=== PATIENT | female | born 1995 | race Caucasian/White ===

== ENCOUNTER → 2020-10-03 | Outpatient (CLI) | payer OTHER, SELFPAY ==
[2020-10-03 14:13] VITALS: BMI 22.8
[2020-10-07 07:06] LABS: Chlamydia By Nucleic Acid AMP Negative (Negative)
[2020-10-07 12:34] LABS: Gonococcus By Nucleic Acid AMP Negative (Negative)
== END | disposition home or self-care (01) ==
LOC: LABSPEC 16:17
PROVIDERS: Referring Provider Nurse Practitioner Women's Health; Visit Provider Nurse Practitioner Women's Health
DX: Z11.3 Encounter for screening for infections with a predominantly sexual mode of transmission (principal)
CPT/HCPCS: 87491; 87591

== ENCOUNTER → 2021-02-21 14:24 | Outpatient (CLI) | payer OTHER, SELFPAY ==
[2021-02-17 13:47] VITALS: BMI 22.8
--- NOTE | 2021-02-21 14:27 | US_ITS ---
STUDY: ULTRASOUND OF THE FEMALE PELVIS - COMPLETE REASON FOR EXAM: Female, 25 years old. Pain LMP: TECHNIQUE: Transabdominal and Transvaginal TECHNICAL QUALITY: Adequate. COMPARISON: None. FINDINGS: The uterus is anteverted and is in a midline position. The uterus measures 8.4 x 5.6 x 2.9 cm. Normal uterine cervix. The endometrium measures 3.9 mm in thickness, and is hyperechoic. There is no demonstrated endometrial mass. There is no demonstrated myometrial mass. I.U.D. - The patient does have an I.U.D. within the fundus. The right ovary is visualized. The right ovary measures 2.7 x 1.4 x 1.8 cm. There is no right ovarian cyst or ovarian mass. There is no visualized right adnexal mass or complex lesion. There is normal arterial and normal venous vascularity. The left ovary is visualized. The left ovary measures 2.7 x 2.8 x 2.7 cm. There are 2 small left ovarian follicles one measuring 1.1 x 0.9 cm and the other measuring 1.3 x 0.8 cm.. There is no visualized left adnexal mass or complex lesion. There is normal arterial and normal venous vascularity. There is no fluid in the cul-de-sac. The pre void volume of the bladder was 116.48 ml. The post void volume of the bladder was ml. Polycystic ovary disease: No. US/Pelvic (Non ) IMPRESSION: Normal female pelvis. IUD within the pelvis. Small left ovarian follicles. No visualized torsion. Electronically Signed: Laine Martin MD at 3:29 EDT Tel , Service support ,
--- NOTE | 2021-02-21 14:27 | US_ITS ---
STUDY: ULTRASOUND OF THE FEMALE PELVIS - COMPLETE REASON FOR EXAM: Female, 25 years old. Pain LMP: TECHNIQUE: Transabdominal and Transvaginal TECHNICAL QUALITY: Adequate. COMPARISON: None. FINDINGS: The uterus is anteverted and is in a midline position. The uterus measures 8.4 x 5.6 x 2.9 cm. Normal uterine cervix. The endometrium measures 3.9 mm in thickness, and is hyperechoic. There is no demonstrated endometrial mass. There is no demonstrated myometrial mass. I.U.D. - The patient does have an I.U.D. within the fundus. The right ovary is visualized. The right ovary measures 2.7 x 1.4 x 1.8 cm. There is no right ovarian cyst or ovarian mass. There is no visualized right adnexal mass or complex lesion. There is normal arterial and normal venous vascularity. The left ovary is visualized. The left ovary measures 2.7 x 2.8 x 2.7 cm. There are 2 small left ovarian follicles one measuring 1.1 x 0.9 cm and the other measuring 1.3 x 0.8 cm.. There is no visualized left adnexal mass or complex lesion. There is normal arterial and normal venous vascularity. There is no fluid in the cul-de-sac. The pre void volume of the bladder was 116.48 ml. The post void volume of the bladder was ml. Polycystic ovary disease: No. US/Transvaginal Non- IMPRESSION: Normal female pelvis. IUD within the pelvis. Small left ovarian follicles. No visualized torsion. Electronically Signed: Laine Martin MD at 3:29 EDT Tel , Service support ,
== END ==
PROVIDERS: Referring Provider Nurse Practitioner Women's Health; Visit Provider Nurse Practitioner Women's Health
DX: R10.2 Pelvic and perineal pain (principal)
CPT/HCPCS: 76830; 76856; 93976

== ENCOUNTER 2021-04-03 13:45 | Emergency (ER) | payer OTHER, SELFPAY ==
[2021-04-03 13:46] VITALS: BP 123/75; PULSE 89; RESP 14; TEMP 36.2; O2SAT 100; BMI 22.8
--- NOTE | 2021-04-03 14:00 | EDS_ITS ---
HPI History of Present Illness Chief Complaint: Flank Pain Informant: patient Onset/Context/Timing Onset: - (Please read HPI) Context: Sudden Onset Timing: Intermittent Quality: Varies depending on intensity Location: Anterior over right kidney Current Severity: Mild Maximum Severity: Severe Worsened by: Nothing Relieved by: Nothing Associated Symptoms Associated Symptoms: Please read HPI Narrative Narrative: Patient is a 25-year-old female who presents with right anterior abdominal pain located over the right kidney. 2 to 3 weeks ago she experienced back pain. She thought this was due to muscle skeletal pain. Several days ago she had dysuria and cloudy urine. She no longer has cloudy urine or dysuria. She states her menses is a couple daily. She does use an IUD. She states her last menses was a couple days late. She has no signs or symptoms of . She denies fever, chills night sweats. She denies history of renal or ureterolithiasis. She denies history of pyelonephritis. She has a remote history of urinary tract infection. She denies vaginal bleeding or vaginal discharge. She denies intolerance to greasy or fried foods. There is no family history of cholelithiasis. She denies respiratory symptoms. Prior similar symptoms: No Recent Illness/Hospitalization: No PFSH PFSH Medical History no medical history no medical history Home Medications citalopram [Celexa] 20 mg PO DAILY 04/03/21 [History Last Taken Unknown] Allergy/AdvReac Type Severity Reaction Status Date / Time amoxicillin Allergy Rash Verified 04/03/21 13:46 Surgical History History of appendectomy Social History (Updated 04/03/21 @ 14:[address] Fernando Watkins MD) household members: significant other Smoking Status: Never smoker alcohol intake: current alcohol intake frequency: other substance use type: does not use ROS ROS ED Constitutional Constitutional ED: Denies chills, fever(s), subjective or sweats Eyes Eyes: Denies blurry vision, change in vision or diplopia ENT ENT ED: Denies ear pain, rhinorrhea or sore throat Cardiovascular Cardiovascular: Denies chest pain, orthopnea, palpitations or paroxysmal nocturnal dyspnea Respiratory/Chest Respiratory/Chest: Denies cough, dyspnea, dyspnea on exertion, orthopnea or paroxysmal nocturnal dyspnea Gastrointestinal Gastrointestinal: Reports abdominal pain; Denies diarrhea, nausea or vomiting Genitourinary Genitourinary ED: Denies dysuria, hematuria or urinary frequency Musculoskeletal Musculoskeletal: Reports back pain; Denies arthralgias, myalgias or neck pain Integumentary Denies Abrasions or rash Neurologic Neurologic: Denies headache(s), paresthesias or weakness Allergic/Immunologic Allergic/Immunologic ED: Denies mouth swelling or urticaria EXAM Physical Exam Const Vital Signs: 04/03/21 13:46 Temperature 97.2 F L Temperature Source Temporal Pulse Rate 89 Respiratory Rate 14 Blood Pressure 123/75 H Blood Pressure Mean 91 Pulse Ox 100 Oxygen Delivery Method Room Air Positive well nourished and well developed; Negative for obese, cachectic, contractures or unkempt General Appearance ED: well developed and NAD; Negative for unkempt, cachectic, contractures or cyanotic Nutritional Appearance: Negative for cachectic or obese HEENT Reports moist mucous membranes HEENT Narrative: Head is atraumatic normocephalic. Pupils are equal round reactive. Nares patent. Eyes PERRL and EOMs intact bilaterally General Eye ED: Negative for pale conjunctiva or scleral icterus Neck no lymphadenopathy, supple and no JVD Resp normal respiratory effort and clear to auscultation bilaterally Cardio regular rate, regular rhythm, S1 normal heart sound, S2 normal heart sound and no murmurs GI normal to inspection, nondistended, normoactive bowel sounds Palpation: soft and tender other (Over the right kidney) Back/Spine no CVA tenderness Cervical Spine: Negative for cervical spine tenderness Thoracic Spine / Upper Back: Negative for thoracic spinal tenderness or paraspinal muscle tenderness Neuro oriented x3 and CN's II-XII intact bilaterally Sensorium / Orientation: alert Psych mental status grossly normal Appearance: Negative for unkempt Skin no rashes or lesions noted and no wounds MDM MDM MDM Narrative Medical decision making narrative: Differential diagnoses be abdominal pain unknown etiology, pyelonephritis, obstructing ureteral stone, atypical presentation for biliary disease. Lab Data Attestation: I reviewed the patient's lab results. Lab results narrative: Laboratory work-up is unremarkable. CAT scan reveals a right ovarian cyst. This may be the cause of her pain since everything else is normal. Labs: Laboratory Results - last 24 hr 04/03/21 04/03/21 04/03/21 14:00 14:00 14:00 WBC 5.8 RBC 4.54 Hgb 12.9 Hct 39.4 MCV 86.8 MCH 28.4 MCHC 32.7 RDW Std Deviation 38.5 RDW Coeff of [place]sh[place] 12.0 Plt Count 192 MPV 10.7 Immature Gran % (Auto) 0.200 Neut % (Auto) 69.8 Lymph % (Auto) 21.1 [place] % (Auto) 6.5 Eos % (Auto) 1.9 Baso % (Auto) 0.5 Absolute Neuts (auto) 4.1 Absolute Lymphs (auto) 1.23 Nucleated RBC % 0 Sodium 138 Potassium 4.0 Chloride 107 Carbon Dioxide 28.0 Anion Gap 3 L BUN 11 Creatinine 0.71 Estim Creat Clear Calc 124.31 Est GFR (MDRD) Af Amer 131 Est GFR (MDRD) Non-Af 109 BUN/Creatinine Ratio 15.6 Glucose 80 Calcium 8.8 Serum , Qual NEGATIVE Urine Color Urine Clarity Urine pH Ur Specific [place] Urine Protein Urine Glucose (UA) Urine Ketones Urine Occult Blood Urine Nitrite Urine Bilirubin Urine Urobilinogen Ur Leukocyte Esterase Urine RBC Urine WBC Ur Squamous Epith Cells Urine Bacteria Urine Mucus 04/03/21 14:15 WBC RBC Hgb Hct MCV MCH MCHC RDW Std Deviation RDW Coeff of [place] Plt Count MPV Immature Gran % (Auto) Neut % (Auto) Lymph % (Auto) [place] % (Auto) Eos % (Auto) Baso % (Auto) Absolute Neuts (auto) Absolute Lymphs (auto) Nucleated RBC % Sodium Potassium Chloride Carbon Dioxide Anion Gap BUN Creatinine Estim Creat Clear Calc Est GFR (MDRD) Af Amer Est GFR (MDRD) Non-Af BUN/Creatinine Ratio Glucose Calcium Serum , Qual Urine Color Yellow Urine Clarity Sl. Cloudy Urine pH 8.0 Ur Specific [place] 1.015 Urine Protein Negative Urine Glucose (UA) Normal Urine Ketones Negative Urine Occult Blood Negative Urine Nitrite Negative Urine Bilirubin Negative Urine Urobilinogen Normal Ur Leukocyte Esterase Negative Urine RBC 0 SEEN Urine WBC 0 SEEN Ur Squamous Epith Cells 0-5 SEEN Urine Bacteria 0 SEEN Urine Mucus 0 SEEN Radiography Diagnostic Testing: Radiology Impression Abdomen/Pelvis CT 04/03/21 15:05 IMPRESSION: 1.7 cm x 2.6 cm right ovarian cyst. Neither the is seen within the uterus. Electronically Signed: Boom Oneill MD at 15:34 EDT , Service support , Discharge Plan Triage Chief Complaint: Flank Pain ED Provider: Fernando Watkins Dx/Rx/DC Orders Clinical Impression: Cyst of right ovary Instructions: ED Ovarian Cyst Prescriptions: No Action citalopram [Celexa] 20 mg Tablet 20 mg PO DAILY RF: 0 Primary Care Provider: Care Physician,No Primary Referrals: Care Physician,No Primary [Primary Care Provider] - Doctor,Your [STAFF PHYSICIAN] - 1 Week if not improving Disposition Disposition: Home, Self Care
[2021-04-03 14:12] LABS: Absolute Lymphocyte Count 1.23 X10^3/uL (0.83-4.51); Absolute Neutrophil Count 4.1 X10^3/uL (2.0-7.7); Basophil# 0.03 X10^3/uL; Basophil% 0.5 % (0-1); Eosinophil# 0.11 X10^3/uL; Eosinophils% 1.9 % (0-5); Hematocrit 39.4 % (37-47); Hemoglobin 12.9 g/dL (12.0-15.0); Lymphocyte # 1.23 X10^3/ul (0.83-4.51); Lymphocyte % 21.1 % (19-41); Mean Corp Hgb Conc 32.7 g/dL (32-36); Mean Corpuscular Hgb 28.4 pg (27.0-32.0); Mean Corpuscular Volume 86.8 fL (81-99); Mean Platelet Vol. 10.7 fl (6.2-12.0); Monocyte# 0.38 X10^3/uL; Monocyte% 6.5 % (0-10); NRBC Flagged by Analyzer 0 % (0-5); Neutrophil # 4.07 X10^3/uL (2.7-7.7); Neutrophil % 69.8 % (47-70); Platelet Count 192 K/mm3 (150-450); RBC Distribution Width SD 38.5 fl (35.1-43.9); Red Blood Count 4.54 M/mm3 (4.2-5.4); White Blood Count 5.8 K/mm3 (4.4-11.0)
[2021-04-03] MEDS: 0.9% Normal Saline 1,000 ML 250 ML IV (14:17)
[2021-04-03] MEDS: Ketorolac 15 MG/ML Vial IV (14:17)
[2021-04-03 14:21] LABS: Bacteria 0 SEEN /hpf (None Seen); Color, Urine Yellow (Yellow); Glucose, Dipstick Normal (Normal); Ketone-Dipstick Negative (Negative); Leukocyte Esterase-Dipstick Negative /ul (Negative); Mucous, Urine 0 SEEN /hpf (<or=2+); Nitrite-Dipstick Negative (Negative); Occult Blood-Urine Negative /ul (Negative); Protein-Dipstick Negative (Negative); Red Blood Cells-Urine 0 SEEN /hpf (0-5); Specific Gravity, Urine 1.015 (1.002-1.030); Urine Bilirubin Dipstick Negative (Negative); Urine Clarity Sl. Cloudy (Clear); Urine Urobilinogen Normal (Normal); White Blood Cells 0 SEEN /hpf (0-5)
[2021-04-03 14:24] LABS: Anion Gap 3 (5-15); BUN 11 mg/dL (7-18); BUN/Creat Ratio 15.6 RATIO (10-20); Calcium,Total 8.8 mg/dL (8.5-10.1); Chloride 107 mmol/L (98-107); Creatinine, Serum 0.71 mg/dL (0.55-1.02); EST Glomerular Filtration Rate 109 mL/min (>60); Est Glom Filt Rate - Afr Amer 131 mL/min (>60); Estimated Creatinine Clearance 124.31 ml/min; Glucose 80 mg/dL (74-106); Sodium Level 138 mmol/L (136-145)
[2021-04-03 14:27] LABS: Internal QC Validated? YES +Cl - CLEAR BKGD; Pregnancy, Serum, hCG Quali. NEGATIVE Negative
--- NOTE | 2021-04-03 14:27 | CM.ED ---
SW Note Referral Source: Case Find Referral Reason: No Primary Care Physician (PCP) SW reviewed chart and noted that patient has no PCP. SW provided patient with list of [facility] and [facility] Physician List for reference. No other issues or concerns voiced at this time. SW remains available for any additional needs. Plan: Provided patient with PCP information Arlen QUIJANO
[2021-04-03 14:30] LABS: Squamous Epithelial Cells - UA 0-5 SEEN /hpf (5-10)
--- NOTE | 2021-04-03 15:05 | CT_ITS ---
STUDY: CT ABDOMEN AND PELVIS WITHOUT CONTRAST REASON FOR EXAM: Female, 25 years old. Right flank pain with radiation. RADIATION DOSAGE (If Supplied By Facility): CTDIvol = ( 6.61 ) mGy, DLP = ( 333.98 ) mGycm TECHNIQUE: Transaxial images were obtained from the dome of the diaphragm to the symphysis pubis without oral contrast, and without intravenous contrast. Sagittal and coronal images were reconstructed. Individualized dose optimization techniques were used for this CT. COMPARISON: None. FINDINGS: The visualized lung bases are unremarkable. The visualized portions of the heart are within normal limits. Normal liver. Normal gallbladder and extrahepatic biliary system. Normal spleen. Normal pancreas. Normal bilateral adrenal glands. Normal right kidney. Normal left kidney. Normal visualized stomach. Normal small intestine. There are scattered colonic diverticula consistent with diverticulosis. The patient is status post appendectomy. Normal abdominal aorta. Normal inferior vena cava. Normal retroperitoneum. Normal urinary bladder. There is a 1.7 cm x 2.6 cm right ovarian cyst. An IUD is seen within the uterus. Normal abdominal wall. Normal osseous structures. CT/Abdomen/Pelvis without Cont IMPRESSION: 1.7 cm x 2.6 cm right ovarian cyst. Neither the is seen within the uterus. Electronically Signed: Boom Oneill MD at 15:34 EDT , Service support ,
[2021-04-03 16:51] VITALS: BP 118/77; PULSE 64; RESP 16; O2SAT 99
== END 2021-04-03 16:58 | disposition home or self-care (01) ==
PROVIDERS: Emergency Provider Emergency Medicine
DX: N83.201 Unspecified ovarian cyst, right side (principal); Z87.440 Personal history of urinary (tract) infections
CPT/HCPCS: 74176; 80048; 81001; 84703; 85025; 96361; 96374; 99283; A4216

== ENCOUNTER 2021-04-29 11:06 | Day surgery (SDC) | payer OTHER, SELFPAY ==
[2021-04-28 09:32] LABS: Absolute Lymphocyte Count 1.28 X10^3/uL (0.83-4.51); Absolute Neutrophil Count 3.5 X10^3/uL (2.0-7.7); Basophil# 0.03 X10^3/uL; Basophil% 0.6 % (0-1); Eosinophil# 0.21 X10^3/uL; Eosinophils% 3.9 % (0-5); Hematocrit 37.2 % (37-47); Lymphocyte # 1.28 X10^3/ul (0.83-4.51); Lymphocyte % 23.9 % (19-41); Mean Corp Hgb Conc 32.3 g/dL (32-36); Mean Corpuscular Hgb 28.4 pg (27.0-32.0); Mean Corpuscular Volume 87.9 fL (81-99); Mean Platelet Vol. 11.2 fl (6.2-12.0); Monocyte# 0.36 X10^3/uL; Monocyte% 6.7 % (0-10); NRBC Flagged by Analyzer 0 % (0-5); Neutrophil # 3.45 X10^3/uL (2.7-7.7); Neutrophil % 64.5 % (47-70); Platelet Count 190 K/mm3 (150-450); RBC Distribution Width CV 12.1 % (11.6-14.6); Red Blood Count 4.23 M/mm3 (4.2-5.4); White Blood Count 5.4 K/mm3 (4.4-11.0)
[2021-04-29] VITALS (9 sets, daily range): BP systolic 83–114; BP diastolic 53–74; PULSE 69–96; RESP 16–18; TEMP 36.7–37.5; O2SAT 94–100; BMI 22.3
[2021-04-29 11:43] LABS: Internal QC Validated? YES +Cl - CLEAR BKGD; Pregnancy, Urine Negative Negative
[2021-04-29] MEDS: Lactated Ringers 1,000 ML 100 ML IV (11:56)
--- NOTE | 2021-04-29 13:27 | PCM.HP.BLA ---
History and Physical Date of Admission: 04/29/21 Intake Visit Reasons: diag. lap cystoscopy chromotubation Chief Complaint: pre op [employer] Install[employer] Supervisor Required: No Is patient in pain?: No Allergies amoxicillin Allergy (Intermediate, Verified 04/22/21 12:52) Rash Medications ascorbate calcium (vitamin C) 500 mg tablet 500 mg PO DAILY 10/03/20 [History Confirmed 04/22/21] levonorgestrel 20 mcg/24 hours (6 yrs) 52 mg intrauterine device 1 device INTRA-UTER ONCE 10/03/20 [History Confirmed 04/22/21] cetirizine 10 mg capsule 10 mg PO DAILY PRN 01/18/21 [History Confirmed 04/22/21] melatonin 3 mg capsule 3 mg PO HS PRN 01/18/21 [History Confirmed 04/22/21] triamcinolone acetonide 0.1 % topical ointment 1 applic TOPICAL BID #30 g 03/07/21 [Rx Confirmed 04/22/21] citalopram [Celexa] 20 mg PO DAILY 04/03/21 [History Confirmed 04/22/21] Is last menstrual period known: No Post menopausal: No Patient : No : No [facility] Medical History (Updated 04/22/21 @ 12:53 by Rain Landaverde) Anxiety and depression Asthma Surgical History History of appendectomy History of appendectomy Family History Mother Endometriosis Uterine cyst Social History household members: significant other current occupational status: employed current occupation: [employer] - [employer] history of recent travel: No sexually active: Yes Smoking Status: Never smoker alcohol intake: current alcohol intake frequency: other substance use type: does not use diet: gluten free what type of physical activity do you participate in: none seatbelt use: always do you feel safe at home: Yes additional social history: Lesly Rodríguez [facility] diag. lap cystoscopy chromotubation Details: DANIEL MIRANDA is a 25 year old who presents for preop visit still having pelvic pain despite medical treatment with depo provera and iud. Pregancy History 0 Elective abortions Hx Para Spontaneous abortions Hx # Term Pregnancies Ectopic pregnancies Hx # Pregnancies Multiple births # of living children ROS Const Constitutional: Denies fatigue, weight gain or weight loss ENT ENT: Reports system reviewed and no additional complaints, except as documented Cardio Card: Denies chest pain Resp Resp: Denies cough or dyspnea GI GI: Reports as per HPI, abdominal pain and constipation; Denies nausea or vomiting : Denies nipple discharge, urinary frequency, urinary incontinence, urinary hesitancy, urinary urgency, vaginal discharge, vaginal dryness, vaginal odor or vaginal pruritus Musc Musc: Denies arthralgias, back pain or muscle weakness Skin Skin/Breast: Denies alopecia, change in hair, dry skin, breast mass, breast pain, breast skin changes or nipple discharge Neuro Neuro: Reports system reviewed and no additional complaints, except as documented Psych Psych: Reports system reviewed and no additional complaints, except as documented Endo Endo: Denies cold intolerance, excessive sweating, heat intolerance or polydipsia Navin/Lymph Hematologic/Lymphatic: Denies easy bleeding, Denies easy bruising and Denies lymphadenopathy Exam Const General: cooperative, healthy appearing, comfortable, no acute distress and well developed Orientation: alert [facility] Head: normal to inspection and normocephalic Ears: hearing grossly normal bilaterally and external ears normal Nose: external nose normal and nares normal Face and sinus: normal facial exam Neck Neck: normal visual inspection and no lymphadenopathy Thyroid: thyroid normal Chest Chest palpation & inspection: normal inspection of the chest Resp Effort & Inspection: normal respiratory effort Auscultation: clear to auscultation bilaterally Cardio Rate: regular rate Rhythm: regular rhythm Heart Sounds: S1 normal and S2 normal GI Inspection: normal to inspection and non-distended Palpation: soft and no hepatosplenomegaly Musc Other: gross motor intact no deficits, full bilateral strength Skin General: no rashes or lesions noted Neuro General: patient alert, patient awake, moves all extremities and no focal motor deficits Motor: muscle tone normal throughout Extrem General: normal to inspection and no pedal edema Psych Appearance: grossly normal Mental Status: mental status grossly normal Affect: normal affect Speech and Movement: speech and movement normal Coding Level of Care Code No Charge Diagnoses IUD (intrauterine device) in place Z97.5 Pelvic pain R10.2 Assessment and Plan Assessment and Plan (1) IUD (intrauterine device) in place: Status: Acute Comment: have US available at surgery to confirm positioning after surgery (2) Pelvic pain: Status: Chronic Comment: suspect endometriosis. failed ocp, depo provera, and peristent with IUD. plan diagnostic laparoscopy and cystoscopy and chromotubation. Plan - Dr. Yojana Preston MD: After discussing the patient's diagnosis and treatment plan options, patient wishes to proceed with surgical management. I have discussed with the patient the risks, benefits, and alternatives of the procedure which include but are not limited to risks of anesthesia, bleeding, infection, possible damage to bowel, bladder, or surrounding vasculature which could lead to additional surgery to evaluate any complications. Patient agrees to procedure and wishes to proceed. ACOG/uptodate references given for additional information regarding procedure. UPDATE- I have seen the patient and performed any clinically relevant updates to the history and physical exam. Yojana Preston MD
--- NOTE | 2021-04-29 13:28 | DCINST_ITS ---
Discharge Instructions Diet Discharge Diet: No restrictions Activity Discharge Activity: Return to Normal Activity, May Not Drive (for 2 weeks or while taking narcotic pain meds.), May Shower and May Take a Tub Bath (in 7 days) May resume sexual activity in: 1 week Weight Bearing Status: Full weight bearing Dressing / Incision Call your doctor if your incision/area has: Continuous Slow Oozing, Sudden Increased Bleeding, Increased Pain/ Swelling, Increased Redness and Foul Smelling Discharge Call your doctor if you observe: Fever of 101 or Higher, Using more than 1 pad per hour, Shortness of breath, Chest pain and Uncontrolled pain Suture Line Care: Avoid Pulling/Pushing and Avoid Pinching/Bending Remove Dressing in: 1 week (if present) Cleanse incision/area with: Soap & Water and Keep Dressing Clean & Dry Follow Up Care When: Call to make an appointment with your doctor for a fu/incision check in 1- 2 weeks. Test Results: Test results from this visit will be discussed in further detail at your follow-up appointment, if applicable. Discharge Plan Admission Primary Reason for Your Visit: laparoscopy Attending Provider: Yojana Preston Primary Care Provider: Care Physician,Wen Primary Discharge Orders/Prescriptions Prescriptions: New naproxen 250 MG tablet 250 - 500 mg PO Q8H PRN PRN (Reason: MILD PAIN) Qty: 30 RF: 1 Continued ascorbate calcium (vitamin C) 500 mg tablet 500 mg PO DAILY RF: 0 levonorgestrel 20 mcg/24 hours (6 yrs) 52 mg intrauterine device 20 mcg/24 hours (6 yrs) 52 mg intrauterine device 1 device INTRA-UTER ONCE RF: 0 melatonin 3 mg capsule 5 mg PO HS PRN (Reason: Sleep) RF: 0 Zyrtec 10 mg capsule 10 mg PO DAILY RF: 0 triamcinolone acetonide 0.1 % ointment 1 applic topical BID Qty: 30 RF: 2 albuterol 90 mcg/actuation Aerosol 90 mcg INHALATION PRN PRN (Reason: ASTHMA) RF: 0 cranberry 1,000 mg Capsule 1,000 mg PO DAILY RF: 0 citalopram [Celexa] 20 mg Tablet 20 mg PO DAILY RF: 0 Referrals / Follow Up: Care Physician,No Primary [Primary Care Provider] - Disposition Disposition (needs filled in before D/C Order can be placed): Home, Self Care
--- NOTE | 2021-04-29 13:28 | PCM.OPRPT ---
Problems Associated Problem List Diagnoses (1) Pelvic pain: (2) IUD (intrauterine device) in place: (3) Endometriosis determined by laparoscopy: Report of Operation Pre-Operative Diagnosis: see problem list Post-Operative Diagnosis: same Surgery/Procedure Performed:: Diagnostic laparoscopy ablation endometriosis cystoscopy chromotubation, adhesiolysis Description of Surgical Findings:: nl uterus tubes ovaries, patent tubes, endometriosis implants vesical peritoneum, bilateral ovarian fossa, cul de sac, posterior uterine corpus, bilateral bowel to pelvic side wall adhesions Type of Anesthesia: General and Local Specimen's removed: none Drains: none Estimated Blood Loss (mL): 50 Fluids Replaced: crystalloid Description of Procedure: Patient was taken in the operating room and was placed under general anesthesia was prepped and draped in normal sterile fashion in the dorsal lithotomy position. Bladder was drained of clear urine and SCDs were on preoperatively. Uterus was sounded and a uterine manipulator was placed after dilating. Attention was then paid to the abdominal portion of the procedure and the umbilicus was elevated with towel clamps and injected with Marcaine and after a 5 mm incision was made and the Veress needle was entered into the abdomen confirmed to be intra-abdominal with a low opening pressure of less than 5 mmHg. Abdomen was insufflated with CO2 gas and a 5 mm optical trocar was placed under direct visualization. Left lower quadrant ports were placed under direct visualization. See surgical findings for the details of endometriosis implants. Using the LigaSure device bilateral bowel to pelvic sidewall adhesions were taken down bluntly and with the device. Using monopolar energy all endometriosis implants were superficially ablated. Chromotubation was performed and bilateral tubal patency was confirmed without any complication. Cystoscopy was also performed and particulate was seen throughout the fluid that was filling the bladder cavity. The middle right upper part of the bladder below the dome revealed a white fungating lesion that appeared adherent but not particularly vascular. Unclear whether this was a stone regrowth. Will recommend follow-up with urogynecology as an outpatient for evaluation and management. Liver and upper abdomen were visualized notably within normal limits and no other gross abnormalities were seen in the abdomen. All instruments removed from the abdomen after gas was desufflated. Port sites were closed with 3-0 Monocryl Steri's and op sites were applied. All instruments removed from the vagina, IUD was confirmed via ultrasound to be correctly positioned in the fundus of the uterus and the right orientation, and patient was awoken and taken recovery in stable condition. Grafts/Implants Used: none Complications none Admit VTE Documentation VTE Present on Admission: No VTE Mechan Device Prophylaxis: SCD's Multi Select Codes Urinary/Genital Urinary/Genital CPT Codes: 80649 Cystoscopy, 60916 Chromotubation, 29846 Laproscopic ablation endometriosis and Other Procedure See Report ([id number])
[2021-04-29] MEDS: Bupivacaine 0.25% 30 ML Vial (14:15)
[2021-04-29] MEDS: fentaNYL 100 MCG/2 ML Ampul 50 MCG IV (16:47)
== END 2021-04-29 18:57 | disposition home or self-care (01) ==
LOC: SDC 11:07 → AC 11:08
PROVIDERS: Referring Provider Obstetrics & Gynecology; Visit Provider Obstetrics & Gynecology
PROC: (CPT 49320; principal; 2021-04-29 13:50)
DX: N80.9 Endometriosis, unspecified (principal); Z97.5 Presence of (intrauterine) contraceptive device; N73.6 Female pelvic peritoneal adhesions (postinfective)
CPT/HCPCS: 58350; 58662; 36415; 81025; 85025; 86850; 86900; 86901; 87426; C9803; J7120; J2405; Q9968

== ENCOUNTER 2021-09-12 14:56 | Outpatient (CLI) | payer OTHER, SELFPAY ==
[2021-09-12 16:47] LABS: Absolute Lymphocyte Count 1.81 X10^3/uL (0.83-4.51); Absolute Neutrophil Count 5.2 X10^3/uL (2.0-7.7); Basophil# 0.03 X10^3/uL; Basophil% 0.4 % (0-1); Eosinophil# 0.11 X10^3/uL; Eosinophils% 1.5 % (0-5); Hematocrit 40.1 % (37-47); Hemoglobin 13.3 g/dL (12.0-15.0); Lymphocyte # 1.81 X10^3/ul (0.83-4.51); Lymphocyte % 23.9 % (19-41); Mean Corp Hgb Conc 33.2 g/dL (32-36); Mean Corpuscular Hgb 28.7 pg (27.0-32.0); Mean Corpuscular Volume 86.6 fL (81-99); Mean Platelet Vol. 11.2 fl (6.2-12.0); Monocyte# 0.44 X10^3/uL; Monocyte% 5.8 % (0-10); NRBC Flagged by Analyzer 0 % (0-5); Neutrophil # 5.17 X10^3/uL (2.7-7.7); Neutrophil % 68.1 % (47-70); Platelet Count 219 K/mm3 (150-450); RBC Distribution Width CV 12.4 % (11.6-14.6); RBC Distribution Width SD 39.2 fl (35.1-43.9); Red Blood Count 4.63 M/mm3 (4.2-5.4); White Blood Count 7.6 K/mm3 (4.4-11.0)
[2021-09-12 17:39] LABS: Vitamin B12 336 pg/mL (211-911)
[2021-09-12 17:47] LABS: ALB/GLOB Ratio 1.2 RATIO (0.9-2.4); AST(SGOT) 16 U/L (15-37); Alanine Aminotransfer ALT/SGPT 26 U/L (13-56); Albumin, Serum 4.2 g/dL (3.2-5.0); Alkaline Phosphatase 60 U/L (45-117); Anion Gap 5 (5-15); BUN 12 mg/dL (7-18); BUN/Creat Ratio 15.1 RATIO (10-20); Calcium,Total 8.9 mg/dL (8.5-10.1); Chloride 107 mmol/L (98-107); EST Glomerular Filtration Rate 94 mL/min (>60); Est Glom Filt Rate - Afr Amer 114 mL/min (>60); Globulin 3.6 g/dL (2.2-4.2); Glucose 79 mg/dL (74-106); Protein, Total 7.8 g/dL (6.4-8.2); Sodium Level 138 mmol/L (136-145); T4 Free Direct 0.92 ng/dL (0.76-1.46); Thyroid Stim Hormone (TSH) 1.18 uIU/mL (0.358-3.74)
== END 2021-09-12 23:59 | disposition home or self-care (01) ==
PROVIDERS: PCP Internal Medicine; Referring Provider Internal Medicine; Visit Provider Internal Medicine
DX: F41.9 Anxiety disorder, unspecified (principal); F32.A Depression, unspecified
CPT/HCPCS: 36415; 80053; 82607; 84439; 84443; 85025

== ENCOUNTER → 2021-11-10 | Outpatient (CLI) | payer OTHER, SELFPAY ==
[2021-11-10 17:05] LABS: Absolute Lymphocyte Count 1.61 X10^3/uL (0.83-4.51); Absolute Neutrophil Count 4.6 X10^3/uL (2.0-7.7); Basophil# 0.06 X10^3/uL; Basophil% 0.9 % (0-1); Eosinophil# 0.11 X10^3/uL; Eosinophils% 1.6 % (0-5); Hematocrit 37.5 % (37-47); Hemoglobin 12.3 g/dL (12.0-15.0); Lymphocyte # 1.61 X10^3/ul (0.83-4.51); Lymphocyte % 23.9 % (19-41); Mean Corp Hgb Conc 32.8 g/dL (32-36); Mean Corpuscular Hgb 28.3 pg (27.0-32.0); Mean Corpuscular Volume 86.4 fL (81-99); Mean Platelet Vol. 11.2 fl (6.2-12.0); Monocyte# 0.38 X10^3/uL; Monocyte% 5.6 % (0-10); NRBC Flagged by Analyzer 0 % (0-5); Neutrophil # 4.55 X10^3/uL (2.7-7.7); Neutrophil % 67.6 % (47-70); Platelet Count 208 K/mm3 (150-450); RBC Distribution Width SD 38.2 fl (35.1-43.9); Red Blood Count 4.34 M/mm3 (4.2-5.4); White Blood Count 6.7 K/mm3 (4.4-11.0)
== END | disposition home or self-care (01) ==
LOC: BIMLAB 16:10
PROVIDERS: PCP Internal Medicine; Referring Provider Internal Medicine; Visit Provider Internal Medicine
DX: N93.9 Abnormal uterine and vaginal bleeding, unspecified (principal)
CPT/HCPCS: 36415; 85025

== ENCOUNTER → 2022-09-25 | Outpatient (CLI) | payer OTHER, SELFPAY ==
[2022-09-25 10:16] LABS: Mucous, Urine 0 SEEN /hpf (<or=2+); Red Blood Cells-Urine 0 SEEN /hpf (0-5)
[2022-09-25 10:27] LABS: Color, Urine Yellow (Yellow); Glucose, Dipstick Normal (Normal); Ketone-Dipstick 5 mg/dl (Negative); Leukocyte Esterase-Dipstick 500 /ul (Negative); Nitrite-Dipstick Negative (Negative); Occult Blood-Urine 25 /ul (Negative); Protein-Dipstick 30 mg/dl (Negative); Urine Bilirubin Dipstick Negative (Negative); Urine Clarity Sl. Cloudy (Clear); Urine Urobilinogen Normal (Normal)
[2022-09-25 10:33] LABS: White Blood Cells >100 SEEN /hpf (0-5)
[2022-09-25 10:34] LABS: Bacteria 2+ /hpf (None Seen); Squamous Epithelial Cells - UA 10-25 SEEN /hpf (5-10)
== END | disposition home or self-care (01) ==
LOC: LABSPEC 10:00
PROVIDERS: PCP Internal Medicine; Referring Provider Physician Assistant Surgical; Visit Provider Physician Assistant Surgical
DX: R39.9 Unspecified symptoms and signs involving the genitourinary system (principal)
CPT/HCPCS: 81001; 87086; 87088; 87186

== ENCOUNTER → 2022-10-16 | Outpatient (CLI) | payer OTHER, SELFPAY ==
--- NOTE | 2022-10-16 13:52 | US_ITS ---
INDICATION: AUB EXAMINATION: Ultrasound US Pelvis Non OB Complete With Transvaginal Imaging TECHNIQUE: Transabdominal and transvaginal pelvic ultrasound was performed. Grayscale, spectral waveform, and color flow Doppler evaluation of the adnexa. COMPARISON: 02/21/2021 FINDINGS: UTERUS: Anteverted. The uterus measures 7.2 x 4.7 x 3.5 cm. Possible incomplete septate morphology. The endometrial stripe measures 7 mm in AP diameter which is within normal limits. RIGHT OVARY: 4.0 x 3.3 x 2.1 cm. Non-enlarged, normal echogenicity. There is normal arterial inflow and venous outflow present in the right ovary. LEFT OVARY: 2.1 x 2.1 x 2.0 cm. Non-enlarged, normal echogenicity. There is normal arterial inflow and venous outflow present in the left ovary. FREE FLUID: None. US/Pelvic (Non ) IMPRESSION: No acute findings in the pelvis. Possible incomplete septate morphology. Electronically Signed: Jose Luis Kenney MD at 0:42 EDT ,
== END | disposition home or self-care (01) ==
LOC: US 13:50
PROVIDERS: PCP Internal Medicine; Referring Provider Obstetrics & Gynecology; Visit Provider Obstetrics & Gynecology
DX: N93.9 Abnormal uterine and vaginal bleeding, unspecified (principal)
CPT/HCPCS: 76830; 76856

== ENCOUNTER → 2022-12-25 | Outpatient (CLI) | payer OTHER, SELFPAY ==
[2022-12-25 15:35] LABS: Absolute Lymphocyte Count 1.56 X10^3/uL (0.83-4.51); Absolute Neutrophil Count 3.5 X10^3/uL (2.0-7.7); Basophil# 0.05 X10^3/uL; Basophil% 0.8 % (0-1); Eosinophil# 0.32 X10^3/uL; Eosinophils% 5.4 % (0-5); Hematocrit 37.2 % (37-47); Hemoglobin 11.8 g/dL (12.0-15.0); Lymphocyte # 1.56 X10^3/ul (0.83-4.51); Lymphocyte % 26.5 % (19-41); Mean Corp Hgb Conc 31.7 g/dL (32-36); Mean Corpuscular Hgb 27.6 pg (27.0-32.0); Mean Corpuscular Volume 87.1 fL (81-99); Mean Platelet Vol. 11.4 fl (6.2-12.0); Monocyte# 0.49 X10^3/uL; Monocyte% 8.3 % (0-10); NRBC Flagged by Analyzer 0 % (0-5); Neutrophil # 3.45 X10^3/uL (2.7-7.7); Neutrophil % 58.7 % (47-70); Platelet Count 218 K/mm3 (150-450); RBC Distribution Width CV 12.6 % (11.6-14.6); Red Blood Count 4.27 M/mm3 (4.2-5.4); White Blood Count 5.9 K/mm3 (4.4-11.0)
[2022-12-25 16:04] LABS: ALB/GLOB Ratio 1.2 RATIO (0.9-2.4); AST(SGOT) 22 U/L (15-37); Alanine Aminotransfer ALT/SGPT 26 U/L (13-56); Albumin, Serum 3.8 g/dL (3.2-5.0); Alkaline Phosphatase 65 U/L (45-117); Anion Gap 5 (5-15); BUN 11 mg/dL (7-18); BUN/Creat Ratio 13.7 RATIO (10-20); Calcium,Total 9.2 mg/dL (8.5-10.1); Chloride 108 mmol/L (98-107); EST Glomerular Filtration Rate 92 mL/min (>60); Est Glom Filt Rate - Afr Amer 112 mL/min (>60); Globulin 3.3 g/dL (2.2-4.2); Glucose 73 mg/dL (74-106); Protein, Total 7.1 g/dL (6.4-8.2); Sodium Level 139 mmol/L (136-145)
[2022-12-28 13:07] LABS: ANTINUCLEAR ANTIBODIES DIRECT Negative (Negative)
== END | disposition home or self-care (01) ==
LOC: BIMLAB 13:54
PROVIDERS: PCP Internal Medicine; Referring Provider Internal Medicine; Visit Provider Internal Medicine
DX: L30.9 Dermatitis, unspecified (principal)
CPT/HCPCS: 36415; 80053; 85025; 86038; 86225; 86235

== ENCOUNTER → 2023-01-26 | Outpatient (CLI) | payer OTHER, SELFPAY | END | disposition home or self-care (01) | LOC: LABSPEC 10:15 | PROVIDERS: PCP Internal Medicine; Referring Provider Physician Assistant Surgical; Visit Provider Physician Assistant Surgical | DX: R30.0 Dysuria (principal) | CPT/HCPCS: 87077; 87086; 87088; 87186 ==

== ENCOUNTER 2023-06-04 19:14 | Emergency (ER) | payer OTHER, SELFPAY ==
[2023-06-04 19:15] VITALS: BP 132/90; PULSE 98; RESP 18; TEMP 36.7; O2SAT 98; BMI 25.0
--- NOTE | 2023-06-04 19:49 | US_ITS ---
STUDY: FIRST TRIMESTER OBSTETRICAL ULTRASOUND REASON FOR EXAM: Female, 27 years old bleeding LMP: TECHNIQUE: Transvaginal TECHNICAL QUALITY: Adequate. PRIOR ULTRASOUND: None. FINDINGS: There is visualization of a single gestational sac in a normal intrauterine position. The mean sac diameter (MSD) measures 2.19 cm,. The gestational sac shape is within normal limits. There is a visualized yolk sac. Sac measures 3.2 mm The placenta is non-visualized. There is visualization of a live embryo. The crown-rump length (CRL) measures 1.01 cm, indicating an estimated gestational age (EGA) of 7 weeks, 1 days. There is demonstrated cardiac activity with a heart rate of 137 bpm. Small fluid collection adjacent to the gestational sac measuring 4.1 x 2 x .9 cm consistent with subchorionic hemorrhage The estimated gestation age (EGA) by LMP is 7 weeks, 0 days. The estimated date of delivery (CONNOR) by LMP is January 21, 2024. The estimated gestation age (EGA) by US is 7 weeks, 1 days. The estimated date of delivery (CONNOR) by US is January 20, 2024. The uterus measures 9.7 x 6.2 x 5.4 cm. There is no demonstrated uterine fibroid. The cervix is closed. The right ovary measures 2.9 x 1.2 x 1.5 cm. There is no right ovarian cyst. There is no visualized right adnexal mass or complex lesion. The left ovary measures 2.6 x 2 x 1.1 cm. There is no left ovarian cyst. There is no visualized left adnexal mass or complex lesion. There is no fluid in the cul de sac. US/Transvaginal w/Preg US IMPRESSION: Viable intrauterine gestation approximately 7 weeks gestational age with small subchorionic bleed Electronically Signed: Kwaku Ward MD at 20:57 EST ,
[2023-06-04 20:18] LABS: Hemoglobin 12.5 g/dL (12.0-15.0)
--- NOTE | 2023-06-04 20:48 | ED.VIS.FEGU ---
HPI HPI - Female History of Present Illness Chief Complaint: Vag Bld, Preg Informant: patient Narrative Narrative: 27-year-old female undergoing IVF is approximately 7 weeks . She states that she was at dinner tonight when she felt bleeding and noticed that she had passed to pieces of tissue. She denies any significant cramping. She states she was diagnosed with a subchorionic bleed. She believes that she is O+. PFSH PFS Medical History Abnormal bleeding in menstrual cycle Alcohol use Anxiety Anxiety and depression Asthma Attention deficit disorder (ADD) in adult Chronic back pain Depression Dermatitis Gluten intolerance Heavy menstrual bleeding History of cardiac murmur Neck pain Seasonal allergies Shoulder pain Upper back pain on left side Home Medications cetirizine 10 mg capsule (Zyrtec) 10 mg PO DAILY 01/18/21 [History Last Taken 04/28/21] albuterol sulfate 90 mcg/actuation aerosol inhaler (ProAir HFA) 1 - 2 puff inhalation Q6H PRN shortness of breath or wheezing #8.5 grams 09/12/21 [Rx Last Taken Unknown] triamcinolone acetonide 0.1 % topical ointment 1 applic topical BID #454 grams 09/02/22 [Rx Last Taken Unknown] citalopram 40 mg tablet 40 mg PO DAILY #90 tabs 12/28/22 [Rx Last Taken Unknown] Allergy/AdvReac Type Severity Reaction Status Date / Time amoxicillin Allergy Intermediate Rash Verified 06/04/23 19:19 wheat Allergy Mild eczema, Verified 06/04/23 19:19 constipation Family History Mother Endometriosis Uterine cyst Grandfather Alcoholism Colon cancer Father Anxiety Thyroid disorder Brother Anxiety Grandmother Arthritis Bowel disease Aunt Cervical cancer Other Depression Heart disease Hypertension Melanoma Mental disorder Myocardial infarction Surgical History History of appendectomy Hx of wisdom tooth extraction Social History household members: significant other current occupational status: employed history of recent travel: No sexually active: Yes Smoking Status: Former smoker alcohol intake: current alcohol intake frequency: holidays/special occasions only substance use type: does not use diet: gluten free what type of physical activity do you participate in: walking frequency: 3-4 times per week seatbelt use: always do you feel safe at home: Yes additional social history: - Carlos Rodríguez ROS ROS ED Constitutional Constitutional ED: Denies chills or weight loss Eyes Eyes: Denies change in vision or diplopia ENT ENT ED: Denies ear pain, rhinorrhea or sore throat Cardiovascular Cardiovascular: Denies chest pain, orthopnea, palpitations or racing heartbeat Respiratory/Chest Respiratory/Chest: Denies cough, dyspnea or orthopnea Gastrointestinal Gastrointestinal: Denies abdominal pain, diarrhea, nausea or vomiting Genitourinary Genitourinary ED: Reports other Details: Vaginal bleeding mild cramping ; Denies dysuria, hematuria or urinary frequency Musculoskeletal Musculoskeletal: Denies arthralgias or myalgias Integumentary Denies abscess or rash Neurologic Neurologic: Denies headache(s) or weakness Psychiatric Psychiatric: Denies anxiety, depression, suicidal ideation or suicidal thoughts Endocrine Endocrinology: Denies polydipsia, polyphagia or polyuria Allergic/Immunologic Allergic/Immunologic ED: Denies mouth swelling, tongue swelling or urticaria EXAM Physical Exam Const Vital Signs: 06/04/23 19:15 Temperature 98.0 F Temperature Source Temporal Pulse Rate 98 Respiratory Rate 18 Blood Pressure 132/90 H Blood Pressure Mean 104 Pulse Ox 98 Positive well nourished and well developed General Appearance ED: well developed HEENT Reports normocephalic, head/scalp atraumatic and moist mucous membranes Eyes PERRL and EOMs intact bilaterally Neck no lymphadenopathy, supple and no JVD Resp normal respiratory effort and clear to auscultation bilaterally Cardio regular rate, regular rhythm and no murmurs GI normal to inspection, nondistended, normoactive bowel sounds and non-tender Palpation: soft Back/Spine no CVA tenderness and normal ROM Extremity normal to inspection General Extremety ED: Negative for edema General Extremity: Negative for edema Neuro oriented x3 and CN's II-XII intact bilaterally Sensorium / Orientation: alert Motor Exam: strength 5/5 throughout Psych Mood & Affect: anxious; Negative for depressed or tearful Skin no rashes or lesions noted and no wounds MDM MDM MDM Narrative Medical decision making narrative: Patient is O+. Hemoglobin 12.5 quantitative hCG 67,379. Formal obstetric ultrasound demonstrates a viable intrauterine gestation approximately 7 weeks. There is a small subchorionic bleed. At this point there is still a viable . Bleeding most likely due to the subchorionic bleed however miscarriage is still a possibility. She was advised on pelvic rest and avoidance of lifting. She is scheduled to see obstetrics in 1 week. She notes understanding of plan is comfortable with History & Record Review Discussion w/independent historian: Patient, Family and Significant other Lab Data Labs: Laboratory Results - last 24 hr 06/04/23 19:58 Hgb 12.5 Hct 38.0 HCG, Quant [id number] H Blood Type O POSITIVE Radiography Diagnostic Testing: Clinical Impression(s) from Imaging Studies Obstetrics Ultrasound 06/04/23 19:49 IMPRESSION: Viable intrauterine gestation approximately 7 weeks gestational age with small subchorionic bleed Electronically Signed: Kwaku Ward MD at 20:57 EST Reading Location ID and State: [address] [place] [address] Tel , Service support , Discharge Plan Triage Chief Complaint: Vag Bld, Preg ED Provider: Josh Harris Dx/Rx/DC Orders Clinical Impression: Subchorionic bleed, First trimester , First trimester bleeding Instructions: 1st Trimester, Bleeding During Early Prescriptions: No Action Zyrtec 10 mg capsule 10 mg PO DAILY albuterol sulfate [ProAir HFA] 90 mcg/actuation HFA aerosol inhaler 1 - 2 puff inhalation Q6H PRN (Reason: shortness of breath or wheezing) Qty: 8.5 1RF triamcinolone acetonide 0.1 % ointment 1 applic topical BID Qty: 454 2RF citalopram 40 mg tablet 40 mg PO DAILY Qty: 90 2RF Primary Care Provider: Ivory German Referrals: Ivory German MD [Primary Care Provider] - Yojana Preston MD [Med Staff - Active Staff] - [facility] appointment Disposition Disposition: Home, Self Care Discharge Date/Time: 06/04/23 21:26
== END 2023-06-04 21:26 | disposition home or self-care (01) ==
PROVIDERS: Emergency Provider Emergency Medicine; PCP Internal Medicine; Visit Provider Emergency Medicine
DX: O20.8 Other hemorrhage in early pregnancy (principal); Z87.891 Personal history of nicotine dependence; Z3A.01 Less than 8 weeks gestation of pregnancy
CPT/HCPCS: 76817; 84702; 85014; 85018; 86900; 86901; 99282; A4216

== ENCOUNTER → 2023-06-10 | Outpatient (CLI) | payer OTHER, SELFPAY ==
--- NOTE | 2023-06-10 16:31 | US_ITS ---
STUDY: FIRST TRIMESTER OBSTETRICAL ULTRASOUND REASON FOR EXAM: Female, 27 years old wellbeing LMP: 10/29/2022. TECHNIQUE: Transvaginal TECHNICAL QUALITY: Adequate. PRIOR ULTRASOUND: None. FINDINGS: There is visualization of a single gestational sac in a normal intrauterine position. The mean sac diameter (MSD) measures 3 cm, indicating an estimated gestational age (EGA) of 8 weeks, 1 days. The gestational sac shape is within normal limits. There is a visualized yolk sac. The yolk sac measures 3.5 mm. The placenta is non-visualized. There is visualization of a live embryo. The crown-rump length (CRL) measures 1.54 cm, indicating an estimated gestational age (EGA) of 7 weeks, 6 days. There is demonstrated cardiac activity with a heart rate of 177 bpm. The estimated gestation age (EGA) by LMP is 7 weeks, 6 days. The estimated date of delivery (CONNOR) by LMP is January 21, 2024. The estimated gestation age (EGA) by US is 8 weeks, 0 days. The estimated date of delivery (CONNOR) by US is January 20, 2024. The uterus measures 9.7 cm x 6.4 cm x 6.2 cm. There is no demonstrated uterine fibroid. The cervix is closed. 2.1 cm x 0.9 cm x 0.7 cm subchorionic bleed. The right ovary measures 1.7 cm x 2.2 cm x 2.2 cm. There is no right ovarian cyst. There is no visualized right adnexal mass or complex lesion. The left ovary measures 2.5 cm x 1.6 x 2 x 1.2 cm. There is no left ovarian cyst. There is no visualized left adnexal mass or complex lesion. There is no fluid in the cul de sac. US/Transvaginal w/Preg US IMPRESSION: Single live intrauterine gestation with mean gestational age of 8 weeks. Small subchorionic bleed. Electronically Signed: Boom Oneill MD at 14:01 EST ,
== END | disposition home or self-care (01) ==
LOC: US 16:30
PROVIDERS: PCP Internal Medicine; Referring Provider Obstetrics & Gynecology; Visit Provider Obstetrics & Gynecology
DX: O20.9 Hemorrhage in early pregnancy, unspecified (principal); Z3A.00 Weeks of gestation of pregnancy not specified
CPT/HCPCS: 76817

== ENCOUNTER → 2023-06-14 | Outpatient (CLI) | payer OTHER, SELFPAY ==
[2023-06-17 06:08] LABS: Chlamydia By Nucleic Acid AMP Negative (Negative); Gonococcus By Nucleic Acid AMP Negative (Negative)
== END | disposition home or self-care (01) ==
PROVIDERS: PCP Internal Medicine; Referring Provider Obstetrics & Gynecology; Visit Provider Obstetrics & Gynecology
DX: Z34.90 Encounter for supervision of normal pregnancy, unspecified, unspecified trimester (principal); Z3A.00 Weeks of gestation of pregnancy not specified
CPT/HCPCS: 87086; 87491; 87591

== ENCOUNTER → 2023-08-24 | Outpatient (CLI) | payer OTHER, SELFPAY ==
[2023-08-24 16:53] LABS: Absolute Lymphocyte Count 1.54 X10^3/uL (0.83-4.51); Absolute Neutrophil Count 7.7 X10^3/uL (2.0-7.7); Basophil# 0.03 X10^3/uL; Basophil% 0.3 % (0-1); Eosinophil# 0.28 X10^3/uL; Eosinophils% 2.7 % (0-5); Hematocrit 35.5 % (37-47); Hemoglobin 11.7 g/dL (12.0-15.0); Lymphocyte # 1.54 X10^3/ul (0.83-4.51); Lymphocyte % 15.1 % (19-41); Mean Corpuscular Hgb 27.9 pg (27.0-32.0); Mean Corpuscular Volume 84.5 fL (81-99); Mean Platelet Vol. 11.1 fl (6.2-12.0); Monocyte# 0.57 X10^3/uL; Monocyte% 5.6 % (0-10); NRBC Flagged by Analyzer 0 % (0-5); Neutrophil # 7.69 X10^3/uL (2.7-7.7); Neutrophil % 75.2 % (47-70); Platelet Count 200 K/mm3 (150-450); RBC Distribution Width CV 13.5 % (11.6-14.6); RBC Distribution Width SD 41.3 fl (35.1-43.9); White Blood Count 10.2 K/mm3 (4.4-11.0)
[2023-08-24 18:07] LABS: HIV - WCH Non-Reactive (Nonreactive); Hepatitis B Surface Antigen Non-Reactive (Nonreactive); Hepatitis C Antibody Non-Reactive (Nonreactive); Rubella IgG Reactive (Nonreactive); Syphilis Antibodies Non-reactive
== END | disposition home or self-care (01) ==
PROVIDERS: PCP Internal Medicine; Referring Provider Obstetrics & Gynecology; Visit Provider Obstetrics & Gynecology
DX: Z34.90 Encounter for supervision of normal pregnancy, unspecified, unspecified trimester (principal); Z3A.00 Weeks of gestation of pregnancy not specified
CPT/HCPCS: 36415; 85025; 86703; 86762; 86780; 86803; 86850; 86900; 86901; 87340

== ENCOUNTER 2023-10-07 13:20 | Outpatient (CLI) | payer OTHER, SELFPAY ==
[2023-10-07 13:37] VITALS: BP 118/73; PULSE 83
[2023-10-07 13:51] VITALS: BMI 27.6
[2023-10-07 14:25] LABS: Hematocrit 34.8 % (37-47); Mean Corp Hgb Conc 31.6 g/dL (32-36); Mean Corpuscular Hgb 27.6 pg (27.0-32.0); Mean Corpuscular Volume 87.2 fL (81-99); Mean Platelet Vol. 11.1 fl (6.2-12.0); Platelet Count 196 K/mm3 (150-450); RBC Distribution Width CV 13.9 % (11.6-14.6); RBC Distribution Width SD 44.2 fl (35.1-43.9); Red Blood Count 3.99 M/mm3 (4.2-5.4); White Blood Count 11.7 K/mm3 (4.4-11.0)
[2023-10-07 14:29] LABS: Protein, Urine (Random) 15.4 mg/dL (<11.9); Protein:Creat Ratio 101 mg/g CRE (0-200)
[2023-10-07 14:34] LABS: AST(SGOT) 17 U/L (15-37); Alanine Aminotransfer ALT/SGPT 21 U/L (13-56); Creatinine, Serum 0.58 mg/dL (0.55-1.02); EST Glomerular Filtration Rate 135 mL/min (>60); Est Glom Filt Rate - Afr Amer 163 mL/min (>60); Estimated Creatinine Clearance 166.83 ml/min; LDH 160 U/L (84-246); Uric Acid 3.8 mg/dL (2.6-6.0)
--- NOTE | 2023-10-07 14:53 | OB.TRI.PN ---
Progress Notes Date of Service: 10/07/23 Progress Note: labs done for TRINH and rule out labor negative workup dc home Laboratory Studies: Laboratory Tests 10/07/23 10/07/23 Range/Units 14:05 14:05 WBC 11.7 H (4.4-11.0) K/mm3 RBC 3.99 L (4.2-5.4) M/mm3 Hgb 11.0 L (12.0-15.0) g/dL Hct 34.8 L (37-47) % MCV 87.2 (81-99) fL MCH 27.6 (27.0-32.0) pg MCHC 31.6 L (32-36) g/dL RDW Std Deviation 44.2 H (35.1-43.9) fl RDW Coeff of Gulshan 13.9 (11.6-14.6) % Plt Count 196 (150-450) K/mm3 MPV 11.1 (6.2-12.0) fl Creatinine 0.58 (0.55-1.02) mg/dL Estim Creat Clear Calc 166.83 ml/min Est GFR (MDRD) Af Amer 163 (>60) mL/min Est GFR (MDRD) Non-Af 135 (>60) mL/min Uric Acid 3.8 (2.6-6.0) mg/dL AST 17 (15-37) U/L ALT 21 (13-56) U/L Lactate Dehydrogenase Cancelled 160 (84-246) U/L U Random Total Protein 15.4 H (<11.9) mg/dL Urine Creatinine 153.00 (NO RANGE EST.) mg/dL Protein/Creatinin Ratio 101 (0-200) mg/g CRE
[2023-10-07 14:59] VITALS: RESP 16; TEMP 37.4
[2023-10-07 15:00] VITALS: BP 113/66; PULSE 79
== END 2023-10-07 15:05 | disposition home or self-care (01) ==
LOC: WPOUT 13:22 → WP 13:23
PROVIDERS: PCP Internal Medicine; Referring Provider Obstetrics & Gynecology; Visit Provider Obstetrics & Gynecology
DX: O47.9 False labor, unspecified (principal); Z3A.00 Weeks of gestation of pregnancy not specified
CPT/HCPCS: 82565; 82570; 83615; 84156; 84450; 84460; 84550; 85027; 99221; G0378

== ENCOUNTER → 2023-10-19 | Outpatient (CLI) | payer OTHER, SELFPAY ==
[2023-10-19 14:12] LABS: Absolute Lymphocyte Count 1.56 X10^3/uL (0.83-4.51); Basophil# 0.07 X10^3/uL; Basophil% 0.5 % (0-1); Eosinophil# 0.17 X10^3/uL; Eosinophils% 1.3 % (0-5); Hematocrit 34.7 % (37-47); Hemoglobin 11.3 g/dL (12.0-15.0); Lymphocyte # 1.56 X10^3/ul (0.83-4.51); Lymphocyte % 12.2 % (19-41); Mean Corp Hgb Conc 32.6 g/dL (32-36); Mean Corpuscular Hgb 28.2 pg (27.0-32.0); Mean Corpuscular Volume 86.5 fL (81-99); Mean Platelet Vol. 11.2 fl (6.2-12.0); Monocyte# 0.72 X10^3/uL; Monocyte% 5.6 % (0-10); NRBC Flagged by Analyzer 0 % (0-5); Neutrophil % 78.4 % (47-70); Platelet Count 196 K/mm3 (150-450); RBC Distribution Width CV 13.6 % (11.6-14.6); RBC Distribution Width SD 42.6 fl (35.1-43.9); Red Blood Count 4.01 M/mm3 (4.2-5.4); White Blood Count 12.8 K/mm3 (4.4-11.0)
[2023-10-19 15:02] LABS: HIV - WCH Non-Reactive (Nonreactive); Syphilis Antibodies Non-reactive
[2023-10-19 15:41] LABS: Glucose Challenge Gest 1H 50g 99 mg/dL (70-140)
== END | disposition home or self-care (01) ==
LOC: LAB 13:39
PROVIDERS: PCP Internal Medicine; Referring Provider Nurse Practitioner Women's Health; Visit Provider Nurse Practitioner Women's Health
DX: Z34.90 Encounter for supervision of normal pregnancy, unspecified, unspecified trimester (principal); Z3A.00 Weeks of gestation of pregnancy not specified
CPT/HCPCS: 36415; 82950; 85025; 86703; 86780

== ENCOUNTER → 2023-12-27 | Outpatient (CLI) | payer OTHER, SELFPAY ==
[2023-12-27 15:20] LABS: Absolute Lymphocyte Count 1.33 X10^3/uL (0.83-4.51); Absolute Neutrophil Count 8.4 X10^3/uL (2.0-7.7); Basophil# 0.05 X10^3/uL; Basophil% 0.5 % (0-1); Eosinophil# 0.17 X10^3/uL; Eosinophils% 1.6 % (0-5); Hematocrit 36.9 % (37-47); Hemoglobin 11.8 g/dL (12.0-15.0); Lymphocyte # 1.33 X10^3/ul (0.83-4.51); Lymphocyte % 12.5 % (19-41); Mean Corpuscular Hgb 27.6 pg (27.0-32.0); Mean Corpuscular Volume 86.2 fL (81-99); Mean Platelet Vol. 11.9 fl (6.2-12.0); Monocyte# 0.57 X10^3/uL; Monocyte% 5.4 % (0-10); NRBC Flagged by Analyzer 0 % (0-5); Neutrophil # 8.39 X10^3/uL (2.7-7.7); Neutrophil % 78.7 % (47-70); Platelet Count 159 K/mm3 (150-450); RBC Distribution Width CV 13.2 % (11.6-14.6); RBC Distribution Width SD 40.8 fl (35.1-43.9); Red Blood Count 4.28 M/mm3 (4.2-5.4); White Blood Count 10.7 K/mm3 (4.4-11.0)
[2023-12-27 20:30] LABS: ALB/GLOB Ratio 0.7 RATIO (0.9-2.4); AST(SGOT) 22 U/L (15-37); Alanine Aminotransfer ALT/SGPT 22 U/L (13-56); Albumin, Serum 2.8 g/dL (3.2-5.0); Alkaline Phosphatase 117 U/L (45-117); Anion Gap 9 (5-15); BUN 8 mg/dL (7-18); BUN/Creat Ratio 13.8 RATIO (10-20); Calcium,Total 8.9 mg/dL (8.5-10.1); Chloride 107 mmol/L (98-107); Cholesterol 209 mg/dL (200); Creatinine, Serum 0.58 mg/dL (0.55-1.02); EST Glomerular Filtration Rate 134 mL/min (>60); Est Glom Filt Rate - Afr Amer 162 mL/min (>60); Globulin 3.8 g/dL (2.2-4.2); Glucose 108 mg/dL (74-106); High Density Lipoprotein 68 mg/dL; Potassium 3.8 mmol/L (3.5-5.1); Protein, Total 6.6 g/dL (6.4-8.2); Sodium Level 136 mmol/L (136-145); Triglycerides 205 mg/dL; Very Low Density Lipoprotein 41 mg/dL (5-40)
== END | disposition home or self-care (01) ==
LOC: BIMLAB 13:41
PROVIDERS: PCP Internal Medicine; Visit Provider Internal Medicine
DX: Z00.00 Encounter for general adult medical examination without abnormal findings (principal)
CPT/HCPCS: 36415; 80053; 80061; 85025

== ENCOUNTER → 2023-12-31 | Outpatient (CLI) | payer OTHER, SELFPAY ==
[2023-12-31 16:25] LABS: ROM Internal Control Test YES-OK TO RESULT pt. (Internal QC); ROM Patient Test Negative (Negative); Record Kit Lot#, ROM+ K1866
== END | disposition home or self-care (01) ==
PROVIDERS: PCP Internal Medicine; Referring Provider Obstetrics & Gynecology; Visit Provider Obstetrics & Gynecology
DX: O42.90 Premature rupture of membranes, unspecified as to length of time between rupture and onset of labor, unspecified weeks of gestation (principal); Z3A.37 37 weeks gestation of pregnancy
CPT/HCPCS: 84112; 87081

== ENCOUNTER 2024-01-16 18:48 | Inpatient (IN) | payer OTHER, SELFPAY ==
[2024-01-16 19:27] VITALS: PULSE 103; O2SAT 97
[2024-01-16 19:29] VITALS: BP 125/78; PULSE 100; RESP 18; TEMP 37.2
[2024-01-16 19:59] LABS: Absolute Neutrophil Count 7.8 X10^3/uL (2.0-7.7); Basophil# 0.02 X10^3/uL; Basophil% 0.2 % (0-1); Eosinophil# 0.15 X10^3/uL; Eosinophils% 1.5 % (0-5); Hematocrit 36.9 % (37-47); Hemoglobin 12.4 g/dL (12.0-15.0); Lymphocyte % 13.9 % (19-41); Mean Corp Hgb Conc 33.6 g/dL (32-36); Mean Corpuscular Hgb 28.5 pg (27.0-32.0); Mean Corpuscular Volume 84.8 fL (81-99); Mean Platelet Vol. 11.7 fl (6.2-12.0); Monocyte# 0.62 X10^3/uL; Monocyte% 6.2 % (0-10); NRBC Flagged by Analyzer 0 % (0-5); Neutrophil % 77.3 % (47-70); Platelet Count 157 K/mm3 (150-450); RBC Distribution Width CV 13.3 % (11.6-14.6); RBC Distribution Width SD 41.1 fl (35.1-43.9); Red Blood Count 4.35 M/mm3 (4.2-5.4); White Blood Count 10.1 K/mm3 (4.4-11.0)
[2024-01-16] MEDS: miSOPROStol 25 MCG TABLET VAGINAL (20:03)
[2024-01-16 20:11] VITALS: BMI 30.4
[2024-01-16 21:22] LABS: Syphilis Antibodies Non-reactive
[2024-01-16] MEDS: Loratadine 10 MG Tablet PO (22:09)
[2024-01-16] MEDS: Citalopram 40 MG TABLET PO (22:09)
[2024-01-16] MEDS: Magnesium Chloride 64 MG Delay Rel.Tablet PO (22:09)
[2024-01-17] VITALS (67 sets, daily range): BP systolic 95–144; BP diastolic 50–105; PULSE 71–230; RESP 16–18; TEMP 36.2–37; O2SAT 87–100
[2024-01-17] MEDS: miSOPROStol 25 MCG TABLET VAGINAL ×2 (00:07→04:12)
[2024-01-17] MEDS: Mag Hydrox/Al Hydrox/Simeth 30 ML UDC PO (00:16)
[2024-01-17] MEDS: Acetaminophen 500 MG Tablet PO (01:38)
--- NOTE | 2024-01-17 07:44 | HP.PCM.OB_ITS ---
HPI - General General Date of Admission: 01/16/24 Date of Service: 01/17/24 HPI Narrative DANIEL SPAIN, is a 28 F 39.3 weeks who presents to unit last evening for cytotec IOL for IVF Maternal Data Information CONNOR Calculator Estimated Delivery Date Method Current WG Current Estimate 01/21/24 Conception 39w 3d Final CONNOR: 01/21/24 Final CONNOR Source: US >20 weeks Gestational age: 39.3 weeks PFS PFS Medical History (Updated 01/17/24 @ 07:47 by Malika Denise CNM) Endometriosis Dermatitis Upper back pain on left side Neck pain Shoulder pain Heavy menstrual bleeding Abnormal bleeding in menstrual cycle Attention deficit disorder (ADD) in adult Chronic back pain History of cardiac murmur Gluten intolerance Seasonal allergies Depression Anxiety Alcohol use Anxiety and depression Asthma Home Medications ?Medication ?Instructions ?Recorded ?Last Taken ?Type cetirizine 10 mg capsule (Zyrtec) 10 mg PO DAILY allergies 01/18/21 01/15/24 H istory albuterol sulfate 90 mcg/actuation 1 - 2 puff inhalation Q6H PRN 09/12/21 Unknown Rx aerosol inhaler (ProAir HFA) shortness of breath or wheezing #8.5 grams triamcinolone acetonide 0.1 % 1 applic topical BID ezcema #454 09/02/22 01/16/24 Rx topical ointment grams docosahexaenoic acid 200 mg 200 mg PO DAILY 06/08/23 01/15/24 History capsule ( DHA) magnesium 200 mg tablet 200 mg PO DAILY supplement 12/27/23 01/15/24 History citalopram 40 mg tablet 40 mg PO DAILY depression 01/16/24 01/15/24 History docusate sodium 100 mg capsule 100 mg PO DAILY constipation 01/16/24 01/15/24 History (Colace) Allergy/AdvReac Type Severity Reaction Status Date / Time amoxicillin Allergy Intermediate Rash Verified 01/16/24 19:56 wheat Allergy Mild eczema, Verified 01/16/24 19:56 constipation Family History Mother Endometriosis Uterine cyst Breast cancer, Onset Age: 44 In remission Grandfather Alcoholism Colon cancer Father Anxiety Thyroid disorder Heart disease, Onset Age: 50 A. Fib Brother Anxiety Grandmother Arthritis Bowel disease Aunt Cervical cancer Other Depression Hypertension Melanoma Mental disorder Myocardial infarction Surgical History Hx of exploratory laparotomy Hx of wisdom tooth extraction History of appendectomy Social History adopted: No household members: spouse housing: house current occupational status: employed current occupation: [employer] current occupational exposures/hazards: No pets and animals: Yes (2) pets and animals: dog(s) history of recent travel: No sexually active: Yes Smoking Status: Former smoker alcohol intake: current alcohol intake frequency: holidays/special occasions only details: Socially - Not substance use type: does not use and other details: used weed at 20yo diet: gluten free well-balanced diet: daily or most days caffeine: Yes (1 cup of day) Type: coffee eating out: 1-3 times/week during the past year weight has: increased > 10 lbs what type of physical activity do you participate in: walking frequency: 3-4 times per week duration: 15-30 minutes/day seatbelt use: always do you feel safe at home: Yes additional social history: - 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 [employer] History 1 Elective abortions Hx Para 0 Spontaneous abortions Hx # Term Pregnancies Ectopic pregnancies Hx # Pregnancies Multiple births # of living children Visit Details Expected Delivery Route/Plan Labor Preferences- CB/BF classes: encouraged labor support person: Carlos labor intervention preferences: [] pain management options preferred: open to epidural if requested cut cord/dad catch: cord : yes PP control planned: discussed discussed possible routes of delivery and associated risks: [] special requests: [] Plans Covid status: [] Flu vaccine: declined Tdap vaccine: [] Rhogam: NA LARC form signed: yes Problem list reviewed and updated with the most current plan of care details and appropriate orders placed. Relevant counseling for the gestational age provided. Continue routine care and follow up unless otherwise noted in visit notes/problem list details OB Flowsheet Initial Weight: Not Recorded Date -?-?-?-?-?-?-?-?-?-?-?-?- EGA Weight BP Urine Prot -?-?-?-?-?-?-?-?-?-?-?-?- Glucose FHR FuHt Pres Dilation -?-?-?-?-?-?-?-?-?-?-?-?- Effaced St Visit Note 06/14/23 -?-?-?-?-?-?-?-?-?-?-?-?- 8w 3d 163 lb 8 oz 111/79 -?-?-?-?-?-?-?-?-?-?-?-?- 180 -?-?-?-?-?-?-?-?-?-?-?-?- SM- CRL cons wit h IVF, hematoma resolving 07/01/23 -?-?-?-?-?-?-?-?-?-?-?-?- 10w 6d 164 lb 8 oz 112/80 Nega tive -?-?-?-?-?-?-?-?-?-?-?-?- Negative 179 -?-?-?-?-?-?-?-?-?-?-?-?- JV- hematoma is 28mm x 5 mm movement present. heart rate normal. patient reassured. traveling for [employer] and will let us know if she wants NIPT. 07/28/23 -?-?-?-?-?-?-?-?-?-?-?-?- 14w 5d 164 lb 4 oz 115/78 Nega tive -?-?-?-?-?-?-?-?-?-?-?-?- Negative 155 -?-?-?-?-?-?-?-?-?-?-?-?- LC- vb stopped x 1 week. declines nipt. will obtain nob labs. 08/24/23 -?-?-?-?-?-?-?-?-?-?-?-?- 18w 4d 168 lb 117/76 Negative -?-?-?-?-?-?-?-?-?-?-?-?- Negative 150 -?-?-?-?-?-?-?-?-?-?-?-?- SM- no vb crmapi ng afp drawn and NOB labs drawn today 09/20/23 -?-?-?-?-?-?-?-?-?-?-?-?- 22w 3d 177 lb 6 oz 114/72 Nega tive -?-?-?-?-?-?-?-?-?-?-?-?- Negative 143 -?-?-?-?-?-?-?-?-?-?-?-?- MH-No VB. Sahil F M. Has growth US and echo 09/29. Denies concerns 10/19/23 -?-?-?-?-?-?-?-?-?-?-?-?- 26w 4d 184 lb 4 oz 104/70 Nega tive -?-?-?-?-?-?-?-?-?-?-?-?- Negative 138 27 -?-?-?-?-?-?-?-?-?-?-?-?- MH-No VB, LOF. G ood FM. 28 wk labs pending. Has ped cardio f/u sched 10/25. Larc 11/02/23 -?-?-?-?-?-?-?-?-?-?--?-?- 28w 4d 186 lb 117/76 Negative -?-?-?-?-?-?-?-?-?-?-?-?- Negative 140 29 -?-?-?-?-?-?-?-?-?-?-?-?- KW- no vb/lof/cr amping. good fm. echo normal. tdap today. 11/15/23 -?-?-?-?-?-?-?-?-?-?-?-?- 30w 3d 191 lb 6 oz 117/72 Nega tive -?-?-?-?-?-?-?-?-?-?-?-?- Negative 123 31 -?-?-?-?-?-?-?-?-?-?-?-?- JV- no lof, vagi nal bleeding, or dec fm. they are thinking of going on vacation end of november. 11/30/23 -?-?-?-?-?-?-?-?-?-?-?-?- 32w 4d 192 lb 107/72 Negative -?-?-?-?-?-?-?-?-?-?-?-?- Negative 125 33 -?-?-?-?-?-?-?-?-?-?-?-?- KW-no vb/lof/ctx . good fm. no concerns today. 12/17/23 -?-?-?-?-?-?-?-?-?-?-?-?- 35w 0d 195 lb 6 oz 130/85 Nega tive -?-?-?-?-?-?-?-?-?-?-?-?- Negative 125 36 -?-?-?-?-?-?-?-?-?-?-?-?- Sm- no vb lof go od f mno reuglar ctx Sm- no vb lof good f mno reu glar ctx, discussed tech mentioned PD was measuring larger which may make it harder to have a vaginal delivery, patient is wondering if this is relevant, 12/31/23 -?-?-?-?-?-?-?-?-?-?-?-?- 37w 0d 198 lb 6 oz 116/78 Nega tive -?-?-?-?-?-?-?-?-?-?-?-?- Negative 120 36 -?-?-?-?-?-?-?-?-?-?-?-?- JV- JV- Pt complains that she hyde d a gush of fluid. no dec fm or vaginal bleeding ,nst is reactive. GbS collected. cx is closed and posterior. plan for IOL at 39 weeks . set up for 01/16/24 at 7pm (wednesday pm) 01/05/24 -?-?-?-?-?-?-?-?-?-?-?-?- 37w 5d 199 lb 124/83 Negative -?-?-?-?-?-?-?-?-?-?-?-?- Negative 120 39 Cephalic 0 -?-?-?-?-?-?-?-?-?-?-?-?- JV- growth scan from yesterday shows >99th% for head. normal cranial anatomy. NST reactive. is set for iol. pt wants sooner induction but risks discussed. 01/10/24 -?-?-?-?-?-?-?-?-?-?-?-?- 38w 3d 200 lb 129/79 Negative -?-?-?-?-?-?-?-?-?-?-?-?- Negative 140 -?-?-?-?-?-?-?-?-?-?-?-?- SM- IOL schedule d no vb lof good fm NST FHR Rate Baby A Baseline: 130 Variability:: Moderate Accelerations:: 15 x 15 Decelerations:: None NST Reactive:: Yes FHR Category:: Category I Uterine Activity:: 3-7 ROS Constitutional Constitutional: Denies change in weight, fatigue, fever(s), headache(s), poor appetite or weakness Eyes Eyes: Denies blurry vision, change in vision, floaters, seeing flashes or spots in vision ENT HEENT: Denies dizziness, headache(s), loss taste/smell or sore throat Cardiovascular Cardiovascular: Denies chest pain, dizziness, dyspnea, irregular heart rhythm, lightheadedness, palpitations or rapid heart rate Respiratory/Chest Respiratory/Chest: Denies change in mental status, chest tightness, cough, dyspnea or breast pain Gastrointestinal Gastrointestinal: Denies anorexia, chewing difficulty, constipation, diarrhea or weight changes Genitourinary Genitourinary: Denies difficulty urinating, dysuria, flank pain, genital pain, urinary frequency or urinary urgency Musculoskeletal Musculoskeletal: Denies back pain, difficulty walking, extremity pain, joint pain, muscle cramps or muscle weakness Integumentary Integumentary: Denies lesions or unusual bruising Neurologic Neurologic: Denies abnormal movements, abnormal speech, dizziness, numbness, seizure-like activity, syncope or weakness Psychiatric Psychiatric: Denies behavioral changes, change in appetite, confusion, depression, homicidal ideation, suicidal ideation or suicidal thoughts Endocrine Endocrinology: Denies excessive sweating, polydipsia or polyuria Hematologic/Lymphatic Hematologic/Lymphatic: Denies anemia Allergic/Immunologic Allergic/Immunologic: Denies itchy eyes, lip swelling, throat swelling, tongue swelling or wheezing Vital Signs Vital Signs Vital Signs: 01/16/24 19:27 01/16/24 19:27 01/16/24 19:29 Temperature Temperature Source Pulse Rate 103 H Respiratory Rate Blood Pressure 125/78 H BP Systolic 125 BP Diastolic 78 Pulse Ox 97 01/16/24 19:29 01/16/24 19:29 01/16/24 19:29 Temperature Temperature Source Temporal Pulse Rate 100 Respiratory Rate 18 Blood Pressure BP Systolic BP Diastolic Pulse Ox 01/16/24 19:29 01/17/24 00:17 01/17/24 00:17 Temperature 98.9 F Temperature Source Pulse Rate 82 Respiratory Rate Blood Pressure 135/80 H BP Systolic 135 BP Diastolic 80 Pulse Ox 01/17/24 00:17 01/17/24 00:17 01/17/24 00:17 Temperature 98.1 F Temperature Source Temporal Pulse Rate Respiratory Rate 18 Blood Pressure BP Systolic BP Diastolic Pulse Ox 01/17/24 04:19 01/17/24 04:19 01/17/24 04:19 Temperature Temperature Source Temporal Pulse Rate 85 Respiratory Rate Blood Pressure 129/85 H BP Systolic 129 BP Diastolic 85 Pulse Ox 01/17/24 04:19 01/17/24 04:19 01/17/24 04:20 Temperature 98.6 F Temperature Source Pulse Rate 76 Respiratory Rate 18 Blood Pressure BP Systolic BP Diastolic Pulse Ox 01/17/24 04:20 Temperature Temperature Source Pulse Rate Respiratory Rate Blood Pressure BP Systolic BP Diastolic Pulse Ox 98 Weight Weight: 200 lb Body Mass Index (BMI) 30.4 Physical Exam Const alert, oriented x3 and no apparent distress General Appearance: cooperative Orientation / Consciousness: awake HEENT normocephalic Neck full ROM Lymph Lymphatic: no lymphadenopathy noted Chest inspection of chest normal Resp normal respiratory effort and normal air movement Effort and Inspection: able to speak in complete sentences and symmetric chest movement GI soft to palpation and non-tender Inspection: gravid Palpation: soft; Negative for tender external exam normal Back/Spine normal to inspection Extremity normal to inspection and full ROM Skin no rashes or lesions noted Psych mental status grossly normal Appearance: grossly normal Speech: normal speech Labs Labs Labs: Blood Type O POSITIVE Antibody Screen NEGATIVE Hct 36.9 % (37-47) L Hgb 12.4 g/dL (12.0-15.0) Obstetrics Ultrasound Syphilis Total Ab Non-reactive Rubella IgG Antibody Reactive (Nonreactive) Hep Bs Antigen Non-Reactive (Nonreactive) Hepatitis C Antibody Non-Reactive (Nonreactive) Chlamydia DNA (KEVIN) Negative (Negative) N.gonorrhoeae DNA (KEVIN) Negative (Negative) HIV 1&2 Antibody Non-Reactive (Nonreactive) Glucose 1 Hr 50 gm 99 mg/dL (70-140) Miscellaneous Test Assessment & Plan (1) Encounter for induction of labor: PLAN: Patient presents IOL, plan management for with cytotec/cain bulb/pitocin/AROM. Pain management: plans epidural. GBS negative. Management of any complications: none I have reviewed the [facility] and made any clinically relevant updates. Dr Childers aware of and agrees with assessment and plan (2) Abnormal echocardiogram affecting antepartum care of mother: QUALIFIERS: Fetus number: single or unspecified fetus Qualified Code(s): O35.BXX0 - Maternal care for other (suspected) abnormality and damage, cardiac anomalies, not applicable or unspecified COMMENT: Normal echo (3) resulting from in vitro fertilization: QUALIFIERS: Trimester: second trimester Qualified Code(s): O09.812 - Supervision of resulting from assisted reproductive technology, second trimester COMMENT: echo at 22-24 weeks(09/30/23), weekly NSTs after 36 and growth US q 4 weeks per M, delivery by 39, normal anatomy. 11/22/23: 51% EFW and AC 59% 6/6-64% growth (4) Supervision of high-risk : QUALIFIERS: Trimester: second trimester Qualified Code(s): O09.92 - Supervision of high risk , unspecified, second trimester COMMENT: [id number], CONNOR 01/21/24 boy, - Stuart (5) : QUALIFIERS: Weeks of gestation: 37 weeks Qualified Code(s): Z3A.37 - 37 weeks gestation of COMMENT: Neg GBS. normal anatomy, declined genetic/carrier testing, ordered afp/neg (6) Asthma: COMMENT: uses inhaler sparingly (7) Anxiety and depression: Charges/Coding Multi Select Codes Urinary/Genital Urinary/Genital CPT Codes: No Charge
[2024-01-17] MEDS: 0.9% Normal Saline Single 100 ML IV.SOLN. INTRA-UTER (08:30)
--- NOTE | 2024-01-17 08:30 | PN_ITS ---
Progress Note Coping well with contractions current tracing: FHT: 130 Moderate variability reactive no decelerations category I tracing [place]: 3-4 minute Contractions Membranes:intact SVE:2/70/-1 Donnelly bulb placed. Ok for light breakfast then start pitocin. A/P: Continue with position changes Start pitocin per protocol Epidural per anesthesia GBS neg Anticipate Dr Childers aware of above assessment and agrees with plan of care Assessment & Plan Assessment/Plan (1) Encounter for induction of labor: (2) Abnormal echocardiogram affecting antepartum care of mother: QUALIFIERS: Fetus number: single or unspecified fetus Qualified Code(s): O35.BXX0 - Maternal care for other (suspected) abnormality and damage, cardiac anomalies, not applicable or unspecified (3) resulting from in vitro fertilization: QUALIFIERS: Trimester: second trimester Qualified Code(s): O09.812 - Supervision of resulting from assisted reproductive technology, second trimester (4) Supervision of high-risk : QUALIFIERS: Trimester: second trimester Qualified Code(s): O09.92 - Supervision of high risk , unspecified, second trimester (5) : QUALIFIERS: Weeks of gestation: 37 weeks Qualified Code(s): Z3A.37 - 37 weeks gestation of (6) Asthma: (7) Anxiety and depression: Multi Select Codes Urinary/Genital Urinary/Genital CPT Codes: No Charge
[2024-01-17] MEDS: Ondansetron 4 MG/2 ML Vial IV ×3 (08:50→19:20)
[2024-01-17] MEDS: Lactated Ringers 1,000 ML 200 ML IV ×3 (08:50→22:07)
[2024-01-17] MEDS: LACTATED RINGERS 500 ML 999 ML IV (11:42)
[2024-01-17] MEDS: fentaNYL-bupivacaine (epidural) 100 ML BAG EPIDURAL ×2 (12:53→18:12)
--- NOTE | 2024-01-17 13:11 | PN_ITS ---
Progress Note comfortable with epidural current tracing: FHT: 130 Moderate variability reactive no decelerations category I tracing [place]: 2-3 Contractions Membranes: AROM clear SVE:7/80/-1 A/P: Continue with position changes Titrate pitocin per protocol Epidural per anesthesia PCN for GBS prophylaxis Anticipate Dr Childers aware of above assessment and agrees with plan of care Assessment & Plan Assessment/Plan (1) Encounter for induction of labor: (2) Abnormal echocardiogram affecting antepartum care of mother: QUALIFIERS: Fetus number: single or unspecified fetus Qualified Code(s): O35.BXX0 - Maternal care for other (suspected) abnormality and damage, cardiac anomalies, not applicable or unspecified (3) resulting from in vitro fertilization: QUALIFIERS: Trimester: second trimester Qualified Code(s): O09.812 - Supervision of resulting from assisted reproductive technology, second trimester (4) Supervision of high-risk : QUALIFIERS: Trimester: second trimester Qualified Code(s): O09.92 - Supervision of high risk , unspecified, second trimester (5) : QUALIFIERS: Weeks of gestation: 37 weeks Qualified Code(s): Z3A.37 - 37 weeks gestation of (6) Asthma: (7) Anxiety and depression: Multi Select Codes Urinary/Genital Urinary/Genital CPT Codes: No Charge
[2024-01-17] MEDS: Oxytocin 15 Units/NS 250ml 15 UNITS/250 ML IV.SOLN 2 UNITS IV (15:45)
--- NOTE | 2024-01-17 17:52 | PCM.PN.BLA ---
Progress Note comfortable with epidural current tracing: FHT: 130 Moderate variability reactive occasional variables decelerations category II tracing [place]: 3-5 Contractions Membranes:remains clear SVE:8/-1 A/P: Continue with position changes Titrate pitocin per protocol Epidural per anesthesia GBS neg Anticipate Dr Childers aware of above assessment and agrees with plan of care Assessment & Plan Assessment/Plan (1) Encounter for induction of labor: (2) Abnormal echocardiogram affecting antepartum care of mother: QUALIFIERS: Fetus number: single or unspecified fetus Qualified Code(s): O35.BXX0 - Maternal care for other (suspected) abnormality and damage, cardiac anomalies, not applicable or unspecified (3) resulting from in vitro fertilization: QUALIFIERS: Trimester: second trimester Qualified Code(s): O09.812 - Supervision of resulting from assisted reproductive technology, second trimester (4) Supervision of high-risk : QUALIFIERS: Trimester: second trimester Qualified Code(s): O09.92 - Supervision of high risk , unspecified, second trimester (5) : QUALIFIERS: Weeks of gestation: 37 weeks Qualified Code(s): Z3A.37 - 37 weeks gestation of (6) Asthma: (7) Anxiety and depression: Multi Select Codes Urinary/Genital Urinary/Genital CPT Codes: No Charge
--- NOTE | 2024-01-17 20:01 | PCM.PN.BLA ---
Progress Note comfortable with epidural current tracing: FHT: 145 Moderate variability reactive variable decelerations with pushing, category II tracing [place]: 4-5 minute Contractions Membranes: remains clear SVE:complete and pushing A/P: Continue with position changes Titrate pitocin per protocol Epidural per anesthesia GBS neg Anticipate vs PC/S Dr Childers aware of above assessment and agrees with plan of care Assessment & Plan Assessment/Plan (1) Encounter for induction of labor: (2) Abnormal echocardiogram affecting antepartum care of mother: QUALIFIERS: Fetus number: single or unspecified fetus Qualified Code(s): O35.BXX0 - Maternal care for other (suspected) abnormality and damage, cardiac anomalies, not applicable or unspecified (3) resulting from in vitro fertilization: QUALIFIERS: Trimester: second trimester Qualified Code(s): O09.812 - Supervision of resulting from assisted reproductive technology, second trimester (4) Supervision of high-risk : QUALIFIERS: Trimester: second trimester Qualified Code(s): O09.92 - Supervision of high risk , unspecified, second trimester (5) : QUALIFIERS: Weeks of gestation: 37 weeks Qualified Code(s): Z3A.37 - 37 weeks gestation of (6) Asthma: (7) Anxiety and depression: Multi Select Codes Urinary/Genital Urinary/Genital CPT Codes: No Charge
--- NOTE | 2024-01-17 22:21 | PN_ITS ---
Progress Note not comfortable with epidural- anesthesia in to re dose current tracing: FHT: 145 Moderate variability with periods of minimal, reactive continued variable decelerations category II tracing [place]: 6-7 Contractions Membranes: remains clear SVE:pushing reviewed tracing abnormalities since last note: collaboration with Dr Tang throughout pushing for Cat II FHT tracing. patient requesting kiwi vs P C/S at this time. A/P: Continue with position changes Titrate pitocin per protocol Epidural per anesthesia GBS neg Anticipate Dr Childers aware of above assessment and agrees with plan of care Multi Select Codes Urinary/Genital Urinary/Genital CPT Codes: No Charge
[2024-01-17] MEDS: Lidocaine 1% (20 ml mdv) 20 ML Vial INFILT (22:46)
--- NOTE | 2024-01-17 23:05 | OP.PCM_ITS ---
Assessment & Plan (1) Vaginal delivery: COMMENT: MARGRET MAYERS 39.1 IOL IVF (2) Encounter for induction of labor: (3) Abnormal echocardiogram affecting antepartum care of mother: QUALIFIERS: Fetus number: single or unspecified fetus Qualified Code(s): O35.BXX0 - Maternal care for other (suspected) abnormality and damage, cardiac anomalies, not applicable or unspecified COMMENT: Normal echo (4) resulting from in vitro fertilization: QUALIFIERS: Trimester: second trimester Qualified Code(s): O09.812 - Supervision of resulting from assisted reproductive technology, second trimester COMMENT: echo at 22-24 weeks(09/30/23), weekly NSTs after 36 and growth US q 4 weeks per MFM, delivery by 39, normal anatomy. 11/22/23: 51% EFW and AC 59% 6/6-64% growth (5) Supervision of high-risk : QUALIFIERS: Trimester: second trimester Qualified Code(s): O09.92 - Supervision of high risk , unspecified, second trimester COMMENT: [id number], CONNOR 01/21/24 boy, - [place] (6) : QUALIFIERS: Weeks of gestation: 37 weeks Qualified Code(s): Z3A.37 - 37 weeks gestation of COMMENT: Neg GBS. normal anatomy, declined genetic/carrier testing, ordered afp/neg (7) Asthma: COMMENT: uses inhaler sparingly (8) Anxiety and depression: Maternal Data Information CONNOR Calculator Estimated Delivery Date Method Current WG Current Estimate 01/21/24 Conception 39w 3d Final CONNOR: 01/21/24 Gestational age: 39 weeks 3 days Doctor Who Attended Delivery: Zurdo Degroot Vaginal Delivery Operative Information Date of Procedure: 01/17/24 Pre-Operative Diagnosis: IVF , 39 weeks 3 days, maternal exhaustion Post-Operative Diagnosis: IVF , 39 weeks 3 days, maternal exhaustion Surgery / Procedure Performed: Vacuum Assisted Vaginal Delivery Type of Anesthesia: Epidural Drain: Donnelly to straight drain Estimated Blood Loss: 200cc Time of Delivery: 22:37 Findings Description of Procedure: Details of delivery: This is a 26 year old woman who was admitted to labor and delivery for IOL due to IVF at 39 weeks. The decision was made to perform a vacuum extraction due to persistent variable decelerations for 2 hours with minimal variability at times and maternal exhaustion. The risk benefits and alternatives of the procedure were discussed with the patient and verbal consent was obtained. The was noted to be at a +2 station, the cervix was completely dilated. The infant's head was noted to be in the right occiput anterior presentation. The vacuum was placed in the correct placement in front of the posterior fontanelle. This was confirmed digitally. With the patient's next contraction, the vacuum was inflated and a gentle downward pressure was used to assist with bringing the baby's head to a +3 station. With 3 pull and 2 pop offs. The head was delivered atraumatically. No nuchal cord was noted. The anterior shoulder followed by the posterior shoulder were delivered without difficulty. The was handed off to the patient's chest. The infant was found to be vigorous and crying and moving of all 4 extremities. The mouth and nares were bulb suctioned. After 60 second delay the cord was clamped and cut and the infant was handed off to the awaiting nurses for routine assessment. The placenta was delivered with gentle traction and uterine massage. Inspection of the vagina cervix and perineum was performed. There were no lacerations to the vagina or to the cervix. The peritoneum was found to have a 2nd degree perineal laceration. The perineal laceration was closed using a 2-0 Vicryl in the usual sterile fashion. The patient tolerated the procedure well sponge lap and needle counts were correct x2 and she is now recovering in stable condition. Presentation: Vertex Amniotic Membrane Rupture Type: Artificial Amniotic Fluid Description: Moderate meconium Placental Delivery Description: Spontaneous Placenta Disposition: [facility] Cord Vessel Description: 3 Vessels Cord Entanglement: None Cord Gases: ABG and VBG A Gender: Male (1 minute): 8 (5 minute): 9 Delayed Cord Clamping: Yes Post Vaginal Delivery Medications Given After Delivery: IV Pitocin Episiotomy Description: None Laceration: 2nd degree Complication Complications: None Multi Select Codes Urinary/Genital Urinary/Genital CPT Codes: 58552 Vaginal Delivery [facility]
[2024-01-17] MEDS: Oxytocin 15 Units/NS 250ml 15 UNITS/250 ML IV.SOLN 83 UNITS IV (23:15)
--- NOTE | 2024-01-17 23:15 | DCINST_ITS ---
Discharge Instructions Diet Discharge Diet: No restrictions Activity Discharge Activity: Return to Normal Activity, May Not Drive (while taking narcotic pain medications.) and May Shower May resume sexual activity in: 4-6 weeks Dressing / Incision Call your doctor if your incision/area has: Continuous Slow Oozing, Sudden Increased Bleeding, Increased Pain/ Swelling, Increased Redness and Foul Smelling Discharge Follow Up Care Please Follow Up With: Lydia Tang, When: Call [phone] to make an appointment with your doctor in 6 weeks. If you had elevated blood pressure or 4th degree laceration, you will need to be seen in 2 weeks. Test Results: Test results from this visit will be discussed in further detail at your follow- up appointment, if applicable. Discharge Plan Admission Admit Date/Time: 01/16/24 18:48 Attending Provider: Lydia Tang Primary Care Provider: Ivory German Discharge Orders/Prescriptions Prescriptions: No Action Zyrtec 10 mg capsule 10 mg PO DAILY magnesium 200 mg tablet 200 mg PO DAILY DHA 200 mg capsule 200 mg PO DAILY docusate sodium [Colace] 100 mg capsule 100 mg PO DAILY citalopram 40 mg tablet 40 mg PO DAILY Rx Instructions: take 1 tablet by mouth once daily albuterol sulfate [ProAir HFA] 90 mcg/actuation HFA aerosol inhaler 1 - 2 puff inhalation Q6H PRN (Reason: shortness of breath or wheezing) Qty: 8.5 1RF triamcinolone acetonide 0.1 % ointment 1 applic topical BID Qty: 454 2RF Referrals / Follow Up: Ivory German MD [Primary Care Provider] -
[2024-01-18] VITALS (10 sets, daily range): BP systolic 109–148; BP diastolic 69–85; PULSE 86–112; RESP 16; TEMP 36.4–36.9; O2SAT 97–99
[2024-01-18] MEDS: Naproxen 500 MG Tablet PO ×2 (08:25→17:26)
--- NOTE | 2024-01-18 13:12 | PCM.PN.OB ---
Subjective Subjective Patient doing well without complaints. Tolerating PO. Ambulating and voiding without difficulty. Feeding well. Denies chest pain, shortness of breath, calf pain/swelling, fevers, chills, lightheadedness. Objective Data Objective Data Vital Signs: Vital Signs Temp Pulse Resp BP Pulse Ox O2 Del Method 97.5 F L 99 16 117/80 99 Room Air 01/18/24 12:15 01/18/24 12:15 01/18/24 12:15 01/18/24 12:15 01/18/24 12:15 01/18/24 03:39 Oxygen Delivery Method Room Air Weight: 200 lb Body Mass Index (BMI) 30.4 Intake & Output: Intake and Output for Last 24 Hours 01/16/24 01/17/24 01/18/24 23:59 23:59 23:59 Intake Total 3490.00 / 3490.00 250 / 250 Output Total 1600 / 1600 300 / 300 Balance 1890.00 / 1890.00 -50 / -50 Lab / Micro Data 01/16/24 19:40 Physical Exam Const alert and oriented x3 HEENT normocephalic Eyes PERRL Neck full ROM Resp normal respiratory effort GI soft to palpation GI Narrative: FF below U Assessment & Plan (1) Vaginal delivery: COMMENT: MARGRET MAYERS 39.1 IOL IVF PLAN: Plan s/p PPD # 1 1. routine post delivery care 2. breast feeding- support given 3. rh positive 4. rubella immune
[2024-01-18] MEDS: Acetaminophen 500 MG Tablet 1000 MG PO (13:54)
[2024-01-18] MEDS: oxyCODONE 5 MG Tablet PO ×3 (14:22→23:46)
--- NOTE | 2024-01-18 14:50 | CASEMGMT ---
Social Work Two attempts to speak with pt, but unsuccessful. SW will continue to attempt to assess prior to DC. Itzel Sanchez, [employer]
[2024-01-18] MEDS: Citalopram 40 MG TABLET PO (22:47)
[2024-01-19 03:04] VITALS: BP 103/60; PULSE 83; RESP 16; TEMP 36.6; O2SAT 98
[2024-01-19] MEDS: Naproxen 500 MG Tablet PO ×2 (04:50→13:45)
[2024-01-19 08:09] VITALS: BP 122/84; PULSE 91; RESP 16; TEMP 36.6; O2SAT 95
--- NOTE | 2024-01-19 08:13 | PCM.PN.OB ---
Subjective Subjective Patient doing well without complaints. Tolerating PO. Ambulating and voiding without difficulty. feeding well. Denies chest pain, shortness of breath, calf pain/swelling, fevers, chills, lightheadedness. Objective Data Objective Data Vital Signs: Vital Signs Temp Pulse Resp BP Pulse Ox O2 Del Method 98 F 91 16 122/84 H 95 Room Air 01/19/24 08:09 01/19/24 08:09 01/19/24 08:09 01/19/24 08:09 01/19/24 08:09 01/19/24 08:09 Oxygen Delivery Method Room Air Weight: 200 lb Body Mass Index (BMI) 30.4 Intake & Output: Intake and Output for Last 24 Hours 01/17/24 01/18/24 01/19/24 23:59 23:59 23:59 Intake Total 3490.00 / 3490.00 250 / 250 Output Total 1600 / 1600 300 / 300 Balance 1890.00 / 1890.00 -50 / -50 Lab / Micro Data 01/16/24 19:40 ROS Constitutional Constitutional: Reports systems reviewed and no addt'l complaints, except as documented Cardiovascular Cardiovascular: Reports systems reviewed and no addt'l complaints, except as documented Respiratory/Chest Respiratory/Chest: Reports systems reviewed and no addt'l complaints, except as documented Gastrointestinal Gastrointestinal: Reports systems reviewed and no addt'l complaints, except as documented Physical Exam Const alert, oriented x3 and no apparent distress HEENT Head and Scalp: atraumatic Resp normal respiratory effort GI soft to palpation and non-tender Bimanual Exam - Vag & Uterus: uterus non-tender Uterus Palpation: uterus fundus firm (below Umbilicus) Assessment & Plan (1) Vaginal delivery: COMMENT: MARGRET MAYERS 39.1 IOL IVF PLAN: Plan s/p PPD # 2 1. routine post delivery care 2. breast feeding- support given 3. rh positive 4. rubella immune
[2024-01-19] MEDS: Senna/Docusate Sodium 1 Tablet PO (08:26)
[2024-01-19] MEDS: oxyCODONE 5 MG Tablet PO (08:26)
[2024-01-19] MEDS: Acetaminophen 500 MG Tablet 1000 MG PO (08:26)
[2024-01-19 13:39] VITALS: BP 119/79; PULSE 89; RESP 16; TEMP 36.7; O2SAT 98
[2024-01-19 14:58] VITALS: RESP 14
== END 2024-01-19 14:50 | disposition home or self-care (01) | DRG 807 ==
PROVIDERS: Registered Nurse; Admitting Provider Obstetrics & Gynecology; PCP Internal Medicine; Visit Provider Obstetrics & Gynecology
DX: O76 Abnormality in fetal heart rate and rhythm complicating labor and delivery (principal); Z37.0 Single live birth; O99.344 Other mental disorders complicating childbirth; F32.A Depression, unspecified; J45.909 Unspecified asthma, uncomplicated; F41.9 Anxiety disorder, unspecified; O75.81 Maternal exhaustion complicating labor and delivery; O70.1 Second degree perineal laceration during delivery; Z87.891 Personal history of nicotine dependence; O99.52 Diseases of the respiratory system complicating childbirth; O77.0 Labor and delivery complicated by meconium in amniotic fluid; Z3A.39 39 weeks gestation of pregnancy; O35.BXX0 Maternal care for other (suspected) fetal abnormality and damage, fetal cardiac anomalies, not applicable or unspecified
CPT/HCPCS: 59025; 59050; 85025; 86780; 86850; 86900; 86901; 99221; J7120; G0378; J2405

== ENCOUNTER → 2024-01-26 | Outpatient (CLI) | payer OTHER, SELFPAY | END | disposition home or self-care (01) | LOC: LABSPEC 15:10 | PROVIDERS: PCP Internal Medicine; Referring Provider Nurse Practitioner Women's Health; Visit Provider Nurse Practitioner Women's Health | DX: O70.1 Second degree perineal laceration during delivery (principal); Z3A.00 Weeks of gestation of pregnancy not specified | CPT/HCPCS: 87070; 87075; 87077; 87186; 87205 ==

== ENCOUNTER → 2025-03-08 | Outpatient (CLI) | payer OTHER, SELFPAY ==
--- OUTSIDE RECORDS SUMMARY | 2025-03-08 17:56 | XMS RPT_ITS | CCD ---
Author Organization [facility] Care Team Providers Care Slurry Man Name Role Phone Care Physician, No Primary Referring Provider Un available Dr. Pablito German Primary Care Provider 1(33 [phone]) Dr. Pablito German Attending Provider [phone] Dr. Yojana Roe Attending Provider 1(330 ) Dr. Pablito German Referring Provider [phone])2 Dr. Pablito German Primary Care Provider 1(33 0) Dr. Pablito German Referring Provider [phone])2 Prerna COFFEE BAR ATTENDANT, COFFEE BAR ATTENDANT-C Anastacio Attending Provider 1(330) DALE Moody Attending Provider [phone] Dr. Pablito German Primary Care Provider 1(33 0) Dr. Pablito German Referring Provider [phone] Dr. Yojana Roe Attending Provider [phone] Dr. Pablito German Attending Provider [phone])2 Christopher COFFEE BAR ATTENDANT, COFFEE BAR ATTENDANTBenson Murphy Attending Provider Dr. Pablito German Primary Care Provider 1(33 0) Dr. Pablito German Referring Provider [phone])2 DALE Moody Attending Provider Dr. Pablito German Primary Care Provider 1(33 0) MARINA Dolan Attending Provider Unavailab le Dr. Pablito German Referring Provider [phone] Dr. Yojana Roe Attending Provider 1(330 ) SONNY Dolan Attending Provider Unavailabl e Devaughn Mckinney, Dr. Freeman Attending Provider 1(3 30) MP New Attending Provider [phone] Dr. Pablito German Primary Care Provider 1(33 0) Maxi, Dr. Dodson Referring Provider [phone])2 Dr. Yojana Roe Attending Provider 1(330 ) Dr. Lydia Tang Attending Provider [phone] New Attending Provider [phone] Annalisa COFFEE BAR ATTENDANT, COFFEE BAR ATTENDANT-C Isidra Attending Provider 1(330 ) Dr. Yojana Roe Referring Provider 1(330 ) Dr. Yojana Roe Other Provider [phone] Dr. Pablito German Primary Care Provider 1(33 0) Maxi, Dr. Dodson Referring Provider [phone])2 Dr. Yojana Roe Attending Provider 1(330 ) OLEGHE, EFEWONGBE B Primary Care Unavailable LYDIA MCDONOUGH R Referring Unavailab le OCONNELL, WALDO F Attending Unavailable OLEGHE, EFEWONGBE B Primary Care Unavailable LYDIA MCDONOUGH R Referring Unavailab LYDIA Cruz L Attending Unavailable DEV, WASNICOLE Attending Unavailable JONATAN SWENSON Referring Unavailable OLEGHE, EFEWONGBE B Primary Care Unavailable YOJANA ROE Referring Unavailabl e OCONNELL, WALDO F Attending Unavailable OLEGHE, EFEWONGBE B Primary Care Unavailable YOJANA ROE Referring Unavailabl e JONATAN SWENSON A Attending Unavailable OLEGHE, EFEWONGBE B Primary Care Unavailable YOJANA ROE Referring Unavailabl e OCONNELL, WALDO F Attending Unavailable MAXI, EFEWONGBE B Primary Care Unavailable Maxi ARENAS, Dr. Dodson Primary Care Provider Maxi ARENAS, Dr. Dodson Attending Provider [phone] Maxi ARENAS, Dr. Dodson Referring Provider [phone] Oleghe, Efewongbe Primary Care Unavailable Malika Denise Attending Unavailable Oleghe, Efewongbe Referring Unavailable Oleghe, Efewongbe Primary Care Unavailable Oleghe, Efewongbe Attending Unavailable Oleghe, Efewongbe Referring Unavailable Malika Denise Attending Unavailable Oleghe, Efewongbe Primary Care Unavailable Oleghe, Efewongbe Referring Unavailable Oleghe, Efewongbe Primary Care Unavailable Malika Denise Attending Unavailable Oleghe, Efewongbe Referring Unavailable Oleghe, Efewongbe Primary Care Unavailable Gaurav Monae Attending Unavailable Oleghe, Efewongbe Referring Unavailable Malika Denise CNM Attending Provider Allergies Allergy Classification Reported Allergen(s) Allergy Type Date of Onset Reaction(s) Facility (13 sources) Amoxicillin; Translations: [AMOXICILLIN] Drug Allergy 1 Rash [facility] (10 sources) Wheat preparation Drug Allergy 2 eczema, constipation [facility] (1 source) Amoxicillin Drug Allergy 5 [facility] (1 source) Wheat preparation Drug Allergy 4 [facility] Medications Current Medications Medication Drug Class(es) Dates Sig (Normalized) Sig (Original) Albuterol Sulfate (20 sources) beta2-Adrenergic Agonist Start: 09-12-2021 take 1 puff(s) by inhalation every six hours Albuterol Sulfate (Proair Hfa) 90 mcg/actuation HFA aerosol inhaler Active 1 - 2 PUFF INHALATION EVERY 6 HOURS 8.5 September 12, 2021 8:53am Start: 09-12-2021 End: 02-23-2025 Albuterol Sulfate (Proair Hf a) 90 mcg/actuation HFA aerosol inhaler Discontinued 1 - 2 NMA INHALATION EVERY 6 HOURS as needed for shortness of breath or wheezing 8.5 1 September 12, 2021 1:00am February 23, 2025 7:45am Start: 09-12-2021 take 1 puff(s) by in halation every six hours Albuterol Sulfate (Proair Hfa) 90 mcg/actuation HFA aerosol inhaler Active 1 - 2 PUFF INHALATION EVERY 6 HOURS 8.5 September 12, 2021 1:00am Start: 09-11-2021 End: 12-25-2022 take 90 ug by inhalation every six hours Albuterol Discontinued 90 MCG INHALATION EVERY 6 HOURS September 11, 2021 5:58pm December 25, 2022 12:24pm Start: 09-11-2021 End: 12-25-2022 take 90 ug by inhalation every six hours Albuterol Discontinued 90 MCG INHALATION EVERY 6 HOURS September 11, 2021 6:58pm December 25, 2022 1:24pm Start: 09-11-2021 take 90 ug by inhala tion every six hours Albuterol Active 90 MCG INHALATION EVERY 6 HOURS September 11, 2021 6:58pm Start: 04-22-2021 End: 09-11-2021 Albuterol Discontinued 90 MC G INHALATION NEEDED April 22, 2021 1:43pm September 11, 2021 6:59pm Start: 04-22-2021 End: 09-11-2021 Albuterol Discontinued 90 MC G INHALATION NEEDED April 21, 2021 11:00pm September 11, 2021 5:59pm Start: 04-22-2021 End: 09-11-2021 Albuterol Discontinued 90 MC G INHALATION NEEDED April 22, 2021 12:00am September 11, 2021 6:59pm Ascorbic Acid (12 sources) Vitamin C Start: 09-11-2021 take 1 g by mouth once daily Ascorbic Acid (Vitamin C) Active 1 GM PO DAILY September 11, 2021 6:55pm Start: 09-11-2021 End: 03-30-2022 take 1 g by mouth once daily Ascorbic Acid (Vitamin C) 1,000 mg tablet Discontinued 1 g PO DAILY September 11, 2021 1:00am March 30, 2022 2:43pm Start: 09-11-2021 End: 03-30-2022 take 1 g by mouth once daily Ascorbic Acid (Vitamin C) Discontinued 1 GM PO DAILY September 11, 2021 12:00am March 30, 2022 1:43pm Start: 09-11-2021 End: 03-30-2022 take 1 g by mouth once daily Ascorbic Acid (Vitamin C) Discontinued 1 GM PO DAILY September 11, 2021 1:00am March 30, 2022 2:43pm cetirizine hydrochloride 10 mg oral capsule (12 sources) Histamine-1 Receptor Antagonist Start: 01-18-2021 take 1 capsule by mouth once daily Cetirizine (Zyrtec) 10 mg capsule Active 10 mg PO DAILY January 18, 2021 12:00am allergies collagen peptides (12 sources) Start: 09-11-2021 collagen peptides Active PO September 11, 2021 6:56pm Start: 09-11-2021 End: 03-30-2022 collagen peptides Discontinu ed PO 0 September 11, 2021 1:00am March 30, 2022 2:43pm Start: 09-11-2021 End: 03-30-2022 collagen peptides Discontinu ed PO September 11, 2021 12:00am March 30, 2022 1:43pm Start: 09-11-2021 End: 03-30-2022 collagen peptides Discontinu ed PO September 11, 2021 1:00am March 30, 2022 2:43pm Cranberry (20 sources) Non-Standardized Food Allergenic Extract, Non-Standardized Plant Allergenic Extract Start: 09-11-2021 take 500 mg by mouth once daily at mealtime Cranberry Active 500 MG PO DAILY September 11, 2021 6:55pm administer with meals Start: 09-11-2021 End: 03-30-2022 take 1 capsule by mouth once daily at mealtime Cranberry 500 mg capsule Discontinued 500 mg PO DAILY September 11, 2021 1:00am March 30, 2022 2:43pm administer with meals Start: 09-11-2021 End: 03-30-2022 take 500 mg by mouth once daily at mealtime Cranberry Discontinued 500 MG PO DAILY September 11, 2021 12:00am March 30, 2022 1:43pm administer with meals Start: 09-11-2021 End: 03-30-2022 take 500 mg by mouth once daily at mealtime Cranberry Discontinued 500 MG PO DAILY September 11, 2021 1:00am March 30, 2022 2:43pm administer with meals Start: 04-22-2021 End: 09-11-2021 take 1000 mg by mouth once daily Cranberry Discontinue d 1000 MG PO DAILY April 22, 2021 1:43pm September 11, 2021 6:55pm Start: 04-22-2021 End: 09-11-2021 take 1000 mg by mouth once daily Cranberry Discontinue d 1000 MG PO DAILY April 21, 2021 11:00pm September 11, 2021 5:55pm Start: 04-22-2021 End: 09-11-2021 take 1000 mg by mouth once daily Cranberry Discontinue d 1000 MG PO DAILY April 22, 2021 12:00am September 11, 2021 6:55pm Start: 01-18-2021 End: 04-22-2021 take 400 mg by mouth once daily Cranberry Discontinued 400 MG PO DAILY January 18, 2021 11:25am April 22, 2021 12:52pm administer with a meal Start: 01-18-2021 End: 04-22-2021 take 1 capsule by mouth once daily Cranberry Fruit 400 mg capsule Discontinued 400 mg PO DAILY January 18, 2021 12:00am April 22, 2021 12:52pm administer with a meal Start: 01-18-2021 End: 04-22-2021 take 400 mg by mouth once daily Cranberry Discontinued 400 MG PO DAILY January 17, 2021 11:00pm April 22, 2021 11:52am administer with a meal Start: 01-18-2021 End: 04-22-2021 take 400 mg by mouth once daily Cranberry Discontinued 400 MG PO DAILY January 18, 2021 12:00am April 22, 2021 12:52pm administer with a meal meloxicam 15 mg oral tablet (12 sources) Nonsteroidal Anti-inflammatory Drug Start: 02-23-2025 take 1 tablet by mouth once daily Meloxicam 15 mg tablet Active 15 mg PO daily 30 February 23, 2025 12:00am Start: 10-21-2022 End: 11-29-2022 take 1 tablet by mouth once daily as needed for pain Meloxicam 15 mg tablet Discontinued 15 mg PO DAILY as needed for pain 90 October 21, 2022 12:00am November 29, 2022 10:56am Completed/Discontinued Medications Medication Drug Class(es) Dates Sig (Normalized) Sig (Original) acetaminophen 325 mg / oxyCODONE hydrochloride 5 mg oral tablet (14 sources) Opioid Agonist Start: 01-19-2024 End: 03-23-2024 Oxycodone-Acetaminop hen (Endocet) 5-325 mg tablet Discontinued 1 {tbl} PO Q4H as needed for pain 20 7 0 January 19, 2024 March 23, 2024 1:49pm Vaginal delivery Encounter for full-term uncomplicated delivery Start: 04-29-2021 End: 05-19-2021 Oxycodone-Acetaminophen (End ocet) 5-325 mg tablet Discontinued 1 {tbl} PO Q4H as needed for pain 20 7 0 April 29, 2021 May 19, 2021 3:40pm Pain in pelvis Pelvic and perineal pain Albuterol 90 mcg/actuation Aerosol (2 sources) Start: 04-22-2021 End: 09-11-2021 Albuterol 90 mcg/actuation Aerosol Discontinued 90 ug INHALATION NEEDED as needed for ASTHMA April 22, 2021 12:00am September 11, 2021 6:59pm Albuterol 90 mcg/actuation aerosol (2 sources) Start: 09-11-2021 End: 12-25-2022 take 90 ug by inhalation every six hours as needed Albuterol 90 mcg/actuation aerosol Discontinued 90 ug INHALATION EVERY 6 HOURS as needed for ASTHMA September 11, 2021 6:58pm December 25, 2022 1:24pm amoxicillin 875 mg / clavulanate 125 mg oral tablet (12 sources) Penicillin-class Antibacterial Start: 01-18-2021 End: 02-17-2021 Amoxicillin-Pot Clavulanate (Augmentin) 875-125 mg tablet Discontinued 1 {tbl} PO TWICE A DAY 20 0 January 18, 2021 12:00am February 17, 2021 1:41pm apple cider vinegar 500 mg oral tablet (12 sources) Start: 09-11-2021 End: 03-30-2022 Apple Cider Vinegar 500 mg tablet Discontinued mg PO September 11, 2021 1:00am March 30, 2022 2:43pm Start: 09-11-2021 End: 03-30-2022 Apple Cider Vinegar Disconti nued MG PO September 11, 2021 1:00am March 30, 2022 2:43pm azithromycin 250 mg oral tablet (9 sources) Macrolide Antimicrobial Start: 11-29-2022 End: 12-25-2022 Azithromycin (Zithromax Z-Zachary) 250 mg tablet Discontinued 0 PO .COMPLEX 6 0 November 29, 2022 12:00am December 25, 2022 1:24pm For 250 mg dose pack: take 500 mg today (day 1), then 250 mg for 4 days (days 2-5) PO biotin 10 mg oral capsule (12 sources) Start: 09-11-2021 End: 03-30-2022 Biotin (Rich Biotin) 10,000 mcg capsule Discontinued ug PO September 11, 2021 1:00am March 30, 2022 2:43pm Start: 09-11-2021 End: 03-30-2022 Biotin (Rich Biotin) 10,000 mcg capsule Discontinued MCG PO September 11, 2021 1:00am March 30, 2022 2:43pm 24 hr buPROPion hydrochloride 150 mg extended release oral tablet (12 sources) Aminoketone Start: 09-11-2021 End: 09-11-2021 take 1 tablet by mouth once daily in the morning Bupropion Hcl 150 mg tablet extended release 24 hr Discontinued 150 mg PO EVERY MORNING 30 September 11, 2021 1:00am September 11, 2021 7:40pm calcium ascorbate 500 mg oral tablet (12 sources) Start: 10-03-2020 End: 09-11-2021 take 1 tablet by mouth once daily Ascorbate Calcium (Vitamin C) 500 mg tablet Discontinued 500 mg PO DAILY October 03, 2020 12:00am September 11, 2021 6:55pm cephalexin 500 mg oral tablet (4 sources) Cephalosporin Antibacterial Start: 01-26-2024 End: 02-07-2024 take 1 tablet by mouth twice daily Cephalexin 500 mg tablet Discontinued 500 mg PO TWICE A DAY 10 5 0 February 02, 2024 11:06am February 06, 2024 12:00am February 07, 2024 12:04am cholecalciferol 0.025 mg oral capsule (12 sources) Vitamin D Start: 09-11-2021 End: 03-30-2022 take 1 capsule by mouth once daily Cholecalciferol (Vitamin D3) 25 mcg (1,000 unit) capsule Discontinued 25 ug PO DAILY September 11, 2021 1:00am March 30, 2022 2:43pm citalopram 40 mg oral tablet (20 sources) Serotonin Reuptake Inhibitor Start: 09-11-2021 End: 05-01-2024 take 1 tablet by mouth once daily Citalopram 40 mg tablet Discontinued 0 .ROUTE .COMPLEX 90 0 September 16, 2023 5:05pm December 27, 2023 1:24pm take 1 tablet by mouth once daily Start: 02-17-2021 End: 09-11-2021 take 1 tablet by mouth once daily Citalopram (Celexa) 20 mg Tablet Discontinued 20 mg PO DAILY April 03, 2021 12:00am September 11, 2021 7:41pm Start: 10-03-2020 End: 02-17-2021 take 0.3 tablet by mouth every week Citalopram (Celexa) 20 mg tablet Discontinued 20 mg PO .3 x q wk October 03, 2020 12:00am February 17, 2021 1:44pm Cranberry Fruit 1,000 mg Capsule (2 sources) Start: 04-22-2021 End: 09-11-2021 take 1 capsule by mouth once daily Cranberry Fruit 1,000 mg Capsule Discontinued 1000 mg PO DAILY April 22, 2021 12:00am September 11, 2021 6:55pm cyclobenzaprine hydrochloride 10 mg oral tablet (10 sources) Muscle Relaxant Start: 10-21-2022 End: 11-29-2022 take 5 mg by mouth three times daily as needed for muscle spasms Cyclobenzaprine 10 mg tablet Discontinued 5 mg PO THREE TIMES A DAY as needed for muscle spasm 90 1 October 21, 2022 12:00am November 29, 2022 10:57am Start: 10-21-2022 End: 11-29-2022 take 5 mg by mouth three times daily Cyclobenzaprine Discontinued 5 MG PO THREE TIMES A DAY 90 October 21, 2022 12:00am November 29, 2022 10:57am diphenhydrAMINE hydrochloride 25 mg oral capsule (12 sources) Histamine-1 Receptor Antagonist Start: 10-03-2020 End: 01-18-2021 take 1 capsule by mouth at bedtime Diphenhydramine Hcl (Allergy Medication) 25 mg capsule Discontinued 25 mg PO AT BEDTIME October 03, 2020 12:00am January 18, 2021 11:28am docosahexaenoic acid 200 mg oral capsule (20 sources) Start: 06-08-2023 End: 02-23-2025 take 1 capsule by mouth once daily Docosahexaenoic Acid ( Dha) 200 mg capsule Discontinued 200 mg PO DAILY June 08, 2023 1:00am February 23, 2025 7:45am Start: 03-30-2022 End: 11-29-2022 take 1 capsule by mouth once Docosahexaenoic Acid (Pre Dha) 200 mg capsule Discontinued 200 mg PO ONCE 1 0 March 30, 2022 12:00am November 29, 2022 10:56am Start: 10-03-2020 End: 02-17-2021 Docosahexaenoic Acid (Prenat al Dha) 200 mg capsule Discontinued mg PO October 03, 2020 12:00am February 17, 2021 1:44pm docusate sodium 100 mg oral capsule (2 sources) Start: 01-16-2024 End: 02-23-2025 take 1 capsule by mouth once daily Docusate Sodium (Colace) 100 mg capsule Discontinued 100 mg PO DAILY January 16, 2024 12:00am February 23, 2025 7:45am constipation doxycycline monohydrate 100 mg oral tablet (20 sources) Tetracycline -class Drug Start: 12-25-2022 End: 01-15-2023 take 1 tablet by mouth twice daily Doxycycline Monohydrate 100 mg tablet Discontinued 100 mg PO TWICE A DAY 42 21 0 December 25, 2022 12:00am January 14, 2023 12:00am January 15, 2023 12:03am Start: 04-07-2022 End: 09-25-2022 take 1 capsule by mouth twice daily Doxycycline Monohydrate 100 mg capsule Discontinued 100 mg PO TWICE A DAY 10 0 April 07, 2022 12:00am September 25, 2022 8:29am Start: 01-20-2021 End: 02-17-2021 take 1 capsule by mouth twice daily Doxycycline Monohydrate 100 mg capsule Discontinued 100 mg PO TWICE A DAY 20 0 January 20, 2021 12:00am February 17, 2021 1:41pm estradiol 2 mg oral tablet (6 sources) Estrogen Start: 06-08-2023 End: 07-01-2023 take 1 tablet by mouth once daily Estradiol (Estrace) 2 mg tablet Discontinued 2 mg PO DAILY June 08, 2023 1:00am July 01, 2023 4:58pm ferrous sulfate 325 mg oral tablet (12 sources) Start: 11-10-2021 End: 03-30-2022 take 1 tablet by mouth once daily Ferrous Sulfate 325 mg (65 mg iron) tablet Discontinued 325 mg PO DAILY 60 2 November 10, 2021 12:00am March 30, 2022 2:44pm fluconazole 150 mg oral tablet (2 sources) Azole Antifungal Start: 02-02-2024 End: 02-23-2025 Fluconazole 150 mg tablet Discontinued 150 mg PO .COMPLEX 1 0 February 02, 2024 12:00am February 23, 2025 7:46am 150 mg orally take one po now; levonorgestrel 0.315350 mg/hr intrauterine system (20 sources) Progestin, Progestin-containi ng Intrauterine Device Start: 10-03-2020 End: 09-29-2021 Levonorgestrel (Mirena) 20 mcg/24 hours (6 yrs) 52 mg intrauterine device Discontinued 1 NMA INTRA-UTER ONCE October 03, 2020 2:16pm September 29, 2021 2:37pm as a single dose Start: 10-03-2020 End: 09-29-2021 levonorgestrel 20 mcg/24 gisella rs (6 yrs) 52 mg intrauterine device Discontinued 1 DEVICE INTRA-UTER ONCE October 03, 2020 2:16pm September 29, 2021 2:37pm as a single dose Magnesium (2 sources) Start: 12-27-2023 End: 02-23-2025 take 1 tablet by mouth once daily Magnesium 200 mg tablet Discontinued 200 mg PO DAILY December 27, 2023 12:00am February 23, 2025 7:46am supplement melatonin 3 mg oral capsule (12 sources) Start: 01-18-2021 End: 09-11-2021 take 5 mg by mouth at bedtime as needed for sleep Melatonin 3 mg capsule Discontinued 5 mg PO BEDTIME as needed for Sleep January 18, 2021 12:00am September 11, 2021 6:59pm Start: 01-18-2021 End: 09-11-2021 take 5 mg by mouth at bedtime Melatonin Discontinued 5 MG PO BEDTIME January 18, 2021 12:00am September 11, 2021 6:59pm methylPREDNISolone 4 mg oral tablet (10 sources) Corticosteroid Start: 10-21-2022 End: 11-29-2022 take 1 tablet by mouth once daily Methylprednisolone (Medrol (Zachary)) 4 mg tablets,dose pack Discontinued 4 mg PO DAILY 21 October 21, 2022 12:00am November 29, 2022 10:56am metroNIDAZOLE 500 mg oral tablet (2 sources) Nitroimidazole Antimicrobial Start: 02-02-2024 End: 02-09-2024 take 1 tablet by mouth twice daily Metronidazole 500 mg tablet Discontinued 500 mg PO TWICE A DAY 14 7 February 02, 2024 12:00am February 08, 2024 12:00am February 09, 2024 12:03am naproxen 500 mg oral tablet (14 sources) Nonsteroidal Anti-inflammatory Drug Start: 01-19-2024 End: 02-23-2025 take 1 tablet by mouth twice daily as needed for pain Naproxen 500 mg tablet Discontinued 500 mg PO TWICE DAILY NEEDED as needed for Pain 30 January 19, 2024 12:00am February 23, 2025 7:46am Start: 04-29-2021 End: 05-19-2021 take 250-500 mg by mouth every eight hours as needed for pain Naproxen 250 MG tablet Discontinued 250 - 500 mg PO EVERY 8 HOURS NEEDED as needed for MILD PAIN 30 April 29, 2021 12:00am May 19, 2021 3:40pm nitrofurantoin, macrocrystals 25 mg / nitrofurantoin, monohydrate 75 mg oral capsule (19 sources) Nitrofuran Antibacterial Start: 01-25-2023 End: 02-01-2023 take 1 capsule by mouth every twelve hours at mealtime Nitrofurantoin Monohyd/M-Cryst 100 mg capsule Discontinued 1 NMA PO Q12H 14 7 0 January 25, 2023 12:00am January 31, 2023 12:00am February 01, 2023 12:04am administer with a meal/food; swallow whole; do not open, crush, dissolve , or chew Start: 09-25-2022 End: 10-02-2022 take 1 capsule by mouth every twelve hours at mealtime Nitrofurantoin Monohyd/M-Cryst 100 mg capsule Discontinued 1 NMA PO Q12H 14 7 0 September 25, 2022 12:00am October 01, 2022 12:00am October 02, 2022 12:05am administer with a meal/food; swallow whole; do not open, crush, dissolve , or chew norethindrone acetate 5 mg oral tablet (2 sources) Start: 01-15-2025 End: 01-22-2025 take 1 tablet by mouth three times daily Norethindrone Acetate 5 mg tablet Discontinued 5 mg PO THREE TIMES A DAY 21 7 0 January 15, 2025 12:00am January 21, 2025 12:00am January 22, 2025 12:07am Menorrhagia Excessive and frequent menstruation with regular cycle ondansetron 4 mg oral tablet (12 sources) Serotonin-3 Receptor Antagonist Start: 04-29-2021 End: 05-19-2021 take 1 tablet by mouth four times daily as needed for nausea Ondansetron Hcl (Zofran) 4 mg tablet Discontinued 4 mg PO 4 TIMES DAILY NEEDED as needed for Nausea 30 2 April 29, 2021 12:00am May 19, 2021 3:40pm phenazopyridine hydrochloride 100 mg oral tablet (11 sources) Start: 09-25-2022 End: 10-21-2022 take 1 tablet by mouth three times daily at mealtime for pain Phenazopyridine (Pyridium) 100 mg tablet Discontinued 100 mg PO THREE TIMES A DAY as needed for pain 7 0 September 25, 2022 12:00am October 21, 2022 10:54am administer with a full glass of water after each meal progesterone 50 mg/ml injectable solution (6 sources) Progesterone Start: 06-08-2023 End: 07-01-2023 inject 5 mg by intramuscular injection once daily Progesterone 50 mg/mL oil Discontinued 5 mg IM DAILY June 08, 2023 1:00am July 01, 2023 4:58pm Start: 06-08-2023 End: 07-01-2023 inject 5 mg by intramuscular injection once daily Progesterone Discontinued 5 MG IM DAILY June 08, 2023 1:00am July 01, 2023 4:58pm tranexamic acid 650 mg oral tablet (12 sources) Antifibrinolytic Agent Start: 09-29-2021 End: 09-25-2022 Tranexamic Acid (Lysteda) 650 mg tablet Discontinued 1300 mg PO THREE TIMES A DAY 30 5 4 September 29, 2021 12:00am September 25, 2022 8:44am begin at onset of menstrual bleeding triamcinolone acetonide 0.001 mg/mg topical ointment (20 sources) Corticosteroid Start: 09-02-2022 End: 03-23-2024 Triamcinolone Acetonide 0.1 % ointment Discontinued 1 NMA TOPICAL TWICE A DAY 454 2 September 02, 2022 9:37am March 23, 2024 1:49pm ezcema Start: 11-04-2021 End: 09-02-2022 Triamcinolone Acetonide 0.1 % ointment Discontinued 1 NMA TOPICAL TWICE A DAY 30 2 March 31, 2022 9:53am September 02, 2022 9:38am Start: 03-07-2021 End: 09-02-2022 Triamcinolone Acetonide 0.1 % ointment Discontinued 1 NMA TOPICAL TWICE A DAY 30 2 March 07, 2021 12:00am November 04, 2021 2:07pm Problems Active Problems Problem Classification Problem Date Documented Date Episodic/Chronic Abdominal pain (14 sources) Pain in pelvis; Translations: [Pelvic and perineal pain] 05-19-2021 Episodic Comment on above: suspect endometriosi s. failed ocp, depo provera, and peristent with IUD. plan diagnostic laparoscopy and cystoscopy and chromotubation. Allergic reactions (15 sources) Inflammatory dermatosis; Translations: [Dermatitis, unspecified] Onset: 02-23-2025 12-25-2022 Episodic Anxiety disorders (20 sources) Mixed anxiety and depressive disorder; Translations: [Anxiety disorder, unspecified] Chronic Asthma (20 sources) Asthma; Translations: [Unspecified asthma, uncomplicated] Chronic Comment on above: uses inhaler sparing ly Contraceptive and procreative management (12 sources) Intrauterine contraceptive device in situ; Translations: [Presence of (intrauterine) contraceptive device] 05-19-2021 Episodic Comment on above: have US available at surgery to confirm positioning after surgery Disorders usually diagnosed in infancy, childhood, or adolescence (13 sources) Adult attention deficit hyperactivity disorder ; Translations: [Other specified behavioral and emotional disorders with onset usually occurring in childhood and adolescence] Chronic Endometriosis (17 sources) Endometriosis (clinical); Translations: [Endometriosis, unspecified] Chronic Comment on above: ablation of implants , iud placed and then removed to conceeive 09/30. tubes patent, lysteda for heavy bleeding and painful menses while TTC. Genitourinary symptoms and ill-defined conditions (9 sources) Dysuria; Translations: [Dysuria] 01-25-2023 Episodic Hemorrhage during ; abruptio placenta; placenta previa (14 sources) Subchorionic hematoma; Translations: [Other antepartum hemorrhage, unspecified trimester] 06-04-2023 Episodic Immunizations and screening for infectious disease (13 sources) Patient encounter status; Translations: [Encounter for screening for COVID-19] 04-07-2022 Episodic Inflammatory diseases of female pelvic organs (2 sources) Abscess of vulva; Translations: [Abscess of vulva] 02-02-2024 Episodic Comment on above: + culture. Keflex, f lagyl Menstrual disorders (20 sources) Menorrhagia; Translations: [Excessive and frequent menstruation with regular cycle] Chronic Other bone disease and musculoskeletal deformities (20 sources) Segmental and somatic dysfunction; Translations: [Segmental and somatic dysfunction of cervical region] 11-13-2021 Episodic Other complications of ; puerperium affecting management of mother (4 sources) ultrasound scan abnormal; Translations: [Abnormal echocardiography affecting antepartum care of mother] 10-19-2023 Episodic Comment on above: Normal echo Other complications of ; puerperium affecting management of mother (2 sources) Vaginal tear resulting from childbirth; Translations: [Obstetric high vaginal laceration alone] 01-26-2024 Episodic Other complications of (12 sources) High risk ; Translations: [Supervision of high risk , unspecified, unspecified trimester] 06-14-2023 Episodic Comment on above: [id number], CONNOR 01/21/24 boy, - Stuart echo at 22-24 weeks(09/30/23), weekly NSTs after 36 and growth US q 4 weeks per [facility], delivery by 39, normal anatomy. 11/22/23: 51% EFW and AC 59%6/6-64% growth Other complications of (15 sources) Supervision of resulting from assisted reproductive technology, unspecified trimester; Translations: [ resulting from assisted reproductive technology] 06-14-2023 Episodic Other complications of (15 sources) Supervision of high risk , unspecified, unspecified trimester; Translations: [Supervision of unspecified high-risk ] 06-14-2023 Episodic Other connective tissue disease (2 sources) Tenosynovitis of right radial styloid; Translations: [Radial styloid tenosynovitis [de Quervain]] 02-23-2025 Episodic Other female genital disorders (3 sources) Disorder of menstruation; Translations: [Abnormal uterine and vaginal bleeding, unspecified] 11-10-2021 Chronic Other female genital disorders (1 source) Abnormal uterine and vaginal bleeding, unspecified; Translations: [Unspecified disorders of menstruation and other abnormal bleeding from female genital tract] Chronic Other non-traumatic joint disorders (10 sources) Shoulder pain; Translations: [Pain in unspecified shoulder] 10-21-2022 Episodic Other non-traumatic joint disorders (3 sources) Pain in unspecified shoulder; Translations: [Pain in joint, shoulder region] 10-21-2022 Episodic Other and delivery including normal (20 sources) First trimester ; Translations: [Encounter for supervision of normal , unspecified, first trimester] 06-04-2023 Episodic Comment on above: VAVD, JV 39.1 IOL IV F Neg GBS. normal ramez diamond, declined genetic/carrier testing, ordered afp/neg Other upper respiratory infections (13 sources) Sinusitis; Translations: [Chronic sinusitis, unspecified] 04-07-2022 Chronic Other upper respiratory infections (11 sources) Upper respiratory infection; Translations: [Acute upper respiratory infection, unspecified] 11-29-2022 Episodic Ovarian cyst (12 sources) Cyst of ovary; Translations: [Unspecified ovarian cyst, right side] 04-14-2021 Episodic Residual codes; unclassified (2 sources) Infertile 06-14-2023 Episodic Comment on above: refer to RGI, and re commend SA and HSG in mean time, AAYUSH kit, US, SA abnormal. Pt is seeing RGI Spondylosis; intervertebral disc disorders; other back problems (20 sources) Chronic back pain ; Translations: [Dorsalgia, unspecified] 11-13-2021 Episodic Unclassified (4 sources) L30.9 - Dermatitis, unspecified Urinary tract infections (3 sources) Urinary tract infection, site not specified; Translations: [Urinary tract infection, site not specified] 09-25-2022 Episodic Past or Other Problems Problem Classification Problem Date Documented Da te Episodic/Chronic Unclassified (11 sources) Infertile; Translations: [Infertility] 10-12-2022 Results Test Name Value Interpretation Reference Range Facility Internal Medicine Office Vis kunal 02-23-2025 Internal Medicine Office Visit [facility] [address] [place], [place] [address] OFFICE VISIT Date of Service: 02/23/25 MR#: [id number] Acct: [id number] Name: ROMAINE OLSON Rep #: [id number] 3 : 1995 Provider: Dr. Pablito jose MD Age/Sex: 29/F Location: [facility] [place] Status: Signed Intake Vital Signs 12/27/23 13:09 03/23/24 13:50 02/23/25 07:42 Height 5 ft 8 in 5 ft 8 in 5 ft 8 in Weight: 172 lb 8 oz BMI 26.2 BP 102/64 Blood Pressure Location Lt brachial Position Sitting Respiration 16 Pulse 86 Pulse Source Monitor Temp 96.6 F L Temp Source Temporal Pulse Oximetry (%) 99 Oxygen Delivery Method room air Intake Visit Reasons: YEARLY Chief Complaint: yearly Eye Technician Required: No Accompanied by: Self Is patient in pain?: No Allergies amoxicillin Allergy (Intermediate, Verified 02/23/25 07:47) Rash Medications ???Medication ???Instructions ???Recorded ???Confirmed ???Type cetirizine 10 mg capsule (Zyrtec) 10 mg PO DAILY allergies 01/18/21 02/23/25 History citalopram 40 mg tablet 40 mg PO DAILY depression #90 tabs 05/01/24 02/23/25 Rx meloxicam 15 mg tablet 15 mg PO QDAY #30 tabs 02/23/25 Rx PFSH Medical History (Updated 02/23/25 @ 09:[address] Pablito German MD) De Quervain's tenosynovitis, right Dermatitis Preventative health care Heavy menstrual bleeding Endometriosis Upper back pain on left side Neck pain Shoulder pain Abnormal bleeding in menstrual cycle Attention deficit disorder (ADD) in adult Chronic back pain History of cardiac murmur Gluten intolerance Seasonal allergies Depression Anxiety Alcohol use Anxiety and depression Asthma Surgical History Hx of exploratory laparotomy Hx of wisdom tooth extraction History of appendectomy Family History Mother Endometriosis Uterine cyst Breast cancer, Onset Age: 44 In remission Grandfather Alcoholism Colon cancer Father Anxiety Thyroid disorder Heart disease, Onset Age: 50 A. Fib Brother Anxiety Grandmother Arthritis Bowel disease Aunt Cervical cancer Other Depression Hypertension Melanoma Mental disorder Myocardial infarction Social History adopted: No household members: spouse housing: house current occupational status: employed current occupation: [employer] current occupational exposures/hazards: No pets and animals: Yes (2) pets and animals: dog(s) history of recent travel: No sexually active: Yes Smoking Status: Former smoker alcohol intake: current alcohol intake frequency: holidays/special occasions only details: Socially - Not substance use type: does not use and other details: used weed at 20yo diet: gluten free well-balanced diet: daily or most days caffeine: Yes (1 cup of day) Type: coffee eating out: 1-3 times/week during the past year weight has: increased > 10 lbs what type of physical activity do you participate in: walking frequency: 3-4 times per week duration: 15-30 minutes/day seatbelt use: always do you feel safe at home: Yes additional social history: - 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 Also has some concerns. She reports right wrist pain which has been ongoing for 3 months. Worse with certain movements and carrying her son. No known precipitating factor or injury. Has been using a wrist brace with minimal benefit. She also reports lesions on her lower extremity. Initially started on the right and lately has noted some on the left. Not itchy, raised. Has not been seen by dermatology but she is open to this. History of depression and anxiety currently on citalopram. She states that she is currently in a good place and would like to possibly go off medication. No concerning side effects. Currently at a BMI of 26.2. 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 Has been eating healthy. Otherwise, she is doing well. ROS Const Constitutional: No body ache, excessive sweating, fatigue, fever(s), frequent falls, headache(s), snoring, weakness, weight change, sleep problems or change in appetite Eyes Eyes: No blurry vision, change in vision, eye pain or Light sensitivity ENT ENT: No abnormal hearing, ear or mastoid pain, tinnitus, nasal congestion, headache(s), neck pain or sore throat Resp Respiratory: No cough, shortness of breath, snoring or wheezing Cardio Cardiology: No chest pain at rest, chest pain with exertion, excessi (more content not included)... Normal [facility] Office Visit Reporton 2023 Office Visit Report [facility] [address] [place] [address] OFFICE VISIT Date of Service: 04/04/24 MR#: [id number] Acct: [id number] Patient: ROMAINE OLSON GORGE Rep #: [id number] : 1995 Provider: DALE Brambila Age/Sex: 28/F Location: [facility] [place] Status: Signed Intake Vital Signs 03/23/24 13:50 Height 5 ft 8 in Intake Visit Reasons: PE NON DOT DRUG SCREEN/ PRENTKE Chief Complaint: maybe on period Allergies amoxicillin Allergy (Intermediate, Verified 03/23/24 13:48) Rash wheat Allergy (Mild, Verified 03/23/24 13:48) eczema, constipation Office Procedures [facility] Billing Sheet Testing Pre-Employment Drug Screen: Yes Assessment and Plan Plan Details Goals Barriers: Goals Decrease spasm Decrease pain Decrease HAs 04/24/24 0913 Date Gaurav Sanchez Signature: Date (if applicable) CC: Normal [facility] Insulation Board Head Saw Operator Office Visit Reporton 03-23-2024 Insulation Board Head Saw Operator Office Visit Report [facility] [address], [address] [place] [address] OFFICE VISIT Date of Service: 03/23/24 MR#: [id number] Acct: [id number] Name: ROMAINE OLSON GORGE Rep #: [id number] 3 : 1995 Provider: MP Mcmillan ams Age/Sex: 28/F Location: [facility] [place] Status: Signed Intake Vital Signs 03/02/24 15:35 03/23/24 13:44 03/23/24 13:50 Height 5 ft 8 in 5 ft 8 in 5 ft 8 in Weight: 168 lb BMI 25.5 BP 118/76 Intake Visit Reasons: 3 WK FU PPD Eye Technician Required: No Is patient in pain?: No Allergies amoxicillin Allergy (Intermediate, Verified 03/23/24 13:48) Rash wheat Allergy (Mild, Verified 03/23/24 13:48) eczema, constipation Medications ???Medication ???Instructions ???Recorded ???Confirmed ???Type cetirizine 10 mg capsule (Zyrtec) 10 mg PO DAILY allergies 01/18/21 03/02/24 History albuterol sulfate 90 mcg/actuation 1 - 2 puff inhalation Q6H PRN 09/12/21 03/02/24 Rx aerosol inhaler (ProAir HFA) shortness of breath or wheezing #8.5 grams docosahexaenoic acid 200 mg 200 mg PO DAILY 06/08/23 03/02/24 History capsule ( DHA) magnesium 200 mg tablet 200 mg PO DAILY supplement 12/27/23 03/02/24 History citalopram 40 mg tablet 40 mg PO DAILY depression 01/16/24 03/02/24 History docusate sodium 100 mg capsule 100 mg PO DAILY constipation 01/16/24 03/02/24 History (Colace) naproxen 500 mg tablet 500 mg PO BID PRN PRN Pain #30 tabs 01/19/24 03/02/24 Rx fluconazole 150 mg tablet 150 mg PO .COMPLEX #1 TAB 02/02/24 03/02/24 Rx PFSH Medical History Endometriosis Dermatitis Upper back pain on left side Neck pain Shoulder pain Heavy menstrual bleeding Abnormal bleeding in menstrual cycle Attention deficit disorder (ADD) in adult Chronic back pain History of cardiac murmur Gluten intolerance Seasonal allergies Depression Anxiety Alcohol use Anxiety and depression Asthma Surgical History Hx of exploratory laparotomy Hx of wisdom tooth extraction History of appendectomy Family History Mother Endometriosis Uterine cyst Breast cancer, Onset Age: 44 In remission Grandfather Alcoholism Colon cancer Father Anxiety Thyroid disorder Heart disease, Onset Age: 50 A. Fib Brother Anxiety Grandmother Arthritis Bowel disease Aunt Cervical cancer Other Depression Hypertension Melanoma Mental disorder Myocardial infarction Social History adopted: No household members: spouse housing: house current occupational status: employed current occupation: [employer] current occupational exposures/hazards: No pets and animals: Yes (2) pets and animals: dog(s) history of recent travel: No sexually active: Yes Smoking Status: Former smoker alcohol intake: current alcohol intake frequency: holidays/special occasions only details: Socially - Not substance use type: does not use and other details: used weed at 20yo diet: gluten free well-balanced diet: daily or most days caffeine: Yes (1 cup of day) Type: coffee eating out: 1-3 times/week during the past year weight has: increased > 10 lbs what type of physical activity do you participate in: walking frequency: 3-4 times per week duration: 15-30 minutes/day seatbelt use: always do you feel safe at home: Yes additional social history: - 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 PHQ-9 score was a 3 today. reports feeling much better and is sleeping more. Feels she has support from her and did not end up calling the counselor as discussed. Vaginal tenderness mostly gone except when sitting on toilet. Has not attempted to have intercourse yet because is concerned it will be painful. Menses started again yesterday. Female Reproductive History Last Menstrual Period: 03/22/24 Cycle Length: 21-35 Questions: metorrhagia: No and sexually active: No History 1 Elective 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 Date Name GA/Weeks Outcome Route Bth Weight Gen Labor Lgth Anesthesia Del Philipatn Provider FOB 01/24/24 39 live - full term vacuum [facility] Delivery Date: 01/24/24 Last Updated by: Judy Kitchen IOL IVF Vacuum ROS Const Constitutional: Reports system reviewed and no additional complaints, except as documented Cardio (more content not included)... Normal [facility] MR/BMS.BBCon 03-07-2024 MR/BMS.BBC [facility] [address] [place] [address] OFFICE VISIT Date of Service: 02/08/24 MR#: [id number] Acct: [id number] Name: ROMAINE OLSON GORGE Rep #: [id number] 1 : 1995 Provider: Lyn Trent NP Age/Sex: 28/F Location: [facility] [place] Status: Signed Intake Vital Signs 02/02/24 10:53 03/07/24 11:49 Height 5 ft 8 in 5 ft 8 in Intake Visit Reasons: assessment Chief Complaint: breastfeeidng assessment, nipple pain Allergies amoxicillin Allergy (Intermediate, Verified 03/02/24 15:35) Rash wheat Allergy (Mild, Verified 03/02/24 15:35) eczema, constipation : Yes PFSH PFSH Medical History Endometriosis Dermatitis Upper back pain on left side Neck pain Shoulder pain Heavy menstrual bleeding Abnormal bleeding in menstrual cycle Attention deficit disorder (ADD) in adult Chronic back pain History of cardiac murmur Gluten intolerance Seasonal allergies Depression Anxiety Alcohol use Anxiety and depression Asthma Surgical History Hx of exploratory laparotomy Hx of wisdom tooth extraction History of appendectomy Family History Mother Endometriosis Uterine cyst Breast cancer, Onset Age: 44 In remission Grandfather Alcoholism Colon cancer Father Anxiety Thyroid disorder Heart disease, Onset Age: 50 A. Fib Brother Anxiety Grandmother Arthritis Bowel disease Aunt Cervical cancer Other Depression Hypertension Melanoma Mental disorder Myocardial infarction Social History adopted: No household members: spouse housing: house current occupational status: employed current occupation: [employer] current occupational exposures/hazards: No pets and animals: Yes (2) pets and animals: dog(s) history of recent travel: No sexually active: Yes Smoking Status: Former smoker alcohol intake: current alcohol intake frequency: holidays/special occasions only details: Socially - Not substance use type: does not use and other details: used weed at 20yo diet: gluten free well-balanced diet: daily or most days caffeine: Yes (1 cup of day) Type: coffee eating out: 1-3 times/week during the past year weight has: increased > 10 lbs what type of physical activity do you participate in: walking frequency: 3-4 times per week duration: 15-30 minutes/day seatbelt use: always do you feel safe at home: Yes additional social history: - 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 Date Name GA/Weeks Outcome Route Bth Weight Gen Labor Lgth Anesthesia Del Locatn Provider FOB 01/24/24 39 live - full term vacuum [facility] Delivery Date: 01/24/24 Last Updated by: Judy Kitchen IOL IVF Vacuum HPI HPI HPI: ROMAINE OLSON, is a 28 F who presents to the office today for assessment, nipple pain. History provided by the patient. ROS ROS Const Constitutional: Denies fever(s) or lethargy : Denies nipple discharge Skin Skin/Breast: Denies breast pain, breast skin changes or nipple discharge Details: q2-3 hours, 10-15 minutes to first side and 3-15 to second side, pumping and bottle feeding at night, has oversupply, nipples were cracked but did heal but now back to being painful, using silverettes Exam Maternal Assessment Breast Assessment Bilateral Breasts: Full Nipple Assessment Bilateral Nipples: Everted Areolar Tissue Areolar Tissue: Pliable Assessment Baby Feeding History Is your baby latching onto the breast: Yes Number of Breast Feedings in 24 hours: 5-6 Minutes per breast: First Breast: 10-15 Minutes per breast: Second Breast: 3-15 Supplements Supplement Type:: Expressed milk Frequency: q 3 hours at night Amount: 3-3.5 oz Breast Pumping Type of Breast Pump: Spectra, MomCozy Frequency: q3-4 hours at night and at times after day feeds if feeling full Amount: 2-12 oz Reason for supplements or pumping:: oversupply Goals Breast Feeding Goals: Exclusive Exam Const General: comfortable and no acute distress Orientation: alert and oriented x3 Chest Breast inspection: normal inspection of the breasts Breast palpation: normal palpation of the breasts Other: bilateral nipples reddened Resp Effort Inspection: normal respiratory effort Skin Ge (more content not included)... Normal [facility] Insulation Board Head Saw Operator Office Visit Reporton 03-02-2024 Insulation Board Head Saw Operator Office Visit Report [facility]'s [address], [address] [place] [address] OFFICE VISIT Date of Service: 03/02/24 MR#: [id number] Acct: [id number] Name: JUDITROMAINE ELIZABETH GORGE Rep #: [id number] : 1995 Provider: MP Mcmillan ams Age/Sex: 28/F Location: [facility] [place] Status: Signed Intake Vital Signs 01/16/24 20:11 02/02/24 10:53 03/02/24 15:34 03/02/24 15:35 Height 5 ft 8 in 5 ft 8 in 5 ft 8 in 5 ft 8 in Weight: 169 lb BMI 25.7 BP 101/68 Intake Visit Reasons: visit (obstetrics) Chief Complaint: maybe on period Eye Technician Required: No Allergies amoxicillin Allergy (Intermediate, Verified 03/02/24 15:35) Rash wheat Allergy (Mild, Verified 03/02/24 15:35) eczema, constipation Medications ???Medication ???Instructions ???Recorded ???Confirmed ???Type cetirizine 10 mg capsule (Zyrtec) 10 mg PO DAILY allergies 01/18/21 03/02/24 History albuterol sulfate 90 mcg/actuation 1 - 2 puff inhalation Q6H PRN 09/12/21 03/02/24 Rx aerosol inhaler (ProAir HFA) shortness of breath or wheezing #8.5 grams triamcinolone acetonide 0.1 % 1 applic topical BID ezcema #454 09/02/22 03/02/24 Rx topical ointment grams docosahexaenoic acid 200 mg 200 mg PO DAILY 06/08/23 03/02/24 History capsule ( DHA) magnesium 200 mg tablet 200 mg PO DAILY supplement 12/27/23 03/02/24 History citalopram 40 mg tablet 40 mg PO DAILY depression 01/16/24 03/02/24 History docusate sodium 100 mg capsule 100 mg PO DAILY constipation 01/16/24 03/02/24 History (Colace) naproxen 500 mg tablet 500 mg PO BID PRN PRN Pain #30 tabs 01/19/24 03/02/24 Rx oxycodone-acetaminop hen 5 mg-325 1 tab PO Q4H PRN pain 1 week #20 01/19/24 03/02/24 Rx mg tablet (Endocet) tabs fluconazole 150 mg tablet 150 mg PO .COMPLEX #1 TAB 02/02/24 03/02/24 Rx PFSH Medical History Endometriosis Dermatitis Upper back pain on left side Neck pain Shoulder pain Heavy menstrual bleeding Abnormal bleeding in menstrual cycle Attention deficit disorder (ADD) in adult Chronic back pain History of cardiac murmur Gluten intolerance Seasonal allergies Depression Anxiety Alcohol use Anxiety and depression Asthma Surgical History Hx of exploratory laparotomy Hx of wisdom tooth extraction History of appendectomy Family History Mother Endometriosis Uterine cyst Breast cancer, Onset Age: 44 In remission Grandfather Alcoholism Colon cancer Father Anxiety Thyroid disorder Heart disease, Onset Age: 50 A. Fib Brother Anxiety Grandmother Arthritis Bowel disease Aunt Cervical cancer Other Depression Hypertension Melanoma Mental disorder Myocardial infarction Social History adopted: No household members: spouse housing: house current occupational status: employed current occupation: 's for [employer] current occupational exposures/hazards: No pets and animals: Yes (2) pets and animals: dog(s) history of recent travel: No sexually active: Yes Smoking Status: Former smoker alcohol intake: current alcohol intake frequency: holidays/special occasions only details: Socially - Not substance use type: does not use and other details: used weed at 20yo diet: gluten free well-balanced diet: daily or most days caffeine: Yes (1 cup of day) Type: coffee eating out: 1-3 times/week during the past year weight has: increased > 10 lbs what type of physical activity do you participate in: walking frequency: 3-4 times per week duration: 15-30 minutes/day seatbelt use: always do you feel safe at home: Yes additional 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 Date Name GA/Weeks Outcome Route Bth Weight Infant Gen Labor Lgth Anesthesia Del Locatn Provider FOB 01/24/24 39 live - full term vacuum [facility] Delivery Date: 01/24/24 Last Updated by: Judy Kitchen IOL IVF Vacuum Depression Screen PHQ-2/9 PHQ-2 Over the last 2 weeks, how often have you been bothered by any of the following problems? 1. Little interest or pleasure in doing things: several days 2. Feeling down, depressed, or hopeless: several days Total score: 2 If score is 2 or greater, continue 3. Trouble falling or staying asleep, or sleeping too much: not at all 4. Feeling tired or having little energy: nearly every day 5. Poor appeti (more content not included)... Normal [facility] Absolute lymphocyte countOrd ered By: Isidra Fang on 10-19-2023 Lymphocytes Auto (Unsp spec) [#/Vol] 1.56 10*3/uL 0.83-4.51 [facility] Automated lymphocyte count a s percentage of total leukocytesOrdered By: Isidra Fang on 10-19-2023 Lymphocytes/100 WBC Auto (Unsp spec) 12.2 % 19-41 [facility] Basophil percentageOrdered B y: Isidra Fang on 10-19-2023 Basophils/100 WBC (Bld) 0.5 % 0-1 [facility] Eosinophils/100 WBC (Bld) 1.3 % 0-5 [facility] Hemoglobin (Bld) [Mass/Vol] 11.3 g/dL 12.0-15.0 [facility] Monocytes/100 WBC (Bld) 5.6 % 0-10 [facility] Neutrophils (Bld) [#/Vol] 10.0 10*3/uL 2.0-7.7 [facility] Neutrophils/100 WBC (Bld) 78.4 % 47-70 [facility] WBC (Bld) [#/Vol] 12.8 10*3/uL 4.4-11.0 [facility] Determination of erythrocyte mean corpuscular volume (MCV)Ordered By: Isidra Fang on 10-19-2023 MCV (RBC) [Entitic vol] 86.5 fL 81-99 [facility] Erythrocyte distribution wid th ratioOrdered By: Isidra Fang on 10-19-2023 Erythrocyte distribution width (RBC) [Ratio] 13.6 % 11.6-14.6 [facility] Erythrocyte distribution wid th standard deviationOrdered By: Isidra Fang on 10-19-2023 Erythrocyte distribution width (RBC) [Entitic vol] 42.6 fL 35.1-43.9 [facility] Gestational diabetes screen 1-hour screen with 50g oral glucose loadOrdered By: Isidra Fang on 10-19-2023 Glucose 1 Hr post 50 g glucose PO [Mass/Vol] 99 mg/dL 70-140 [facility] HIV 1 and HIV-2 antibody ass ay with HIV-1 p24 antigen detectionOrdered By: Isidra Fang on 10-19-2023 HIV 1+2 Ab+HIV1 p24 Ag IA Ql Non-Reactive Nonreactive [facility] Hematocrit Auto (Bld) [Volum e fraction]Ordered By: Isidra Fang on 10-19-2023 Hematocrit (Bld) [Volume fraction] 34.7 % 37-47 [facility] Immature granulocytes/100 WB C Auto (Bld)Ordered By: Isidra Fang on 10-19-2023 Immature granulocytes/100 WBC (Bld) 2.000 % 0.0-0.9 [facility] Comment on above: IG% - Immature Granu locytes (promyelocytes, myelocytes and metamyelocytes) > 1% indicates that a LEFT SHIFT is Present. Laboratory - Chemistry and C hemistry - challengeon 10-19-2023 Glucose Ql (U) Negative [facility] Laboratory - Hematology and Cell countsOrdered By: Isidra Fang on 10-19-2023 MCH (RBC) [Entitic mass] 28.2 pg 27.0-32.0 [facility] MCHC (RBC) [Mass/Vol] 32.6 g/dL 32-36 [facility] Nucleated RBC/100 WBC (Bld) [Ratio] 0 % 0-5 [facility] Platelet mean volume (Bld) [Entitic vol] 11.2 fL 6.2-12.0 [facility] Platelets (Bld) [#/Vol] 196 10*3/uL 150-450 [facility] Laboratory - Urinalysison Protein Ql (U) Negative [facility] RBC Auto (Bld) [#/Vol]Ordere d By: Isidra Fang on 10-19-2023 RBC (Bld) [#/Vol] 4.01 10*6/uL 4.2-5.4 [facility] Serum Treponema species anti body detectionOrdered By: Isidra Fang on 10-19-2023 Treponema sp Ab Ql (S) Non-Reactive [facility] Basophil percentageOrdered B y: Yojana Roe on 10-07-2023 Hemoglobin (Bld) [Mass/Vol] 11.0 g/dL 12.0-15.0 [facility] LDH [Catalytic activity/Vol] 160 U/L 84-246 [facility] WBC (Bld) [#/Vol] 11.7 10*3/uL 4.4-11.0 [facility] Determination of erythrocyte mean corpuscular volume (MCV)Ordered By: Yojana Roe on 10-07-2023 MCV (RBC) [Entitic vol] 87.2 fL 81-99 [facility] Erythrocyte distribution wid th ratioOrdered By: Yojana Roe on 10-07-2023 Erythrocyte distribution width (RBC) [Ratio] 13.9 % 11.6-14.6 [facility] Erythrocyte distribution wid th standard deviationOrdered By: Yojana Roe on 10-07-2023 Erythrocyte distribution width (RBC) [Entitic vol] 44.2 fL 35.1-43.9 [facility] Hematocrit Auto (Bld) [Volum e fraction]Ordered By: Yojana Roe on 10-07-2023 Hematocrit (Bld) [Volume fraction] 34.8 % 37-47 [facility] Laboratory - Chemistry and C hemistry - challengeOrdered By: Yojana Roe on 10-07-2023 ALT [Catalytic activity/Vol] 21 U/L 13-56 [facility] Laboratory - Hematology and Cell countsOrdered By: Yojana Roe on 10-07-2023 MCH (RBC) [Entitic mass] 27.6 pg 27.0-32.0 [facility] MCHC (RBC) [Mass/Vol] 31.6 g/dL 32-36 [facility] Platelet mean volume (Bld) [Entitic vol] 11.1 fL 6.2-12.0 [facility] Platelets (Bld) [#/Vol] 196 10*3/uL 150-450 [facility] No Panel InformationOrdered By: Yojana Roe on 10-07-2023 Estimated Creatinine Clearance Calc 166.83 ml/min [facility] Estimated GFR (MDRD) Amer 163 mL/min >60 [facility] Comment on above: GFR Calc Estimated GFR (MDRD) Non-Af Amer 135 mL/min >60 [facility] Comment on above: Non- GFR Calc RBC Auto (Bld) [#/Vol]Ordere d By: Yojana Roe on 10-07-2023 RBC (Bld) [#/Vol] 3.99 10*6/uL 4.2-5.4 [facility] Serum or plasma creatinine m easurement (mass/volume)Ordered By: Yojana Roe on 10-07-2023 Creatinine [Mass/Vol] 0.58 mg/dL 0.55-1.02 [facility] Comment on above: The validity of the calculated GFR & GFRAA in patients over 70 years has not been determined. Clinical correlation is essential. Serum or plasma uric acid me asurement (mass/volume)Ordered By: Yojana Roe on 10-07-2023 Urate [Mass/Vol] 3.8 mg/dL 2.6-6.0 [facility] Comment on above: The drugs N-Acetylcy steine and Metamizole may falsely depress this assay. Thin prep Papanicolaou smear with manual screeningOrdered By: Yojana Roe on 10-07-2023 Protein (U) [Mass/Vol] 15.4 mg/dL 0.0-11.8 [facility] Thin prep Papanicolaou smear with manual screening 17 U/L 15-37 [facility] Urine creatinine measurement (mass/volume)Ordered By: Yojana Roe on 10-07-2023 Creatinine (U) [Mass/Vol] 153.00 mg/dL NO RANGE EST. [facility] Urine protein/creatinine mas s ratioOrdered By: Yojana Roe on 10-07-2023 Protein/Creatinine (U) [Mass ratio] 101 mg/g CRE 0-200 [facility] Laboratory - Chemistry and C hemistry - challengeon 09-20-2023 Glucose Ql (U) Negative [facility] Laboratory - Urinalysison Protein Ql (U) Negative [facility] Absolute lymphocyte countOrd ered By: Yojana Roe on 08-24-2023 Lymphocytes Auto (Unsp spec) [#/Vol] 1.54 10*3/uL 0.83-4.51 [facility] Automated lymphocyte count a s percentage of total leukocytesOrdered By: Yojana Roe on 08-24-2023 Lymphocytes/100 WBC Auto (Unsp spec) 15.1 % 19-41 [facility] Basophil percentageOrdered B y: Yojana Roe on 08-24-2023 Basophils/100 WBC (Bld) 0.3 % 0-1 [facility] Eosinophils/100 WBC (Bld) 2.7 % 0-5 [facility] Hemoglobin (Bld) [Mass/Vol] 11.7 g/dL 12.0-15.0 [facility] Monocytes/100 WBC (Bld) 5.6 % 0-10 [facility] Neutrophils (Bld) [#/Vol] 7.7 10*3/uL 2.0-7.7 [facility] Neutrophils/100 WBC (Bld) 75.2 % 47-70 [facility] WBC (Bld) [#/Vol] 10.2 10*3/uL 4.4-11.0 [facility] Determination of erythrocyte mean corpuscular volume (MCV)Ordered By: Yojana Roe on 08-24-2023 MCV (RBC) [Entitic vol] 84.5 fL 81-99 [facility] Erythrocyte distribution wid th ratioOrdered By: Yojana Roe on 08-24-2023 Erythrocyte distribution width (RBC) [Ratio] 13.5 % 11.6-14.6 [facility] Erythrocyte distribution wid th standard deviationOrdered By: Yojana Roe on 08-24-2023 Erythrocyte distribution width (RBC) [Entitic vol] 41.3 fL 35.1-43.9 [facility] HIV 1 and HIV-2 antibody ass ay with HIV-1 p24 antigen detectionOrdered By: Yojana Roe on 08-24-2023 HIV 1+2 Ab+HIV1 p24 Ag IA Ql Non-Reactive Nonreactive [facility] Hematocrit Auto (Bld) [Volum e fraction]Ordered By: Yojana Roe on 08-24-2023 Hematocrit (Bld) [Volume fraction] 35.5 % 37-47 [facility] Immature granulocytes/100 WB C Auto (Bld)Ordered By: Yojana Roe on 08-24-2023 Immature granulocytes/100 WBC (Bld) 1.100 % 0.0-0.9 [facility] Comment on above: IG% - Immature Granu locytes (promyelocytes, myelocytes and metamyelocytes) > 1% indicates that a LEFT SHIFT is Present. Laboratory - Chemistry and C hemistry - challengeon 08-24-2023 Glucose Ql (U) Negative [facility] Laboratory - Hematology and Cell countsOrdered By: Yojana Roe on 08-24-2023 MCH (RBC) [Entitic mass] 27.9 pg 27.0-32.0 [facility] MCHC (RBC) [Mass/Vol] 33.0 g/dL 32-36 [facility] Nucleated RBC/100 WBC (Bld) [Ratio] 0 % 0-5 [facility] Platelet mean volume (Bld) [Entitic vol] 11.1 fL 6.2-12.0 [facility] Platelets (Bld) [#/Vol] 200 10*3/uL 150-450 [facility] Laboratory - Urinalysison Protein Ql (U) Negative [facility] No Panel InformationOrdered By: Yojana Kary on 08-24-2023 Miscellaneous Test See comment [facility] Comment on above: TEST RESULTS LIMITSA FP, Serum, Open Spina BifidaResults ReportTest Results: *Screen Negative*Gest. Age on Collection Date 18.6 weeksGestat. Age Based On EDDRecalculations are not recommended when gestational dating by LMP and ultrasound are within 10 days.[age] yrRace CaucasianWeight 168 lbsInsulin Dep Diabetes Not provided.Multiple Gestation NoAFP Value 60.4 ng/mLAFP MoM 1.37OSBR Risk 1 IN 3920InterpretationInterpretation: Screen NegativeThis result is screen negative for OSB. The AFP MoM calculated is based on the gestational age provided. MS-AFP can identify up to 80% of open neural tube defects. Closed neural tube defects and some open defects may not be detected by this test. This test does not screen for Down Syndrome or Trisomy 18. If screening for Down Syndrome or Trisomy 18 is desired, contact [employer] to discuss available options. The [place] recommends amniocentesis be offered to women age 35 and older. TESTING PERFORMED AT [facility]. ORIGINAL REPORT ON FILE IN LAB CONTAINS ADDITIONAL TEST SITE INFORMATION. Hepatitis B Surface Antigen Non-Reactive Nonreactive [facility] Hepatitis C Antibody Non-Reactive Nonreactive [facility] Comment on above: Non Reactive: < 0.8 Equivocal: >/= 0.8 to < 1.0 Reactive: >/= 1.0The CDC recommends that a reactive/equivocal HCV antibody result be followed up by the HCV Nucleic Acid Amplificationtest (312089) Rubella IgG Antibody Reactive Nonreactive [facility] Comment on above: Antibody Results Int erpretation of Immune Status Non Reactive Presumed Non-Immune Equivocal Equivocal Reactive Presumed Immune RBC Auto (Bld) [#/Vol]Ordere d By: Yojana Roe on 08-24-2023 RBC (Bld) [#/Vol] 4.20 10*6/uL 4.2-5.4 [facility] Serum Treponema species anti body detectionOrdered By: Yojana Roe on 08-24-2023 Treponema sp Ab Ql (S) Non-Reactive [facility] Laboratory - Chemistry and C hemistry - challengeon 07-28-2023 Glucose Ql (U) Negative [facility] Laboratory - Urinalysison Protein Ql (U) Negative [facility] Laboratory - Chemistry and C hemistry - challengeon 07-01-2023 Glucose Ql (U) Negative [facility] Laboratory - Urinalysison Protein Ql (U) Negative [facility] Chlamydia trachomatis rRNA d etection by probe and target amplification methodOrdered By: Yojana Roe on 06-14-2023 C. trachomatis rRNA KEVIN+probe Ql (Unsp spec) Negative Negative [facility] Culture, urineOrdered By: Juliann Roe on 06-14-2023 Bacteria identified Cx Nom (U) Culture exhibits no growth. [facility] Bacteria identified Cx Nom (U) Culture exhibits no growth. [facility] Laboratory - Microbiology an d Antimicrobial susceptibilityOrdered By: Yojana Roe on 06-14-2023 N. gonorrhoeae DNA KEVIN+probe Ql (Unsp spec) Negative Negative [facility] Comment on above: Performed at: =[address] [id number] Director: Nicole Orozco MD, Phone: [phone] Blood hemoglobin measurement (mass/volume)Ordered By: Josh Harris on 06-04-2023 Hemoglobin (Bld) [Mass/Vol] 12.5 g/dL 12.0-15.0 [facility] Hematocrit Auto (Bld) [Volum e fraction]Ordered By: Josh Harris on 06-04-2023 Hematocrit (Bld) [Volume fraction] 38.0 % 37-47 [facility] Serum or plasma choriogonado tropin detectionOrdered By: Josh Harris on 06-04-2023 HCG ( test) [place]l [address] mIU/mL <4 [facility] Comment on above: RESULTS CALLED TO JENNIE MUÑOZ RN ER 06/04/232050 Gatito Worthy.REPORT READ BACK BY SAME .hCG levels with Gestational AgeGestational Age hCG mIU/mL (IU/L)0.2 - 1 week 5 - 501-2 weeks 50 - 5002-3 weeks 100 - 12669-0 weeks 500 - 307623-4 weeks 1000 - 731927-6 weeks 97338 - 100,0006-8 weeks 26884 - 200,0002-3 months 93625 - 100,000 Culture, urineOrdered By: Kike Khan on 01-26-2023 Bacteria identified Cx Nom (U) Escherichia coli [facility] Laboratory - Chemistry and C hemistry - challengeon 01-25-2023 Glucose Ql (U) Negative [facility] Ketones Ql (U) Negative [facility] Specific gravity (U) [Rel density] 1.005 [facility] Laboratory - Hematology and Cell countson 01-25-2023 Hemoglobin Ql (U) Trace [facility] Laboratory - Specimen inform ationon 01-25-2023 Color (U) ORANGE [facility] Absolute lymphocyte countOrd ered By: Dr. German on 12-25-2022 Lymphocytes Auto (Unsp spec) [#/Vol] 1.56 10*3/uL 0.83-4.51 [facility] Basophil percentageOrdered B y: Dr. German on 12-25-2022 Basophil percentage Not Reportable [facility] Basophils/100 WBC (Bld) 0.8 % 0-1 [facility] Bilirubin [Mass/Vol] 0.50 mg/dL 0.20-1.00 [facility] Comment on above: For patients on eltr ombopag therapy, use of Dimension [place] TBIL is not recommended. Chloride [Moles/Vol] 108 mmol/L 98-107 [facility] Eosinophils/100 WBC (Bld) 5.4 % 0-5 [facility] Glucose [Mass/Vol] 73 mg/dL 74-106 [facility] Neutrophils (Bld) [#/Vol] 3.5 10*3/uL 2.0-7.7 [facility] Neutrophils/100 WBC (Bld) 58.7 % 47-70 [facility] Potassium [Moles/Vol] 4.0 mmol/L 3.5-5.1 [facility] Protein [Mass/Vol] 7.1 g/dL 6.4-8.2 [facility] Sodium [Moles/Vol] 139 mmol/L 136-145 [facility] WBC (Bld) [#/Vol] 5.9 10*3/uL 4.4-11.0 [facility] Blood erythrocytes count (nu mber/volume)Ordered By: Dr. German on 12-25-2022 RBC (Bld) [#/Vol] 4.27 10*6/uL 4.2-5.4 [facility] Blood hemoglobin measurement (mass/volume)Ordered By: Dr. German on 12-25-2022 Hemoglobin (Bld) [Mass/Vol] 11.8 g/dL 12.0-15.0 [facility] Blood lymphocytes/100 leukoc ytesOrdered By: Dr. German on 12-25-2022 Lymphocytes/100 WBC (Bld) 26.5 % 19-41 [facility] Blood monocytes/100 leukocyt esOrdered By: Dr. German on 12-25-2022 Monocytes/100 WBC (Bld) 8.3 % 0-10 [facility] Blood platelet mean volumeOr dered By: Dr. German on 12-25-2022 Platelet mean volume (Bld) [Entitic vol] 11.4 fL 6.2-12.0 [facility] Determination of erythrocyte mean corpuscular volume (MCV)Ordered By: Dr. German on 12-25-2022 MCV (RBC) [Entitic vol] 87.1 fL 81-99 [facility] Hematocrit Auto (Bld) [Volum e fraction]Ordered By: Dr. German on 12-25-2022 Hematocrit (Bld) [Volume fraction] 37.2 % 37-47 [facility] Laboratory - Chemistry and C hemistry - challengeOrdered By: Dr. German on 12-25-2022 ALP [Catalytic activity/Vol] 65 U/L 45-117 [facility] ALT [Catalytic activity/Vol] 26 U/L 13-56 [facility] CO2 [Moles/Vol] 26.0 mmol/L 21.0-32.0 [facility] Globulin (S) [Mass/Vol] 3.3 g/dL 2.2-4.2 [facility] Urea nitrogen/Creatinine [Mass ratio] 13.7 mg/mg 10-20 [facility] Laboratory - Hematology and Cell countsOrdered By: Dr. German on 12-25-2022 Erythrocyte distribution width (RBC) [Entitic vol] 40.0 fL 35.1-43.9 [facility] Erythrocyte distribution width (RBC) [Ratio] 12.6 % 11.6-14.6 [facility] Immature granulocytes/100 WBC (Bld) 0.300 % 0.0-0.9 [facility] Comment on above: IG% - Immature Granu locytes (promyelocytes, myelocytes and metamyelocytes) > 1% indicates that a LEFT SHIFT is Present. MCH (RBC) [Entitic mass] 27.6 pg 27.0-32.0 [facility] Nucleated RBC/100 WBC (Bld) [Ratio] 0 % 0-5 [facility] MCHC Auto (RBC) [Mass/Vol]Or dered By: Dr. German on 12-25-2022 MCHC (RBC) [Mass/Vol] 31.7 g/dL 32-36 [facility] No Panel InformationOrdered By: Dr. German on 12-25-2022 Anti-Nuclear Antibody Screen Negative Negative [facility] Comment on above: Performed at: [address] [id number] Director: Narinder Mendes PhD, Phone: [phone] [employer] [facility] Antibody Not Reportable [facility] Estimated GFR (MDRD) Amer 112 mL/min >60 [facility] Comment on above: GFR Calc Estimated GFR (MDRD) Non-Af Amer 92 mL/min >60 [facility] Comment on above: Non- GFR Calc RIVET FLUNKY Antibody Not Reportable [facility] Platelets bldOrdered By: Dr. German on 12-25-2022 Platelets (Bld) [#/Vol] 218 10*3/uL 150-450 [facility] Serum DNA double strand anti body assay (units/volume)Ordered By: Dr. German on 12-25-2022 DNA double strand Ab Qn (S) Not Reportable [facility] Serum Mera-1 antibody assay (u nits/volume)Ordered By: Dr. German on 12-25-2022 Mera-1 extractable nuclear Ab Qn (S) Not Reportable [facility] Serum Scl-70 extractable nuc lear antibody assay (units/volume)Ordered By: Dr. German on 12-25-2022 SCL-70 extractable nuclear Ab Qn (S) Not Reportable [facility] Serum [place] extractable nucl ear antibody detectionOrdered By: Dr. German on 12-25-2022 [place] extractable nuclear Ab Ql (S) Not Reportable [facility] Serum or plasma albumin catie urement (mass/volume)Ordered By: Dr. German on 12-25-2022 Albumin [Mass/Vol] 3.8 g/dL 3.2-5.0 [facility] Serum or plasma albumin/glob ulin mass ratioOrdered By: Dr. German on 12-25-2022 Albumin/Globulin [Mass ratio] 1.2 {ratio} 0.9-2.4 [facility] Serum or plasma calcium catie urement (mass/volume)Ordered By: Dr. German on 12-25-2022 Calcium [Mass/Vol] 9.2 mg/dL 8.5-10.1 [facility] Serum or plasma creatinine m easurement (mass/volume)Ordered By: Dr. German on 12-25-2022 Creatinine [Mass/Vol] 0.80 mg/dL 0.55-1.02 [facility] Comment on above: The validity of the calculated GFR & GFRAA in patients over 70 years has not been determined. Clinical correlation is essential. Serum or plasma urea nitroge n measurement (mass/volume)Ordered By: Dr. German on 12-25-2022 Urea nitrogen [Mass/Vol] 11 mg/dL 7-18 [facility] Thin prep Papanicolaou smear with manual screeningOrdered By: Dr. German on 12-25-2022 Thin prep Papanicolaou smear with manual screening 22 U/L 15-37 [facility] Thin prep Papanicolaou smear with manual screening 5 5-15 [facility] Culture, urineOrdered By: Kike Khan on 09-27-2022 Bacteria identified Cx Nom (U) Presumptive E. coli [facility] Basophil percentageOrdered B y: Desean Khan on 09-25-2022 Basophil percentage >100 SEEN /hpf 0-5 [facility] Bilirubin Test strip Ql (U)O rdered By: Desean Khan on 09-25-2022 Bilirubin Ql (U) Negative Negative [facility] Ketones Test strip Ql (U)Ord ered By: Desean Khan on 09-25-2022 Ketones Ql (U) 5 mg/dl Negative [facility] Laboratory - Chemistry and C hemistry - challengeon 09-25-2022 HCG ( test) Ql (U) Negative [facility] Bilirubin Ql (U) Negative [facility] Glucose Ql (U) Negative [facility] Ketones Ql (U) Moderate (40+) [facility] pH (U) 7.0 [pH] [facility] Specific gravity (U) [Rel density] 1.020 [facility] Urobilinogen (U) [Mass/Vol] 0.1141348 mg/dL [facility] Laboratory - Hematology and Cell countson 09-25-2022 Hemoglobin Ql (U) Large [facility] Laboratory - Specimen inform ationon 09-25-2022 Clarity (U) Hazy [facility] Color (U) Yellow [facility] Laboratory - Urinalysison Nitrite Ql (U) Negative [facility] Protein Ql (U) Trace [facility] Mucus LM Ql (Urine sed)Order ed By: Desean Khan on 09-25-2022 Mucus Ql (Urine sed) 0 SEEN /hpf [facility] Nitrite Test strip Ql (U)Ord ered By: Desean Khan on 09-25-2022 Nitrite Ql (U) Negative Negative [facility] No Panel Informationon 09-25 Urine Leukocytes Positive [facility] Urine Non-Hemolyzed Blood Large [facility] Protein Test strip Ql (U)Ord ered By: Desean Khan on 09-25-2022 Protein Ql (U) 30 mg/dl Negative [facility] Squamous epithelial cells de tection in urine sediment by light microscopyOrdered By: Desean Khan on 09-25-2022 Epithelial cells.squamous LM Ql (Urine sed) 10-25 SEEN /hpf 5-10 [facility] Urine blood detectionOrdered By: Desean Khan on 09-25-2022 RBC Ql (U) 25 /ul Negative [facility] RBC Ql (U) 0 SEEN /hpf 0-5 [facility] Urine clarityOrdered By: Al Khan on 09-25-2022 Clarity (U) Sl. Cloudy Clear [facility] Urine color determinationOrd ered By: Desean Khan on 09-25-2022 Color (U) Yellow Yellow [facility] Urine glucose detectionOrder ed By: Desean Khan on 09-25-2022 Glucose Ql (U) Normal mg/dl Normal [facility] Urine leukocyte esterase det ection by dipstickOrdered By: Desean Khan on 09-25-2022 Leukocyte esterase Test strip Ql (U) 500 /ul Negative [facility] Urine pHOrdered By: Desean garcia on 09-25-2022 pH (U) 7.0 [pH] 5.0 - 8.0 [facility] Urine sediment bacteria coun t by microscopy (number/high power field)Ordered By: Desean Khan on 09-25-2022 Bacteria LM.HPF (Urine sed) [#/Area] 2 /[HPF] None Seen [facility] Urine specific gravity measu rementOrdered By: Desean Khan on 09-25-2022 Specific gravity (U) [Rel density] 1.010 1.002-1.030 [facility] Urobilinogen Auto test strip Ql (U)Ordered By: Desean Khan on 09-25-2022 Urobilinogen Ql (U) Normal mg/dl Normal [facility] Absolute lymphocyte counton 11-10-2021 Lymphocytes Auto (Unsp spec) [#/Vol] 1.61 10*3/uL 0.83-4.51 [facility] Work Phone: Basophil percentageon 2021 Basophils/100 WBC (Bld) 0.9 % 0-1 [facility] Work Phone: Eosinophils/100 WBC (Bld) 1.6 % 0-5 [facility] Work Phone: Neutrophils (Bld) [#/Vol] 4.6 10*3/uL 2.0-7.7 [facility] Work Phone: Neutrophils/100 WBC (Bld) 67.6 % 47-70 [facility] Work Phone: WBC (Bld) [#/Vol] 6.7 10*3/uL 4.4-11.0 [facility] Work Phone: Blood erythrocytes count (nu mber/volume)on 11-10-2021 RBC (Bld) [#/Vol] 4.34 10*6/uL [facility].2-5.[facility] Blood hemoglobin measurement (mass/volume)on 11-10-2021 Hemoglobin (Bld) [Mass/Vol] 12.3 g/dL 12.0-15.0 [facility] Work Phone: Blood lymphocytes/100 leukoc yteson 11-10-2021 Lymphocytes/100 WBC (Bld) 23.9 % 19-41 [facility] Work Phone: Blood monocytes/100 leukocyt eson 11-10-2021 Monocytes/100 WBC (Bld) 5.6 % 0-10 [facility] Work Phone: Blood platelet mean volumeon 11-10-2021 Platelet mean volume (Bld) [Entitic vol] 11.2 fL 6.2-12.0 [facility] Work Phone: Determination of erythrocyte mean corpuscular volume (MCV)on 11-10-2021 MCV (RBC) [Entitic vol] 86.4 fL 81-99 [facility] Work Phone: Hematocrit Auto (Bld) [Volum e fraction]on 11-10-2021 Hematocrit (Bld) [Volume fraction] 37.5 % 37-47 [facility] Work Phone: [phone] Laboratory - Hematology and Cell countson 11-10-2021 Erythrocyte distribution width (RBC) [Entitic vol] 38.2 fL 35.1-43.9 [facility] Work Phone: [phone] Erythrocyte distribution width (RBC) [Ratio] 12.0 % 11.6-14.6 [facility] Work Phone: [phone] Immature granulocytes/100 WBC (Bld) 0.400 % 0.0-0.9 [facility] Work Phone: [phone] Comment on above: IG% - Immature Granu locytes (promyelocytes, myelocytes and metamyelocytes) > 1% indicates that a LEFT SHIFT is Present. MCH (RBC) [Entitic mass] 28.3 pg 27.0-32.0 [facility] Work Phone: [phone] Nucleated RBC/100 WBC (Bld) [Ratio] 0 % 0-5 [facility] Work Phone: [phone] MCHC Auto (RBC) [Mass/Vol]on 11-10-2021 MCHC (RBC) [Mass/Vol] 32.8 g/dL 32-36 [facility] Work Phone: [phone] Platelets bldon 11-10-2021 Platelets (Bld) [#/Vol] 208 10*3/uL 150-450 [facility] Work Phone: [phone] Absolute lymphocyte counton 09-12-2021 Lymphocytes Auto (Unsp spec) [#/Vol] 1.81 10*3/uL 0.83-4.51 [facility] Work Phone: [phone] Basophil percentageon 2021 Basophils/100 WBC (Bld) 0.4 % 0-1 [facility] Work Phone: [phone] Bilirubin [Mass/Vol] 0.50 mg/dL 0.20-1.00 [facility] Work Phone: [phone] Comment on above: For patients on eltr ombopag therapy, use of Dimension [place] TBIL is not recommended. Chloride [Moles/Vol] 107 mmol/L 98-107 [facility] Work Phone: Eosinophils/100 WBC (Bld) 1.5 % 0-5 [facility] Work Phone: Glucose [Mass/Vol] 79 mg/dL 74-106 [facility] Work Phone: Neutrophils (Bld) [#/Vol] 5.2 10*3/uL 2.0-7.7 [facility] Work Phone: Neutrophils/100 WBC (Bld) 68.1 % 47-70 [facility] Work Phone: Potassium [Moles/Vol] 4.0 mmol/L 3.5-5.1 [facility] Work Phone: Protein [Mass/Vol] 7.8 g/dL 6.4-8.2 [facility] Work Phone: Sodium [Moles/Vol] 138 mmol/L 136-145 [facility] Work Phone: WBC (Bld) [#/Vol] 7.6 10*3/uL 4.4-11.0 [facility] Work Phone: Blood erythrocytes count (nu mber/volume)on 09-12-2021 RBC (Bld) [#/Vol] 4.63 10*6/uL 4.2-5.4 [facility] Work Phone: Blood hemoglobin measurement (mass/volume)on 09-12-2021 Hemoglobin (Bld) [Mass/Vol] 13.3 g/dL 12.0-15.0 [facility] Work Phone: Blood lymphocytes/100 leukoc yteson 09-12-2021 Lymphocytes/100 WBC (Bld) 23.9 % 19-41 [facility] Work Phone: Blood monocytes/100 leukocyt eson 09-12-2021 Monocytes/100 WBC (Bld) 5.8 % 0-10 [facility] Work Phone: [phone] Blood platelet mean volumeon 09-12-2021 Platelet mean volume (Bld) [Entitic vol] 11.2 fL 6.2-12.0 [facility] Work Phone: [phone] Determination of erythrocyte mean corpuscular volume (MCV)on 09-12-2021 MCV (RBC) [Entitic vol] 86.6 fL 81-99 [facility] Work Phone: [phone] Hematocrit Auto (Bld) [Volum e fraction]on 09-12-2021 Hematocrit (Bld) [Volume fraction] 40.1 % 37-47 [facility] Work Phone: Laboratory - Chemistry and C hemistry - challengeon 09-12-2021 ALP [Catalytic activity/Vol] 60 U/L 45-117 [facility] Work Phone: [phone] ALT [Catalytic activity/Vol] 26 U/L 13-56 [facility] Work Phone: [phone] CO2 [Moles/Vol] 26.0 mmol/L 21.0-32.0 [facility] Work Phone: Cobalamin (Vitamin B12) [Mass/Vol] 336 pg/mL 211-911 [facility] Work Phone: [phone] Free T4 [Mass/Vol] 0.92 ng/dL 0.76-1.46 [facility]: [phone] Globulin (S) [Mass/Vol] 3.6 g/dL 2.2-4.2 [facility] Work Phone: [phone] Urea nitrogen/Creatinine [Mass ratio] 15.1 mg/mg 10-20 [facility] Work Phone: [phone] Laboratory - Hematology and Cell countson 09-12-2021 Erythrocyte distribution width (RBC) [Entitic vol] 39.2 fL 35.1-43.9 [facility] Work Phone: [phone] Erythrocyte distribution width (RBC) [Ratio] 12.4 % 11.6-14.6 [facility] Work Phone: [phone] Immature granulocytes/100 WBC (Bld) 0.300 % 0.0-0.9 [facility] Work Phone: Comment on above: IG% - Immature Granu locytes (promyelocytes, myelocytes and metamyelocytes) > 1% indicates that a LEFT SHIFT is Present. MCH (RBC) [Entitic mass] 28.7 pg 27.0-32.0 [facility] Work Phone: [phone] Nucleated RBC/100 WBC (Bld) [Ratio] 0 % 0-5 [facility] Work Phone: MCHC Auto (RBC) [Mass/Vol]on 09-12-2021 MCHC (RBC) [Mass/Vol] 33.2 g/dL 32-36 [facility] Work Phone: No Panel Informationon 09-12 Estimated GFR (MDRD) Amer 114 mL/min >60 [facility] Work Phone: [phone] Comment on above: GFR Calc Estimated GFR (MDRD) Non-Af Amer 94 mL/min >60 [facility] Work Phone: [phone] Comment on above: Non- GFR Calc Thyroid Stimulating Hormone (TSH) 1.18 uIU/mL 0.358-3.74 [facility] Work Phone: Platelets bldon 09-12-2021 Platelets (Bld) [#/Vol] 219 10*3/uL 150-450 [facility] Work Phone: [phone] Serum or plasma albumin catie urement (mass/volume)on 09-12-2021 Albumin [Mass/Vol] 4.2 g/dL 3.2-5.0 [facility] Work Phone: [phone] Serum or plasma albumin/glob ulin mass ratioon 09-12-2021 Albumin/Globulin [Mass ratio] 1.2 {ratio} 0.9-2.4 [facility] Work Phone: [phone] Serum or plasma calcium catie urement (mass/volume)on 09-12-2021 Calcium [Mass/Vol] 8.9 mg/dL 8.5-10.1 [facility] Work Phone: Serum or plasma creatinine m easurement (mass/volume)on 09-12-2021 Creatinine [Mass/Vol] 0.80 mg/dL 0.55-1.02 [facility] Work Phone: Comment on above: The validity of the calculated GFR & GFRAA in patients over 70 years has not been determined. Clinical correlation is essential. Serum or plasma urea nitroge n measurement (mass/volume)on 09-12-2021 Urea nitrogen [Mass/Vol] 12 mg/dL 7-18 [facility] Work Phone: Thin prep Papanicolaou smear with manual screeningon 09-12-2021 Thin prep Papanicolaou smear with manual screening 16 U/L 15-37 [facility] Work Phone: Thin prep Papanicolaou smear with manual screening 5 5-15 [facility] Work Phone: Vital Signs Date Time Vital Sign Value Performing Clinician Faci lity 03-08-2025 08:05-0400 Body height 172.[address] Pablito German MD Work Phone: [facility] 03-08-2025 08:05-0400 Body mass index (BMI) [Ratio] 26.2 kg/m2 Dr. Pablito German MD Work Phone: [facility] 03-08-2025 08:05-0400 Body weight 78.[address] Pablito German MD Work Phone: [facility] 03-08-2025 08:05-0400 Diastolic blood pressure 71 mm[Hg] Dr. Pablito German MD Work Phone: [facility] 03-08-2025 08:05-0400 Systolic blood pressure 106 mm[Hg] Dr. Pablito German MD Work Phone: [facility] 02-23-2025 07:42-0400 Body height 172.[address] Pablito German MD Work Phone: [facility] 02-23-2025 07:42-0400 Body mass index (BMI) [Ratio] 26.2 kg/m2 Dr. Pablito German MD Work Phone: [facility] 02-23-2025 07:42-0400 Body temperature 96.6 [degF] Dr. Pablito German MD Work Phone: [facility] 02-23-2025 07:42-0400 Body weight 78.[address] Pablito German MD Work Phone: [facility] 02-23-2025 07:42-0400 Diastolic blood pressure 64 mm[Hg] Dr. Pablito German MD Work Phone: [facility] 02-23-2025 07:42-0400 Heart rate 86 /min Dr. Pablito German MD Work Phone: [facility] 02-23-2025 07:42-0400 Respiratory rate 16 /min Dr. Pablito German MD Work Phone: [facility] 02-23-2025 07:42-0400 SaO2% (BldA) [Mass fraction] 99 % Dr. Pablito German MD Work Phone: [facility] 02-23-2025 07:42-0400 Systolic blood pressure 102 mm[Hg] Dr. Pablito German MD Work Phone: [facility] 10-19-2023 13:57-0400 Body height 172.[address] Pablito German Work Phone: [facility] 10-19-2023 13:57-0400 Body mass index (BMI) [Ratio] 28 kg/m2 Dr. Pablito German Work Phone: [facility] 10-19-2023 13:57-0400 Body weight 83.[address] Pablito German Work Phone: [facility] 10-19-2023 13:57-0400 Diastolic blood pressure 70 mm[Hg] Dr. Pablito German Work Phone: [facility] 10-19-2023 13:57-0400 Systolic blood pressure 104 mm[Hg] Dr. Pablito German Work Phone: [facility] 10-07-2023 15:00-0400 Diastolic blood pressure 66 mm[Hg] Dr. Pablito German Work Phone: [facility] 10-07-2023 15:00-0400 Heart rate 79 /min Dr. Pablito German Work Phone: [facility] 10-07-2023 15:00-0400 Systolic blood pressure 113 mm[Hg] Dr. Pablito German Work Phone: [facility] 10-07-2023 14:59-0400 Body temperature 99.4 [degF] Dr. Pablito German Work Phone: [facility] 10-07-2023 14:59-0400 Respiratory rate 16 /min Dr. Pablito German Work Phone: [facility] 10-07-2023 13:51-0400 Body height 172.[address] Pablito German Work Phone: [facility] 10-07-2023 13:51-0400 Body mass index (BMI) [Ratio] 27.6 kg/m2 Dr. Pablito German Work Phone: [facility] 10-07-2023 13:51-0400 Body weight 82.[address] Pablito German Work Phone: [facility] 09-20-2023 15:45-0400 Body mass index (BMI) [Ratio] 26.9 kg/m2 Dr. Pablito German Work Phone: [facility] 09-20-2023 15:45-0400 Body weight 80.[address] Pablito German Work Phone: [facility] 09-20-2023 15:45-0400 Diastolic blood pressure 72 mm[Hg] Dr. Pablito German Work Phone: [facility] 09-20-2023 15:45-0400 Systolic blood pressure 114 mm[Hg] Dr. Pablito German Work Phone: [facility] 08-24-2023 15:52-0500 Body height 172.[address] Pablito German Work Phone: [facility] 08-24-2023 15:52-0500 Body mass index (BMI) [Ratio] 25.5 kg/m2 Dr. Pablito German Work Phone: [facility] 08-24-2023 15:52-0500 Body weight 76.[address] Pablito German Work Phone: [facility] 08-24-2023 15:52-0500 Diastolic blood pressure 76 mm[Hg] Dr. Pablito German Work Phone: [facility] 08-24-2023 15:52-0500 Systolic blood pressure 117 mm[Hg] Dr. Pablito German Work Phone: [facility] 07-28-2023 16:02-0500 Body mass index (BMI) [Ratio] 25 kg/m2 Dr. Pablito German Work Phone: [facility] 07-28-2023 16:02-0500 Body weight 74.[address] Pablito German Work Phone: [facility] 07-28-2023 16:02-0500 Diastolic blood pressure 78 mm[Hg] Dr. Pablito German Work Phone: [facility] 07-28-2023 16:02-0500 Systolic blood pressure 115 mm[Hg] Dr. Pablito German Work Phone: [facility] 07-01-2023 15:52-0500 Body mass index (BMI) [Ratio] 25 kg/m2 Dr. Pablito German Work Phone: [facility] 07-01-2023 15:52-0500 Body weight 74.[address] Pablito German Work Phone: [facility] 07-01-2023 15:52-0500 Diastolic blood pressure 80 mm[Hg] Dr. Pablito German Work Phone: [facility] 07-01-2023 15:52-0500 Systolic blood pressure 112 mm[Hg] Dr. Pablito German Work Phone: [facility] 06-14-2023 15:44-0500 Body height 172.[address] Pablito German Work Phone: [facility] 06-14-2023 15:44-0500 Body mass index (BMI) [Ratio] 24.8 kg/m2 Dr. Pablito German Work Phone: [facility] 06-14-2023 15:31-0500 Body weight 74.[address] Pablito German Work Phone: [facility] 06-14-2023 15:31-0500 Diastolic blood pressure 79 mm[Hg] Dr. Pablito German Work Phone: [facility] 06-14-2023 15:31-0500 Systolic blood pressure 111 mm[Hg] Dr. Pablito German Work Phone: [facility] 06-04-2023 19:15-0500 Body height 172.72 cm [facility] 06-04-2023 19:15-0500 Body mass index (BMI) [Ratio] 25 kg/m2 [facility] 06-04-2023 19:15-0500 Body temperature 98 [degF] [facility] 06-04-2023 19:15-0500 Body weight 74.64 kg [facility] 06-04-2023 19:15-0500 Diastolic blood pressure 90 mm[Hg] [facility] 06-04-2023 19:15-0500 Heart rate 98 /min [facility] 06-04-2023 19:15-0500 Respiratory rate 18 /min [facility] 06-04-2023 19:15-0500 SaO2% (BldA) [Mass fraction] 98 % [facility] 06-04-2023 19:15-0500 Systolic blood pressure 132 mm[Hg] [facility] 01-25-2023 17:22-0400 Body height 172.[address] Pablito German Work Phone: [facility] 01-25-2023 17:22-0400 Body mass index (BMI) [Ratio] 24.3 kg/m2 Dr. Pablito German Work Phone: [facility] 01-25-2023 17:22-0400 Body temperature 98.9 [degF] Dr. Pablito German Work Phone: [facility] 01-25-2023 17:22-0400 Body weight 72.[address] Pablito German Work Phone: [facility] 01-25-2023 17:22-0400 Heart rate 90 /min Dr. Pablito German Work Phone: [facility] 01-25-2023 17:22-0400 Respiratory rate 16 /min Dr. Pablito German Work Phone: [facility] 01-25-2023 17:22-0400 SaO2% (BldA) [Mass fraction] 98 % Dr. Pablito German Work Phone: [facility] 12-25-2022 13:25-0400 Body height 172.[address] Pablito German Work Phone: [facility] 12-25-2022 13:25-0400 Body mass index (BMI) [Ratio] 24.2 kg/m2 Dr. Pablito German Work Phone: [facility] 12-25-2022 13:25-0400 Body temperature 98.1 [degF] Dr. Pablito German Work Phone: [facility] 12-25-2022 13:25-0400 Body weight 72.[address] Pablito German Work Phone: [facility] 12-25-2022 13:25-0400 Diastolic blood pressure 80 mm[Hg] Dr. Pablito German Work Phone: [facility] 12-25-2022 13:25-0400 Heart rate 99 /min Dr. Pablito German Work Phone: [facility] 12-25-2022 13:25-0400 Respiratory rate 18 /min Dr. Pablito German Work Phone: [facility] 12-25-2022 13:25-0400 SaO2% (BldA) [Mass fraction] 100 % Dr. Pablito German Work Phone: [facility] 12-25-2022 13:25-0400 Systolic blood pressure 116 mm[Hg] Dr. Pablito German Work Phone: [facility] 11-29-2022 10:54-0400 Body mass index (BMI) [Ratio] 23.9 kg/m2 Dr. Pablito German Work Phone: [facility] 11-29-2022 10:54-0400 Body temperature 98.5 [degF] Dr. Pablito German Work Phone: [facility] 11-29-2022 10:54-0400 Body weight 71.[address] Pablito German Work Phone: [facility] 11-29-2022 10:54-0400 Diastolic blood pressure 62 mm[Hg] Dr. Pablito German Work Phone: [facility] 11-29-2022 10:54-0400 Heart rate 114 /min Dr. Pablito German Work Phone: [facility] 11-29-2022 10:54-0400 Respiratory rate 16 /min Dr. Pablito German Work Phone: [facility] 11-29-2022 10:54-0400 SaO2% (BldA) [Mass fraction] 99 % Dr. Pablito German Work Phone: [facility] 11-29-2022 10:54-0400 Systolic blood pressure 108 mm[Hg] Dr. Pablito German Work Phone: [facility] 10-21-2022 10:56-0400 Body height 172.[address] Pablito German Work Phone: [facility] 10-21-2022 10:56-0400 Body mass index (BMI) [Ratio] 24 kg/m2 Dr. Pablito German Work Phone: [facility] 10-21-2022 10:56-0400 Body temperature 98.8 [degF] Dr. Pablito German Work Phone: [facility] 10-21-2022 10:56-0400 Body weight 71.[address] Pablito German Work Phone: [facility] 10-21-2022 10:56-0400 Diastolic blood pressure 78 mm[Hg] Dr. Pablito German Work Phone: [facility] 10-21-2022 10:56-0400 Heart rate 101 /min Dr. Pablito German Work Phone: [facility] 10-21-2022 10:56-0400 Respiratory rate 16 /min Dr. Pablito German Work Phone: [facility] 10-21-2022 10:56-0400 SaO2% (BldA) [Mass fraction] 99 % Dr. Pablito German Work Phone: [facility] 10-21-2022 10:56-0400 Systolic blood pressure 104 mm[Hg] Dr. Pablito German Work Phone: [facility] 10-09-2022 12:57-0400 Body mass index (BMI) [Ratio] 24.3 kg/m2 Dr. Pablito German Work Phone: [facility] 10-09-2022 12:57-0400 Body weight 72.[address] Pablito German Work Phone: [facility] 10-09-2022 12:57-0400 Diastolic blood pressure 75 mm[Hg] Dr. Pablito German Work Phone: [facility] 10-09-2022 12:57-0400 Systolic blood pressure 110 mm[Hg] Dr. Pablito German Work Phone: [facility] 09-25-2022 08:44-0400 Body temperature 97.7 [degF] Dr. Pablito German Work Phone: [facility] 09-25-2022 08:44-0400 Diastolic blood pressure 56 mm[Hg] Dr. Pablito German Work Phone: [facility] 09-25-2022 08:44-0400 Heart rate 101 /min Dr. Pablito German Work Phone: [facility] 09-25-2022 08:44-0400 Respiratory rate 16 /min Dr. Pablito German Work Phone: [facility] 09-25-2022 08:44-0400 SaO2% (BldA) [Mass fraction] 99 % Dr. Pablito German Work Phone: [facility] 09-25-2022 08:44-0400 Systolic blood pressure 92 mm[Hg] Dr. Pablito German Work Phone: [facility] 11-10-2021 15:40-0400 Body height 172.72 cm No Primary Care Physician [facility] Work Phone: 11-10-2021 15:40-0400 Body mass index (BMI) [Ratio] 22.5 kg/m2 No Primary Care Physician [facility] Work Phone: 11-10-2021 15:40-0400 Body temperature 98.8 [degF] No Primary Care Physician [facility] Work Phone: 11-10-2021 15:40-0400 Body weight 67.13 kg No Primary Care Physician [facility] Work Phone: 11-10-2021 15:40-0400 Diastolic blood pressure 68 mm[Hg] No Primary Care Physician [facility] Work Phone: 11-10-2021 15:40-0400 Heart rate 94 /min No Primary Care Physician [facility] Work Phone: 11-10-2021 15:40-0400 Respiratory rate 14 /min No Primary Care Physician [facility] Work Phone: 11-10-2021 15:40-0400 SaO2% (BldA) [Mass fraction] 99 % No Primary Care Physician [facility] Work Phone: 11-10-2021 15:40-0400 Systolic blood pressure 102 mm[Hg] No Primary Care Physician [facility] Work Phone: 09-29-2021 14:28-0400 Body mass index (BMI) [Ratio] 22.5 kg/m2 No Primary Care Physician [facility] Work Phone: 09-29-2021 14:28-0400 Body weight 67.13 kg No Primary Care Physician [facility] Work Phone: 09-29-2021 14:28-0400 Diastolic blood pressure 76 mm[Hg] No Primary Care Physician [facility] Work Phone: 09-29-2021 14:28-0400 Systolic blood pressure 108 mm[Hg] No Primary Care Physician [facility] Work Phone: 09-11-2021 17:09-0500 Body mass index (BMI) [Ratio] 22.8 kg/m2 No Primary Care Physician [facility] Work Phone: 09-11-2021 17:09-0500 Body temperature 98.8 [degF] No Primary Care Physician [facility] Work Phone: 09-11-2021 17:09-0500 Body weight 68.03 kg No Primary Care Physician [facility] Work Phone: 09-11-2021 17:09-0500 Diastolic blood pressure 64 mm[Hg] No Primary Care Physician [facility] Work Phone: 09-11-2021 17:09-0500 Heart rate 72 /min No Primary Care Physician [facility] Work Phone: 09-11-2021 17:09-0500 Respiratory rate 14 /min No Primary Care Physician [facility] Work Phone: 09-11-2021 17:09-0500 SaO2% (BldA) [Mass fraction] 99 % No Primary Care Physician [facility] Work Phone: 09-11-2021 17:09-0500 Systolic blood pressure 112 mm[Hg] No Primary Care Physician [facility] Work Phone: Encounters Encounter Date Encounter Type Care Provider Facility Start: 03-08-2025 End: 03-08-2025 ambulatory [facility] Facility:[facility] Start: 03-08-2025 End: 03-08-2025 Patient encounter procedure Malika Denise CNM -[facility] Work Phone: Start: 03-08-2025 End: 03-08-2025 Patient encounter status Malika Howie [facility] Start: 02-23-2025 Encounter for genera l adult medical examination without abnormal findings Pablito German [facility] Start: 02-23-2025 End: 02-23-[address] Pablito German MD -[facility] Work Phone: Start: 02-23-2025 End: 02-23-[address] Pablito German MD [facility] Start: 02-23-2025 End: 02-23-[address] Pablito German MD Work Phone: -[facility] Start: 04-04-2024 End: 04-04-2024 ambulatory Pablito German Facility:[facility] Start: 03-23-2024 End: 03-23-2024 ambulatory Pablito German Facility:[facility] Start: 03-02-2024 End: 03-02-2024 ambulatory Malika Denise Facility:[facility] Start: 01-04-2024 End: 01-04-2024 ambulatory [facility] Start: 12-16-2023 End: 12-16-2023 ambulatory [facility] Start: 11-16-2023 End: 11-16-2023 ambulatory [facility] Start: 10-26-2023 End: 10-26-2023 ambulatory [facility] Start: 10-19-2023 End: 10-19-[address] Pablito German Work Phone: [facility] Work Phone: Start: 10-19-2023 End: 10-19-[address] Pablito German Work Phone: [facility] Work Phone: Start: 10-07-2023 Non-patient / Non-visit Dr. Fifi German Work Phone: [facility] Start: 10-07-2023 End: 10-07-[address] Pablito German Work Phone: [facility] Work Phone: Start: 10-07-2023 End: 10-07-[address] Pablito German Work Phone: [facility] Work Phone: Start: 09-30-2023 End: 09-30-2023 ambulatory PABLITO Daniel [facility] Start: 09-20-2023 End: 09-20-[address] Pablito German Work Phone: [facility] Work Phone: Start: 08-31-2023 End: 08-31-2023 ambulatory PABLITO Daniel [facility] Start: 08-24-2023 End: 08-24-[address] Pablito German Work Phone: [facility] Work Phone: Start: 08-24-2023 End: 08-24-[address] Pablito German Work Phone: [facility] Work Phone: Start: 07-28-2023 End: 07-28-[address] Pablito German Work Phone: [facility] Work Phone: Start: 07-01-2023 End: 07-01-[address] Pablito German Work Phone: [facility] Work Phone: Start: 06-14-2023 End: 06-14-[address] Pablito German Work Phone: [facility] Work Phone: Start: 06-14-2023 End: 06-14-[address] Pablito German Work Phone: [facility]-Laboratory, Specimen Work Phone: Start: 06-14-2023 End: 06-14-[address] Pablito German Work Phone: [facility] Work Phone: Start: 06-10-2023 End: 06-10-[address] Pablito German Work Phone: [facility]Ultrasound, H Work Phone: Start: 06-08-2023 Non-patient / Non-visit Dr. Fifi German Work Phone: [facility] Work Phone: Start: 06-08-2023 Non-patient / Non-visit Dr. Fifi German Work Phone: [facility] Work Phone: Start: 06-04-2023 End: 06-04-2023 Emergency department patient visit [facility]Emergency [facility] Work Phone: Start: 01-26-2023 End: 01-26-[address] Pablito German Work Phone: [facility] Work Phone: Start: 01-26-2023 End: 01-26-[address] Pablito [facility] Work Phone: [facility] [facility] Work Phone: Start: 01-25-2023 End: 01-25-[address] Pablito German Work Phone: [facility] Work Phone: Start: 12-25-2022 End: 12-25-[address] Pablito German Work Phone: [facility] Work Phone: Start: 12-25-2022 End: 12-25-[address] Pablito German Work Phone: [facility] Start: 11-29-2022 End: 11-29-[address] Pablito German Work Phone: [facility] Start: 10-21-2022 End: 10-21-[address] Pablito German Work Phone: [facility] Start: 10-16-2022 End: 10-16-[address] Pablito German Work Phone: [facility] Work Phone: Start: 10-16-2022 End: 10-16-[address] Pablito German Work Phone: [facility] Start: 10-09-2022 End: 10-09-[address] Pablito German Work Phone: [facility] Start: 09-25-2022 End: 09-25-[address] Pablito German Work Phone: [facility] Work Phone: Start: 09-25-2022 End: 09-25-[address] Pablito German Work Phone: [facility]-Laboratory, Specimen Start: 09-25-2022 End: 09-25-[address] Pablito German Work Phone: [facility] Start: 06-09-2022 End: 06-09-[address] Pablito German Work Phone: [facility] Start: 11-10-2021 End: 11-10-2021 Patient encounter procedure No Primary Care Physician [facility] Start: 09-29-2021 End: 09-29-2021 Patient encounter procedure No Primary Care Physician [facility] Start: 09-12-2021 End: 09-12-2021 Patient encounter procedure No Primary Care Physician [facility], [facility] Start: 09-11-2021 End: 09-11-2021 Patient encounter procedure No Primary Care Physician [facility] Procedures Date Procedure Procedure Detail Performing Clinician Start: 06-14-[address] Baljinder German Work Phone: Start: 06-10-2023 Transvaginal obstetr ic ultrasonography Dr. Pablito German Work Phone: Start: 06-04-2023 Transvaginal obstetr ic ultrasonography Start: 01-26-[address] Baljinder German Work Phone: Start: 10-16-[address] Florinda German Work Phone: Start: 10-16-[address] Pablito German Work Phone: Urine culture Dr. Pablito German Work Phone: Plan of Treatment Date Care Activity Detail Author Start: 10-07-2023 Nonstress test [facility] Start: 10-07-2023 Obstetric monitoring [facility] Start: 10-07-2023 Vital signs measurements [facility] Start: 10-07-2023 [facility] Start: 10-07-2023 Patient discharge [facility] Start: 06-04-2023 [facility] Start: 10-21-2022 Patient referral [facility] Work Phone: Start: 09-11-2021 Patient referral [facility] Work Phone: CBC W Auto Different ial panel - Blood [facility] CBC W Auto Different ial panel - Blood [facility] Comprehensive metabo lic 1999 panel - Serum or Plasma [facility] Glucose [Mass/volume ] in Serum or Plasma --1 hour post 50 g glucose PO [facility] HIV 1+2 Ab+HIV1 p24 Ag [Presence] in Serum or Plasma by Immunoassay [facility] Lipid 1995 panel - S luis or Plasma [facility] Patient Education [facility] Work Phone: Patient referral [facility] Work Phone: Procedure [facility] Prolactin [Mass/volu me] in Serum or Plasma [facility] Thyroid stimulating hormone measurement [facility] Treponema sp Ab [Pre sence] in Serum [facility] Immunizations Immunization Date Immunization Notes [facility] tetanus toxoid, redu sharmin diphtheria toxoid, and acellular pertussis vaccine, adsorbed Dr. Pablito German MD Work Phone: [facility] 06-09-2022 influenza, injectabl e, quadrivalent, preservative free [facility] 06-09-2022 influenza, seasonal, injectable Dr. Pablito German Work Phone: [facility] 05-23-2021 Covid (Moderna) No Primary C are Physician [facility] 05-19-2021 influenza, injectabl e, quadrivalent, preservative free [facility] 05-19-2021 influenza, seasonal, injectable No Primary Care Physician [facility] 07-31-2020 hepatitis B vaccine, adult dosage No Primary Care Physician [facility] Payers Date Payer Category Payer Self-pay [id number] 2023 Unknown [id number] 1995 Unknown [id number] 2.16. [id number] 1997 Unknown [id number] 2.16. [id number] 1997 Unknown [id number] 2.16. [id number] 1997 Unknown [id number] 2.16. [id number] 1997 Unknown [id number] 2.16. [id number] 1995 Unknown [id number] 2.16. [id number] Unknown [id number] Unknown [id number] 2.16.8 [id number] Unknown [id number] 2.16.8 [id number] Unknown [id number] 2.16.8 [id number] Unknown [id number] 2.16.8 [id number] Unknown [id number] 2.16.8 [id number] Social History Date Type Detail Facility Start: 11-10-2021 End: 10-19-2023 Tobacco smoking status OHIS Unknown if ever smoked [facility] Start: 1995 Sex Assigned At Female W [facility] Start: 01-16-2024 [facility] Medical Equipment Procedure Code Equipment Code Equipment Origin al Text Equipment Identifier Dates Laparoscopy, diagnostic Plant polysaccharide haemostatic agent, bioabsorbable [id number] FDA Start: 04-29-2021 Goals Date Patient Goal Desired Activity /State Clinical Notes 10-26-2023 to 02-23-2025 Note Date & Type Note Facility 02-23-2025 Evaluation note Diagnosis Onset Date Resolution Dermatitis acute February 23, 025 7:34am Preventative health care acute February 23, 2025 7:34am Anxiety and depression chronic Au gela 2024 7:34am De Quervain's tenosynovitis, right chronic February 7:34am Encounter for routine gynecological examination noneactive March 08 7:59am [employer] Work Phone: 1([phone]) 890-238604-16-2024 NoteMoobed Olson is a new patient who's primary care provider is Pablito German MD here for evaluation of heart. Chief Complaint Patient presents with ECHO echo History of Presenting Problem HPI Thank you for consulting us regarding Romaine Olson. She is referred to the cardiology clinic at [facility] for evaluation of the heart. I saw this patient in the echocardiogram clinic on 10/26/2023. Patient was referred to the echocardiographic clinic for a echocardiogram since there was IVF/increased velocity across aortic valve on OB ultrasound. Cardiac ROS Review of Systems See the full note Past Medical History History reviewed. No pertinent past medical history. History reviewed. No pertinent surgical history. Medications: No outpatient encounter medications on file as of 10/26/2023. No facility-administered encounter medications on file as of 10/26/2023. Allergies: Allergies Allergen Reactions Amoxicillin Hives Family Medical History: Family History Problem Relation Age of Onset Breast Cancer Mother Social History: Social History Socioeconomic History Marital status: Spouse name: None Number of children: None Years of education: None Highest education level: None Tobacco Use Smoking status: Never Smokeless tobacco: Never Substance and Sexual Activity Alcohol use: Never Drug use: Never Physical Exam: Vitals: 10/26/23 0813 BP: 116/68 Growth %ile SmartLinks can only be used for patients less than 20 years old. Weight - Scale: 83.5 kg Facility age limit for growth %osmel is 20 years. Height: 172.7 cm Facility age limit for growth %osmel is 20 years. Physical Exam Patient is here for the echocardiogram. Physical exam was deferred. Studies: echocardiogram: Position; Vertex. 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 Atrioventricular and ventriculoarterial concordance seen. Atria: Normal left and right atrial size. There was a patent foramen ovale, with [id number] shunt. Tricuspid valve: Normal tricuspid valve. There was normal Doppler across the tricuspid valve. Mitral valve: Normal mitral valve. There was normal Doppler across the mitral valve. Right ventricle: There was normal size and systolic function. Left ventricle: There was normal size and systolic function. Aortic valve: Normal aortic valve. There was normal Doppler across the aortic valve seen. Pulmonary valve: Normal pulmonary valve. There was normal Doppler across the pulmonary valve seen. Ventricular septum: There was no obvious ventricular septal defect seen. Main pulmonary artery: Normal main pulmonary artery. Pulmonary arteries: Good size branch pulmonary arteries. Pulmonary veins: There were at least 2/4 pulmonary veins seen entering into the left atrium. Systemic venous return: There was normal systemic venous return seen. Aortic arch: Patent aortic arch. Ductal arch: Patent Ductal arch. 3-vessel view: There was normal 3-vessel view. Ductus venosus: There was normal flow pattern seen in the ductus venosus. Umbilical artery and umbilical vein. There was normal pulse Doppler in umbilical artery and umbilical vein. Rhythm: There appeared to be a sinus rhythm. There was no arrhythmia noted. Impression and recommendations. 1) Normal velocity across the aortic valve. Normal echocardiogram. 2) I have discussed the limitations of echocardiographic examination, that is likely to miss small ventricular septal defects as well as mild semilunar valve stenosis. Patent foramen ovale and patent ductus arteriosus are normal findings in utero. Coarctation of aorta is difficult to diagnose pre natally in the presence of patent ductus arteriosus. 3) I have also discussed echocardiographic findings in detail including circulation, pathophysiology of Patent foramen ovale and Patent ductus arteriosus, prognosis, medical and surgical treatments, follow up echocardiograms and follow ups. 4) I would like to see in cardiology clinic here at [facility], 1-2 months after the or earlier if cardiac condition/status changes in any way. Counseling and/or coordination of care was greater than 35 minutes which is more than 50% of the total time of 60 minutes spent on the encounter. Karla Bentley MD [facility]* Diagnosis Onset Date Resolution Status Attention deficit disorder (ADD) in adult acute Anxiety and depression chron ic Asthma chronic Endometriosis determined by laparoscopy acute Abnormal bleeding in menstrual cycle acute Endometriosis determined by laparoscopy acute Heavy menstrual bleeding acu te [facility] Work Phone: Evaluation note* Diagnosis Onset Date Resolution Status Urinary tract infection none active [facility] Work Phone: Evaluation note* Diagnosis Onset Date Resolution Status Urinary tract infection none active Endometriosis determined by laparoscopy acute Infertility acute Neck pain acute Shoulder pain acute Upper back pain on left side acute [facility] Work Phone: Evaluation note* Diagnosis Onset Date Resolution Status Urinary tract infection none active Endometriosis determined by laparoscopy acute Infertility acute Neck pain acute Shoulder pain acute Upper back pain on left side acute URI (upper respiratory infection) acute Dermatitis acute Anxiety and depression chron ic Sinusitis chronic [facility] Work Phone: Evaluation note* Diagnosis Onset Date Resolution Status Endometriosis determined by laparoscopy acute Infertility acute Neck pain acute Shoulder pain acute Upper back pain on left side acute URI (upper respiratory infection) acute Dermatitis acute Anxiety and depression chron ic Sinusitis chronic Dysuria acute [facility] Work Phone: Evaluation noteNo assessment information available [facility] Work Phone: evaluation note* Diagnosis Onset Date Resolution Status acute resulting from in vitro fertilization acute Supervision of high-risk acute Anxiety and depression chron ic Asthma chronic [facility] Work Phone: Evaluation note* Diagnosis Onset Date Resolution Status acute resulting from in vitro fertilization acute Supervision of high-risk acute Anxiety and depression chron ic Asthma chronic acute resulting from in vitro fertilization acute Supervision of high-risk acute Anxiety and depression chron ic Asthma chronic acute resulting from in vitro fertilization acute Supervision of high-risk acute Anxiety and depression chron ic Asthma chronic acute resulting from in vitro fertilization acute Supervision of high-risk acute Anxiety and depression chron ic Asthma chronic [facility] Work Phone: Evaluation note* Diagnosis Onset Date Resolution Status acute resulting from in vitro fertilization acute Supervision of high-risk acute Anxiety and depression chron ic Asthma chronic acute resulting from in vitro fertilization acute Supervision of high-risk acute Anxiety and depression chron ic Asthma chronic acute resulting from in vitro fertilization acute Supervision of high-risk acute Anxiety and depression chron ic Asthma chronic acute resulting from in vitro fertilization acute Supervision of high-risk acute Anxiety and depression chron ic Asthma chronic acute resulting from in vitro fertilization acute Supervision of high-risk acute Anxiety and depression chron [facility] Work Phone: Evaluation note* Diagnosis Onset Date Resolution Status acute resulting from in vitro fertilization acute Supervision of high-risk acute Anxiety and depression chron ic Asthma chronic acute resulting from in vitro fertilization acute Supervision of high-risk acute Anxiety and depression chron ic Asthma chronic acute resulting from in vitro fertilization acute Supervision of high-risk acute Anxiety and depression chron ic Asthma chronic acute resulting from in vitro fertilization acute Supervision of high-risk acute Anxiety and depression chron ic Abnormal echocardiogra m affecting antepartum care of mother acute acute resulting from in vitro fertilization acute Supervision of high-risk acute Anxiety and depression chron [facility] Work Phone: Hospital Discharge instructionsAmbulatory Orders* PT Referral Location: None [facility] Work Phone: Hospital Discharge instructionsAmbulatory Orders* Dermatology Location: None [facility] Work Phone: Progress note Author Yojana Roe [facility] October 07, 2023 2:54pm Note Date/Time October 07, 2023 2:5 4pm [facility] Medical Records Department [address] [place] [address] OB Triage Progress Note 10/07/23 1453 MR#: [id number] Acct: [id number] Name: ROMAINE OLSON GORGE Rep #:[id number] : 1995 27 From: Yojana armstrong MD PCP: Dr. Pablito German MD Status:R EG CLI Y DOS: Location: [id number] Progress Notes Date of Service: 10/07/23 Progress Note: labs done for TRINH and rule out labor negative workup dc home Laboratory Studies: Laboratory Tests 10/07/23 10/07/23 Range/Units 14:05 14:05 WBC 11.7 H (4.4-11.0) K/mm3 RBC 3.99 L (4.2-5.4) M/mm3 Hgb 11.0 L (12.0-15.0) g/dL Hct 34.8 L (37-47) % MCV 87.2 (81-99) fL MCH 27.6 (27.0-32.0) pg MCHC 31.6 L (32-36) g/dL RDW Std Deviation 44.2 H (35.1-43.9) fl RDW Coeff of Gulshan 13.9 (11.6-14.6) % Plt Count 196 (150-450) K/mm3 MPV 11.1 (6.2-12.0) fl Creatinine 0.58 (0.55-1.02) mg/dL Estim Creat Clear Calc 166.83 ml/min Est GFR (MDRD) Af Amer 163 (>60) mL/min Est GFR (MDRD) Non-Af 135 (>60) mL/min Uric Acid 3.8 (2.6-6.0) mg/dL AST 17 (15-37) U/L ALT 21 (13-56) U/L Lactate Dehydrogenase Cancelled 160 (84-246) U/L U Random Total Protein 15.4 H (<11.9) mg/dL Urine Creatinine 153.00 (NO RANGE EST.) mg/dL Protein/Creatinin Ratio 101 (0-200) mg/g CRE 10/07/23 1454 <Electronically signed by Yojana clifford MD> Date _ Yojana Roe MD Cosigner Signature (if applicable): Date CC: Dr. Pablito German MD; Dr. 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 Urinary tract infection Unspecified symptoms and signs involving the genit Reason for Visit Urinary tract infect ion Chief Complaint Urinary tract infect ion Unspecified symptoms and signs involving the genit infertility AUB neck and shoulder pain Reason for Visit Urinary tract infect ion Endometriosis determined by laparoscopy Infertility Neck pain Shoulder pain Upper back pain on left side Chief Complaint Urinary tract infect ion Unspecified symptoms and signs involving the genit infertility AUB neck and shoulder pain POSSIBLE STREP, B/L EAR PAIN YEARLY Reason for Visit Urinary tract infect ion Endometriosis determined by laparoscopy Infertility Neck pain Shoulder pain Upper back pain on left side URI (upper respiratory infection) Dermatitis Anxiety and depression Sinusitis Chief Complaint infertility AUB neck and shoulder pain POSSIBLE STREP, B/L EAR PAIN YEARLY CONCERN FOR UTI DYSURIA Reason for Visit Endometriosis determ ined by laparoscopy Infertility Neck pain Shoulder pain Upper back pain on left side URI (upper respiratory infection) Dermatitis Anxiety and depression Sinusitis Dysuria Chief Complaint vag bleed poss pregn alissa Chief Complaint vag bleed poss pregn alissa Amb Documentation Amb Documentation WELLBEING New OB, RGI, Subchorionic hematoma, CONNOR 01/21/24 Reason for Visit resulting from in vitro fertilization Supervision of high-risk Anxiety and depression Asthma Chief Complaint vag bleed poss pregn alissa Amb Documentation Amb Documentation WELLBEING New OB, RGI, Subchorionic hematoma, CONNOR 01/21/24 10 WK OB, rescan 13 WK OB 18 WK OB Reason for Visit resulting from in vitro fertilization Supervision of high-risk Anxiety and depression Asthma resulting from in vitro fertilization Supervision of high-risk Anxiety and depression Asthma resulting from in vitro fertilization Supervision of high-risk Anxiety and depression Asthma resulting from in vitro fertilization Supervision of high-risk Anxiety and depression Asthma Chief Complaint WELLBEING New OB, RGI, Subchorionic hematoma, CONNOR 01/21/24 10 WK OB, rescan 13 WK OB 18 WK OB 22 WK OB R/O PRE TERM LABOR R/O PRE TERM LABOR Reason for Visit resulting from in vitro fertilization Supervision of high-risk Anxiety and depression Asthma resulting from in vitro fertilization Supervision of high-risk Anxiety and depression Asthma resulting from in vitro fertilization Supervision of high-risk Anxiety and depression Asthma resulting from in vitro fertilization Supervision of high-risk Anxiety and depression Asthma resulting from in vitro fertilization Supervision of high-risk Anxiety and depression Chief Complaint 10 WK OB, rescan 13 WK OB 18 WK OB 22 WK OB R/O PRE TERM LABOR R/O PRE TERM LABOR E ORDERS 26 WK OB/ GLUCOSE Reason for Visit resulting from in vitro fertilization Supervision of high-risk Anxiety and depression Asthma resulting from in vitro fertilization Supervision of high-risk Anxiety and depression Asthma resulting from in vitro fertilization Supervision of high-risk Anxiety and depression Asthma resulting from in vitro fertilization Supervision of high-risk Anxiety and depression Abnormal echocardiogram affecting antepartum care of mother resulting from in vitro fertilization Supervision of high-risk Anxiety and depression Chief Complaint Admit Date YEARLY February 23, 2025 7: 34am Chief Complaint Admit Date YEARLY February 23, 2025 7: 34am 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) March 08, 2025 7: 59am Reason for Visit Admit Date Dermatitis February 23, 2025 7: 34am Preventative health care February 23 7:34am Anxiety and depression February 23, 2025 7:34am De Quervain's tenosynovitis, right Augus t 2024 7:34am Encounter for routine gynecological exam ination March 08, 2025 7:59am Family History Relationship Condition Age at Onset Recorded Date/T sindi Not Specified Depression Unknown Cardiac disease Unknown Malignant melanoma Unknown Mental disorder Unknown Myocardial infarction Unknown Hypertension Unknown mother Endometriosis Unknown Cyst of uterus Unknown grandfather Alcoholism Unknown Malignant neoplasm of colon Unknown father Anxiety Unknown Disorder of thyroid Unknown brother Anxiety Unknown grandmother Arthritis Unknown Disorder of intestine Unknown aunt Malignant neoplasm of cervix Unknown Relationship Condition Age at Onset Recorded Date/T sindi Not Specified Depression Unknown Malignant melanoma Unknown Mental disorder Unknown Myocardial infarction Unknown Hypertension Unknown mother Endometriosis Unknown Cyst of uterus Unknown Malignant neoplasm of breast 44 grandfather Alcoholism Unknown Malignant neoplasm of colon Unknown father Anxiety Unknown Disorder of thyroid Unknown Cardiac disease 50 brother Anxiety Unknown grandmother Arthritis Unknown Disorder of intestine Unknown aunt Malignant neoplasm of cervix Unknown Advance Directives Advance Directive Response Recorded Date/ Time Living Will No November 10, 2021 3: 40pm Power of [place] No November 10, 2021 3:40pm Advance Directive Response Recorded Date/ Time Living Will No June 04, 2 023 7:35pm Power of [place] No June 04, 2023 7:35pm Advance Directive Response Recorded Date/ Time Living Will No September 20, 2023 4:10pm Power of [place] No September 19 4:10pm Advance Directive Response Recorded Date/ Time Living Will No June 04, 023 8:35pm Power of [place] No June 04, 2023 8:35pm Advance Directive Response Recorded Date/ Time Living Will No September 20, 2023 4:10pm Do you have a Healthcare Power of [place]erman? No September 20, 2023 4:10pm Summary Purpose Additional Source Comments Goals (unrecognized section and content) Goals may be documented in a n alternate section Care Teams (unrecognized sec tion and content) Team Status: Active Member Role Status Dates Dr. Pablito German MD Primary Care Provider Active Team Status: Inactive Member Role Status Dates Dr. Pablito German MD Primary Care Provider, Refer ring Provider Active Anastacio Graff COFFEE BAR ATTENDANT, COFFEE BAR ATTENDANT-C Attending Provider Active Team Status: Inactive Member Role Status Dates Dr. Pablito German MD Primary Care Provider, Refer ring Provider Active Desean HUNTER PA Attending Provider Active Team Status: Inactive Member Role Status Dates Dr. Pablito German MD Primary Care Provider Active Desean HUNTER PA Attending Provider, Referring Provi ankush Active Team Status: Inactive Member Role Status Dates Dr. Pablito German MD Primary Care Provider, Refer ring Provider Active Dr. Yojana Roe MD Attending Provider Active Team Status: Inactive Member Role Status Dates Dr. Pbalito German MD Primary Care P clarisse, Attending Provider, Referring Provider Active Team Status: Inactive Member Role Status Dates Dr. Pablito German MD Primary Care Provider Active Dr. Yojana Roe MD Attending Provider, Referr ing Provider Active Team Status: Inactive Member Role Status Dates Dr. Pablito German MD Primary Care Provider, Refer ring Provider Active Allen White COFFEE BAR ATTENDANT, COFFEE BAR ATTENDANT-C Attending Provider Active Team Status: Inactive Member Role Status Dates Dr. Pablito German MD Primary Care Provider Active Dr. Josh Harris DO Emergency Provider Active Team Status: Active Member Role Status Dates Dr. Pablito German MD Primary Care Provider Active Barb Dolan LPN Attending Provider Active Team Status: Inactive Member Role Status Dates Dr. Pablito German MD Primary Care Provider Active Dr. Josh Harris DO Attending Provider, Emergency P romatthew Active Team Status: Inactive Member Role Status Dates Dr. Pablito German MD Primary Care Provider Active Dr. Lydia Tang DO Attending Provider, Refe rring Provider Active Team Status: Active Member Role Status Dates Dr. Pablito German MD Primary Care Provider Active Barb Dolan RN Attending Provider Active Team Status: Inactive Member Role Status Dates Dr. Pablito German MD Primary Care Provider, Refer ring Provider Active Dr. Lydia Tang DO Attending Provider Activ e Team Status: Inactive Member Role Status Dates Dr. Pablito German MD Primary Care Provider, Refer ring Provider Active Aracelis New CNM Attending Provider Active Team Status: Inactive Member Role Status Dates Dr. Pablito German MD Primary Care Provider, Refer ring Provider Active Isidra Fang COFFEE BAR ATTENDANT, COFFEE BAR ATTENDANT-C Attending Provider Active Team Status: Active Member Role Status Dates Dr. Pablito German MD Primary Care Provider Active Dr. Yojana Roe MD Attending Pr ovider, Referring Provider, Other Provider Active Team Status: Inactive Member Role Status Dates Dr. Pablito German MD Primary Care Provider Active Isidra Fang COFFEE BAR ATTENDANT, COFFEE BAR ATTENDANT-C Attending Provider, Referring Provider Active Team Status: Active Member Role/Relationship Status Dates Dr. Pablito German MD Primary Care Provider Active Team Status: Inactive Member Role/Relationship Status Dates Dr. Pablito German MD Primary Care Provider Active Start: February 23, 2025 End: February 23, 2025 Dr. Pablito German MD Attending Provider Active Start: February 23, 2025 End: February 23, 2025 Dr. Pablito German MD Referring Provider Active Start: February 23, 2025 End: February 23, 2025 Team Status: Inactive Member Role/Relationship Status Dates Dr. Pablito German MD Primary Care Provider Active Start: March 08, 2025 End: March 08, 2025 Dr. Pablito German MD Referring Provider Active Start: March 08, 2025 End: March 08, 2025 Malika Denise CNM Attending Provider Active S tart: March 08, 2025 End: March 08, 2025 INFORMATION SOURCE (unrecogn ized section and content) DATE CREATED AUTHOR 01/05/2024 [facility] DATE CREATED AUTHOR AUTHOR'S FRANCESIZ ATMOISES 03/02/2025 [facility] FOR RECORDS PERTAINING TO PATIENTS WHO ARE OR HAVE BEEN ENROLLED IN A CHEMICAL DEPENDENCY/SUBSTANCEABUSE PROGRAM, SOME INFORMATION MAY BE OMITTED. This clinical summary was aggregated from multiple sources. Caution should be exercised in using it in the provision of clinical care. This summary normalizes information from multiple sources, and as a consequence, information in this document may materially change the coding, format and clinical context of patient data. In addition, data may be omitted in some cases. CLINICAL DECISIONS SHOULD BE BASED ON THE PRIMARY CLINICAL RECORDS. [employer] provides no warranty or guarantee of the accuracy or completeness of information in this document.
== END | disposition home or self-care (01) ==
LOC: LABSPEC 11:53
PROVIDERS: PCP Internal Medicine; Referring Provider Advanced Practice Midwife; Visit Provider Advanced Practice Midwife
DX: Z12.4 Encounter for screening for malignant neoplasm of cervix (principal)
CPT/HCPCS: 88175; G0145